=== PATIENT | female | born 1985 | race Caucasian/White ===

== ENCOUNTER → 2020-05-12 15:06 | Outpatient (CLI) | payer OTHER, MEDICAID, SELFPAY ==
[2020-05-12 16:02] LABS: Add Manual Diff / Slide Review NO; Basophils Absolute Auto 0 /uL (0-100); Basophils Percent Auto 0.3 % (0-2); Eosinophils Absolute Auto 300 /uL (0-450); Eosinophils Percent Auto 3.2 % (2-4); Hematocrit 35.1 % (36-46); Hemoglobin 11.7 g/dL (12.0-16.0); Lymphocytes Absolute Auto 1900 /uL (1100-4500); Mean Corpuscular HGB Conc 33.4 % (30-36); Mean Corpuscular Hemoglobin 29.5 PG (26-34); Mean Corpuscular Volume 88.3 fL (80-100); Monocytes Absolute Auto 400 /uL (0-900); Monocytes Percent Auto 3.9 % (3-14); Neutrophils Absolute Auto 8000 /uL (1500-7000); Neutrophils Percent Auto 74.6 % (50-75); Platelet Count 241 X10^3/uL (150-400); Red Blood Cell Count 3.97 X10^6/uL (4.0-5.2); Red Cell Distribution Width 13.4 % (11.6-14.8); White Blood Cell Count 10.7 X10^3/uL (4.5-11.0)
[2020-05-12 16:18] LABS: Appearance Urine UA CLOUDY; Bilirubin Urine UA NEGATIVE (NEGATIVE); Color Urine UA YELLOW; Glucose Urine UA NEGATIVE (Negative); Ketones Urine UA NEGATIVE (NEGATIVE); Leukocyte Esterase Urine UA NEGATIVE (NEGATIVE); Nitrite Urine UA NEGATIVE (Negative); Occult Blood Urine UA NEGATIVE (Negative); Protein Urine UA NEGATIVE (Negative); Urobilinogen Urine UA 0.2 E.U./dL (0.2)
[2020-05-12 17:22] LABS: Hepatitis B Surface Antigen NEGATIVE s/c (NEGATIVE); Rubella Antibody IgG 6.5 IU/mL (>15)
[2020-05-12 18:04] LABS: HIV 1 & 2 Ab/Ag 4th Gen Combo NEGATIVE (NEGATIVE); Hep C Virus Ab w/Reflex Quant NEGATIVE s/c (NEGATIVE)
[2020-05-13 09:06] LABS: RPR Screen Non Reactive (Non Reactive)
[2020-05-13 10:40] LABS: Varicella IgG Antibody 398 index (Immune >165)
[2020-05-14 20:08] LABS: Estriol, Free 0.89 ng/mL (.); Inhibin A, Dimeric 84.15 pg/mL (.); Inhibin A, MoM 0.67 (.); Maternal Ethnicity Caucasian (.); Maternal Weight 256 lbs (.); Number of Fetuses No (.); OSBR Risk 1 IN 10000 (.); Results Report (.); Test Results *Screen Negative* (.); hCG, Serum 22759 mIU/mL (.)
== END ==
PROVIDERS: PCP Family Medicine; Referring Provider Obstetrics & Gynecology; Visit Provider Obstetrics & Gynecology
DX: Z34.82 Encounter for supervision of other normal pregnancy, second trimester (principal); Z3A.18 18 weeks gestation of pregnancy
CPT/HCPCS: 36415; 80055; 81003; 82105; 82677; 84702; 86336; 86787; 86803; 86850; 86900; 86901; 87086; 87389

== ENCOUNTER → 2020-05-30 12:14 | Outpatient (CLI) | payer OTHER, MEDICAID, SELFPAY ==
--- NOTE | 2020-05-30 12:14 | DI.US.S_ITS ---
PROCEDURE: US OB >= 14 WEEKS FETUS INDICATIONS: ANATOMY OUTSIDE/PRIOR DATING DATA: Last menstrual period (LMP): 01/03/2020. LMP-based estimated date of delivery (SU): 10/09/2020 . First dating scan (date and location): 04/17/2020 . Estimated date of delivery (SU) from first dating scan: 10/08/2020 . TECHNIQUE: Real-time scanning was performed of the fetus, with image documentation and biometric measurements. Endovaginal scanning: No COMPARISON: [facility], , OB >= 14 WEEKS FETUS, 04/17/2020, 13:14. FINDINGS: General: A single living intrauterine gestation is present. Presentation: Transverse. Placenta: Placental position is anterior , without previa. Amniotic fluid index: 16.6 cm, normal range is 5-24 cm. heart rate: 153 beats per minute. Maternal cervical canal: 3.5 cm long. Normal lower limit is 2.5 cm. biometrics: Biparietal diameter: 21 weeks 3 days Head circumference: 22 weeks Abdominal circumference: 23 weeks Femur length: 22 weeks 5 days Estimated gestational age from initial scan: 21 weeks 2 days Composite gestational age from present scan: 22 weeks 2 days Estimated weight and percentile: 527 g; 98th percentile Measurement variability for biometric dating: +/- 7 days from 14 weeks to 15 weeks 6 days gestation, +/- 10 days from 16 weeks to 21 weeks 6 days gestation, +/- 2 weeks from 22 weeks to 27 weeks 6 days gestation, +/- 3 weeks for 28 weeks gestation or later. weight reference: 4500 g or EFW >90/95% is considered macrosomia or large for gestational age. EFW <10% is small for gestational age. EFW 5% or less is considered intra-uterine growth restriction. Anatomic survey: Neuro: Ventricles are non-dilated at less than 10 mm. Cisterna magna is normal at 3-11 mm. Cerebellum is normal in size and morphology. Nuchal skin fold: Normal at less than 6 mm between 14-21 weeks gestational age. Face: Nose and lips, facial profile are normal. Spine: No evidence for spina bifida. Heart: Suboptimally visualized. Diaphragm: Diaphragm is intact. Stomach: Left-sided stomach is present. Kidneys: No hydronephrosis. Normal is less than 5 mm in 2nd trimester, less than 7 mm in 3rd trimester. Cord: 3-vessel cord has orthotopic insertion. Bladder: Normal in size. Extremities: Right upper extremity not well visualized; otherwise normal extremities. IMPRESSION: 1. Single living IUP redemonstrated and interval growth is greater than expected with estimated weight 98th percentile. Follow-up recommended. 2. heart not well visualized as well as the right upper extremity; otherwise normal anatomy. Follow-up recommended. Dictated by: Christofer KRAUSE Interpreted: Colin Petersen MD on 05/30/2020 at 16:42 Approved by: Colin Petersen M.D. on 05/30/2020 at 17:23
== END ==
PROVIDERS: PCP Family Medicine; Referring Provider Obstetrics & Gynecology; Visit Provider Obstetrics & Gynecology
DX: Z34.82 Encounter for supervision of other normal pregnancy, second trimester (principal); Z3A.22 22 weeks gestation of pregnancy
CPT/HCPCS: 76811

== ENCOUNTER → 2020-06-24 08:41 | Outpatient (CLI) | payer OTHER, MEDICAID, SELFPAY ==
[2020-06-24 10:32] LABS: Hematocrit 33.5 % (36-46); Hemoglobin 11.5 g/dL (12.0-16.0)
[2020-06-24 11:44] LABS: GTT (PREG) 1 Hour PP 50gm Dose 87 mg/dL (76-139)
== END ==
PROVIDERS: PCP Family Medicine; Referring Provider Obstetrics & Gynecology; Visit Provider Obstetrics & Gynecology
DX: Z34.82 Encounter for supervision of other normal pregnancy, second trimester (principal); Z3A.26 26 weeks gestation of pregnancy
CPT/HCPCS: 36415; 82950; 85014; 85018; 87086

== ENCOUNTER → 2020-07-17 15:57 | Outpatient (CLI) | payer OTHER, MEDICAID, SELFPAY ==
[2020-07-17 20:51] LABS: Urine N gonorrhoeae NOT DETECTED
[2020-07-17 21:07] LABS: Urine Chlamydia NOT DETECTED
== END ==
PROVIDERS: PCP Family Medicine; Visit Provider Obstetrics & Gynecology
DX: Z34.82 Encounter for supervision of other normal pregnancy, second trimester (principal); Z3A.28 28 weeks gestation of pregnancy
CPT/HCPCS: 87491; 87591

== ENCOUNTER 2020-09-10 10:19 | Outpatient (CLI) | payer OTHER, MEDICAID, SELFPAY ==
[2020-09-10 11:12] LABS: Add Manual Diff / Slide Review NO; Basophils Absolute Auto 0 /uL (0-100); Basophils Percent Auto 0.2 % (0-2); Eosinophils Absolute Auto 300 /uL (0-450); Eosinophils Percent Auto 3.4 % (2-4); Hematocrit 34.8 % (36-46); Hemoglobin 11.7 g/dL (12.0-16.0); Lymphocytes Absolute Auto 1600 /uL (1100-4500); Lymphocytes Percent Auto 17.9 % (25-40); Mean Corpuscular HGB Conc 33.7 % (30-36); Mean Corpuscular Hemoglobin 30.1 PG (26-34); Mean Corpuscular Volume 89.2 fL (80-100); Monocytes Absolute Auto 500 /uL (0-900); Monocytes Percent Auto 5.8 % (3-14); Neutrophils Absolute Auto 6400 /uL (1500-7000); Neutrophils Percent Auto 72.7 % (50-75); Platelet Count 151 X10^3/uL (150-400); Red Cell Distribution Width 13.8 % (11.6-14.8); White Blood Cell Count 8.8 X10^3/uL (4.5-11.0)
[2020-09-10 11:24] LABS: Aspartate Aminotransferase 24 IU/L (14-36); BUN Creatinine Ratio 22.7 (6-22); Blood Urea Nitrogen 10 mg/dL (7-17); Estimated Glomerular Filt Rate > 60.0 mL/min (>60); Uric Acid 6.2 mg/dL (2.5-6.2)
== END 2020-09-10 13:19 | disposition home or self-care (01) ==
LOC: LABOR 12:26 → OB 09-11 06:33
PROVIDERS: PCP Family Medicine; Referring Provider Obstetrics & Gynecology; Visit Provider Obstetrics & Gynecology
DX: O13.3 Gestational [pregnancy-induced] hypertension without significant proteinuria, third trimester (principal); O09.523 Supervision of elderly multigravida, third trimester; Z3A.35 35 weeks gestation of pregnancy
CPT/HCPCS: 36415; 59025; 59050; 84450; 84550; 85025; 87653; G0378; G0379

== ENCOUNTER → 2020-09-10 10:21 | Outpatient (CLI) | payer OTHER, MEDICAID, SELFPAY ==
[2020-09-11 13:00] LABS: Strep Grp B PCR NEG for Grp B Strep
== END ==
PROVIDERS: PCP Family Medicine; Visit Provider Obstetrics & Gynecology
DX: Z34.83 Encounter for supervision of other normal pregnancy, third trimester (principal); Z3A.35 35 weeks gestation of pregnancy
CPT/HCPCS: 87653

== ENCOUNTER 2020-09-17 10:01 | Outpatient (CLI) | payer OTHER, MEDICAID, SELFPAY | END 2020-09-17 10:50 | disposition home or self-care (01) | LOC: LABOR 10:36 → OB 09-22 08:03 | PROVIDERS: PCP Family Medicine; Referring Provider Obstetrics & Gynecology; Visit Provider Obstetrics & Gynecology | DX: O13.3 Gestational [pregnancy-induced] hypertension without significant proteinuria, third trimester (principal); O99.891 Other specified diseases and conditions complicating pregnancy; O12.00 Gestational edema, unspecified trimester; O47.03 False labor before 37 completed weeks of gestation, third trimester; R51.9 Headache, unspecified; H53.8 Other visual disturbances; Z3A.36 36 weeks gestation of pregnancy | CPT/HCPCS: 36415; 59025; 82565; 84450; 84460; 84520; 84550; 85025; G0378; G0379 ==

== ENCOUNTER → 2020-09-17 11:25 | Outpatient (CLI) | payer OTHER, MEDICAID, SELFPAY ==
[2020-09-17 11:40] LABS: Add Manual Diff / Slide Review NO; Basophils Absolute Auto 0 /uL (0-100); Basophils Percent Auto 0.5 % (0-2); Eosinophils Absolute Auto 300 /uL (0-450); Eosinophils Percent Auto 3.2 % (2-4); Hematocrit 34.8 % (36-46); Hemoglobin 11.7 g/dL (12.0-16.0); Lymphocytes Absolute Auto 1400 /uL (1100-4500); Lymphocytes Percent Auto 15.8 % (25-40); Mean Corpuscular HGB Conc 33.5 % (30-36); Mean Corpuscular Hemoglobin 29.8 PG (26-34); Monocytes Absolute Auto 500 /uL (0-900); Neutrophils Absolute Auto 6900 /uL (1500-7000); Neutrophils Percent Auto 75.5 % (50-75); Platelet Count 167 X10^3/uL (150-400); Red Blood Cell Count 3.91 X10^6/uL (4.0-5.2); Red Cell Distribution Width 13.7 % (11.6-14.8); White Blood Cell Count 9.1 X10^3/uL (4.5-11.0)
[2020-09-17 11:52] LABS: Alanine Aminotransferase 19 IU/L (<35); Aspartate Aminotransferase 30 IU/L (14-36); BUN Creatinine Ratio 22.7 (6-22); Blood Urea Nitrogen 10 mg/dL (7-17); Estimated Glomerular Filt Rate > 60.0 mL/min (>60); Uric Acid 6.7 mg/dL (2.5-6.2)
== END ==
PROVIDERS: PCP Family Medicine; Referring Provider Obstetrics & Gynecology; Visit Provider Obstetrics & Gynecology
DX: O99.891 Other specified diseases and conditions complicating pregnancy (principal); H53.8 Other visual disturbances; O12.00 Gestational edema, unspecified trimester; R51.9 Headache, unspecified
CPT/HCPCS: 36415; 82565; 84450; 84460; 84520; 84550; 85025

== ENCOUNTER 2020-09-22 03:11 | Inpatient (IN) | payer OTHER, MEDICAID, SELFPAY ==
[2020-09-22] VITALS (7 sets, daily range): BP systolic 115–139; BP diastolic 69–88; PULSE 70–113; RESP 14–20; TEMP 36.6; O2SAT 97–100
--- NOTE | 2020-09-22 03:41 | P.HPOB_ITS ---
OB HPI Date/Time Date of admission: 09/22/20 Date Patient Seen: 09/22/20 Time Patient Seen: 04:03 History of Present Condition Chief complaint: Evaluation of Labor : 2 Para: 1 Estimated Date of Delivery: 10/09/20 Estimated Gestational Age (weeks): 37 Narrative: Tayla Verdin is a 34 year old @37+4 admitted in active labor, s/p SROM for clear fluid 3 hours prior to admission. The patient reports that her contractions began 4 hours prior to admission, and she has had some bloody show. Patient has not felt movement over the last few hours. The patient reports a severe sharp pain at the site of her prior uterine incision with each contraction. She denies headaches, visual changes, chest pain, or other preeclampsia symptoms, though she was diagnosed with gestational hypertension 2 weeks ago and started on 100 mg of labetalol b.i.d.. The patient denies any other complications. The patient was transferred by air from [facility], and the transferring paramedics autonomously administered a 2.5mg magnesium sulfate bolus en route as well as terbutaline, though this was not discussed with the receiving team prior to administration. The patient reports a history of prior section, saying ?part of the head came out and the rest did not, so they had to do an emergency .The patient does not desire a tubal ligation. She denies any other contributory medical, surgical, or family history. Indications Operative indications ( section): previous uterine surgery History of Present care: good care, initiated at week # (15) and number of visits (8) Dating criteria: LMP confirmed by 2nd trimester US Ultrasounds: normal mid trimester US Obstetrical complications: gestational hypertension Medical complications: none Preadmission Labs Blood type: A (+) positive -: Antibody screen: negative, GBS status: negative, HBsAG: negative, HIV: negative and RPR/VDLR: negative -: Chlamydia screen: not detected and Gonorrhea screen: not detected -: Rubella: not immune and Varicella: immune HCAB: negative Quad screen: Normal Urine: No growth 1 hr GTT: 87 Prior (ies) History: G1: 08/10/12, 39.4, 8#13, CS in second stage, UW, ?shoulder dystocia?, male, [place] Evaluation Evaluation Baseline heart rate: 135 Variability: Moderate (11-25) monitor accelerations: Present Monitor Decelerations: Variable Contraction Frequency (minutes): 2 Uterine Contraction Intensity: Strong/Firm Category of Tracing: Non-reactive Status: Category ll Cervical dilation (cm): 8 Cervical effacement (%): 100 station: -2 Comments: grossly ruptured, clear fluid. [facility] Medical History AMA (advanced maternal age) multigravida 35+ Anxiety Asthma Migraine Ovarian cyst Pneumonia Surgical History H/O breast augmentation (~2008) History of appendectomy History of carpal tunnel surgery of right wrist (~2014) Hx of tonsillectomy (~2016) S/P primary low transverse (~08/10/12) S/P wisdom tooth extraction (~2008) Family History Mother History of prediabetes Cancer Breast cancer AA (alcohol abuse) Father Joint replaced Sepsis Grandmother Head injury due to trauma Smoker Obesity Wheelchair bound Grandfather Cancer Colon cancer Grandmother Alzheimers disease Grandfather Head injury due to trauma AA (alcohol abuse) Sister No problems noted. 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 current occupational exposures/hazards: No special tiff needs: No Smoking Status: Never smoker second hand exposure: No alcohol intake: former (pre- : very rare use) substance use type: does not use Meds Home Medications and Allergies Home Medications Medication Instructions Recorded Confirmed Type dextroamphetamine-amphetamine 20 20 mg PO DAILY 04/15/20 09/17/20 History mg tablet ferrous sulfate 325 mg (65 mg 325 mg PO DAILY 04/15/20 09/17/20 History iron) tablet prenat.vits,amna,ikt-epvf-kzfax 1 tab PO DAILY 04/15/20 09/17/20 History labetalol 100 mg tablet 100 mg PO BID #60 tab 09/10/20 09/17/20 Rx Allergies Allergy/AdvReac Type Severity Reaction Status Date / Time amoxicillin Allergy Severe Major Hives Verified 09/17/20 10:53 Penicillins Allergy Severe Severe Verified 09/17/20 10:53 Hives Review of Systems Constitutional Constitutional: Reports system reviewed and no additional complaints, except as documented Cardiovascular Cardiovascular: Reports system reviewed and no additional complaints, except as documented Respiratory Respiratory: Reports system reviewed and no additional complaints, except as documented Gastrointestinal Gastrointestinal: Reports as per HPI Genitourinary Genitourinary: Reports as per HPI Neurologic Neurologic: Reports system reviewed and no additional complaints, except as documented Exam Vital Signs (past 8 hours): 154/76 Const General: cooperative GI Other: Significant tenderness over prior CS incision Extrem Other: 3+ LE edema, 2+ UE edema Objective Labs Result Diagrams: 09/22/20 03:25 09/22/20 04:00 Assessment and Plan Assessment and Plan Assessment and Plan narrative: This patient was admitted in active labor with a history of prior CS for ?shoulder dystocia, with advanced cervical dilation, high station, a cat 2 heart rate tracing, severe sharp suprapubic pain with contractions and significant tenderness over her prior incision. Concern for in progress or incipient uterine rupture was high, and she was taken for urgent section as detailed in the operative report. The lower uterine segment was paper thin but not ruptured, and she was delivered of a healthy baby boy without further complication. She has a diagnosis of gHTN but did not sustain severe range blood pressures and has no other severe features. - preeclampsia labs pending - routine post CS care - ordered for prophylactic lovenox 40mg daily to start 12 hours postop, SCDs in place and running - close monitoring of BPs
[2020-09-22 03:50] LABS: Add Manual Diff / Slide Review NO; Basophils Absolute Auto 100 /uL (0-100); Basophils Percent Auto 0.7 % (0-2); Eosinophils Absolute Auto 200 /uL (0-450); Eosinophils Percent Auto 1.8 % (2-4); Hematocrit 35.1 % (36-46); Hemoglobin 11.7 g/dL (12.0-16.0); Lymphocytes Absolute Auto 2200 /uL (1100-4500); Lymphocytes Percent Auto 22.6 % (25-40); Mean Corpuscular HGB Conc 33.2 % (30-36); Mean Corpuscular Hemoglobin 29.5 PG (26-34); Mean Corpuscular Volume 88.8 fL (80-100); Monocytes Absolute Auto 600 /uL (0-900); Monocytes Percent Auto 6.4 % (3-14); Neutrophils Absolute Auto 6600 /uL (1500-7000); Neutrophils Percent Auto 68.5 % (50-75); Platelet Count 179 X10^3/uL (150-400); Red Blood Cell Count 3.96 X10^6/uL (4.0-5.2); Red Cell Distribution Width 13.9 % (11.6-14.8); White Blood Cell Count 9.7 X10^3/uL (4.5-11.0)
[2020-09-22 03:57] LABS: COVID19 - ADMIT (NP swab/PCR) Negative (Negative)
[2020-09-22] MEDS: CLINDAMYCIN 900 MG/50 ML PIGGYBACK 50 MG IV (04:05)
[2020-09-22] MEDS: ACETAMINOPHEN IV 1,000 MG/100 ML VIAL 400 MG IV (04:25)
[2020-09-22] MEDS: LACTATED RINGERS 1,000 ML 100 ML IV (04:25)
--- NOTE | 2020-09-22 04:26 | SUR.OPER ---
Supine on Padded OR bed, head on pillow, safety belt at thigh, arms secured on padded arm boards at <90 degrees abduction. Bump under right buttock. Legs uncrossed with pillow under knees, gel pad to heels, tape over blanket to lower legs.
[2020-09-22 04:28] LABS: Alanine Aminotransferase 21 IU/L (<35); Albumin 3.2 g/dL (3.5-5.0); Albumin Globulin Ratio 1.1 (1.0-2.8); Alkaline Phosphatase 119 U/L (38-126); Aspartate Aminotransferase 32 IU/L (14-36); Bilirubin Total 0.4 mg/dL (0.2-1.3); Blood Urea Nitrogen 16 mg/dL (7-17); Calcium 9.5 mg/dL (8.4-10.2); Carbon Dioxide 22 mmol/L (22-32); Chloride 106 mmol/L (98-107); Estimated Glomerular Filt Rate > 60.0 mL/min (>60); Globulin 2.9 g/dL (1.7-4.1); Glucose 108 mg/dL (70-100); HEMOLYSIS 18 (0-50); Sodium 135 mmol/L (137-145); Total Protein 6.1 g/dL (6.3-8.2); Uric Acid 7.7 mg/dL (2.5-6.2)
[2020-09-22 04:34] LABS: Lactate Dehydrogenase 512 U/L (313-618)
--- NOTE | 2020-09-22 04:37 | SUR.OPER ---
Viable male delivered at 04:31. Cord blood vials x2 and placenta sent with L&D RN.
[2020-09-22] MEDS: ONDANSETRON 4 MG/2 ML INJ IV (05:31)
--- NOTE | 2020-09-22 05:34 | PM.OBCS.1 ---
Procedure & Clinicians Procedure: repeat section Same procedure as scheduled: Yes Indications: prior section, labor, suspected macrosomia Surgeon: Judy Vanessa Farm Equipment Assembler: Alissa Deshpande Reason for Farm Equipment Assembler: Assistance with emergent CS- delivery of infant, retraction Anesthesia Type: Spinal Operative Notes Findings: Copious Closure Type: primary Specimen(s): cord blood Estimated Blood Loss (mL): 500 Procedure in detail: EBL: 500ccs Fluids:1700ccs LR UOP: 50ccs concentrated yellow urine Findings: Male infant in cephalic presentation, Apgars 9+9, weight 8#12, normal uterus, tubes, ovaries. Copious scar tissue from subcutaneous layer down to uterus, with omental adhesions to bladder, anterior abdominal wall and anterior uterus. Procedures: The patient was taken to the operating room where spinal anesthesia was placed and found to be adequate. She was prepped and draped in the normal sterile fashion in the dorsal supine position with a leftward tilt. A vaginal prep was performed. A Pfannenstiel skin incision was made with a scalpel and carried through to the underlying layer of fascia. The fascia was incised in the midline and the incision extended laterally with Winston scissors. The superior aspect of this incision was grasped with Daly clamps, elevated, and the underlying rectus muscles dissected off bluntly and with the curved Winston scissors. Attention was then turned to the inferior aspect of this incision which, in a similar fashion, was grasped, tented up with the Daly clamps, and the rectus muscles dissected off bluntly and with the curved Winston scissors. Scar tissue was reduced with the bovie and the curved mayos throughout. The rectus muscles were then in the midline, and the peritoneum identified, tented up, and entered sharply with Metzenbaum scissors. The peritoneal incision was extended superiorly and inferiorly with good visualization of the bladder. The bladder blade was inserted and the vesicouterine peritoneum identified, grasped with pickups, and entered sharply with the Metzenbaum scissors. This incision was extended laterally, and the bladder flap created digitally. The bladder blade was then reinserted and the lower uterine segment incised in transverse fashion with the scalpel. The uterine incision was bluntly extended laterally. The bladder blade was removed, and the infant's head delivered atraumatically. After 30 seconds of delayed cord clamping, the cord was clamped and cut. The nose and mouth were suctioned as needed with a bulb syringe, and the was handed off to awaiting pediatricians. The placenta was then removed spontaneously, and the uterus was exteriorized and cleared of all clots and debris. The uterine incision was repaired with 1-0 chromic in a running, locked fashion and a 2nd layer of the same suture was used to obtain excellent hemostasis. The omental adhesions were removed well above their attachment to the bladder to prevent later entrapment of bowel. The uterus was returned to the abdomen, and the gutters were cleared of all clots and debris. Reduction of scar tissue made a bladder flap and peritoneum closure not feasible, and the fascia was reapproximated with 0 Vicryl in a running fashion. The subcutaneous layer was placed with 3 0 Vicryl in an interrupted fashion and the skin was closed with 4-0 biosyn in a running fashion. The patient tolerated the procedure well. Sponge lap and needle counts were correct x2. 900g clindamycin was given at commencement of the case, and 5 mg/kg gentamicin ordered but given after the case when available. The patient was taken to the recovery room in stable condition. Complications: none [place] Baby 1: Infant Gender: Male Presentation: vertex Position: Left Occiput Anterior Placental Delivery Description: Manual Removal Cord Vessel Description: 3 Vessels score (1 min): 9 score (5 min): 9 weight: 8 lb 12 oz Post-operative Condition: stable Disposition: PACU Aftercare: routine postop
[2020-09-22] MEDS: MEPERIDINE 50 MG/ML INJ 12.5 MG IV (05:36)
--- NOTE | 2020-09-22 06:20 | SUR.PHASEI ---
Pt arrived to PACU awake, with shakes and c/o nausea. Bare Hugger applied, medicated with ondansetron then when nausea soon resolved medicated with demerol. Stable PACU stay to , report given and pt left in stable condition.
[2020-09-22 07:20] LABS: Creatinine Urine Random 275.9 mg/dL; Protein (Total) Urine Random 15 mg/dL (0-12); Protein Creatinine Ratio Urine 0.05 GRAM/24H
[2020-09-22] MEDS: OXYCODONE IR 5 MG TABLET PO ×2 (07:49→08:46)
[2020-09-22] MEDS: LANOLIN OINT 7 GM 1 APPLIC TOP (07:49)
[2020-09-22] MEDS: LABETALOL 100 MG TABLET PO ×2 (08:46→21:20)
[2020-09-22] MEDS: KETOROLAC 30 MG/ML VIAL IV ×3 (11:16→23:29)
[2020-09-22] MEDS: OXYCODONE IR 10 MG TABLET PO ×3 (12:31→20:50)
[2020-09-22] MEDS: ACETAMINOPHEN 325 MG TABLET 650 MG PO (18:20)
[2020-09-23 00:15] VITALS: BP 97/62; PULSE 113
[2020-09-23] MEDS: ACETAMINOPHEN 325 MG TABLET 650 MG PO ×4 (00:30→18:28)
[2020-09-23] MEDS: OXYCODONE IR 10 MG TABLET PO ×6 (00:49→22:00)
[2020-09-23] MEDS: IBUPROFEN 600 MG TABLET PO ×3 (05:51→18:29)
[2020-09-23 06:54] LABS: Add Manual Diff / Slide Review NO; Basophils Absolute Auto 0 /uL (0-100); Basophils Percent Auto 0.2 % (0-2); Eosinophils Absolute Auto 100 /uL (0-450); Eosinophils Percent Auto 1.4 % (2-4); Hematocrit 29.1 % (36-46); Hemoglobin 9.7 g/dL (12.0-16.0); Lymphocytes Absolute Auto 1000 /uL (1100-4500); Lymphocytes Percent Auto 13.2 % (25-40); Mean Corpuscular HGB Conc 33.3 % (30-36); Mean Corpuscular Hemoglobin 29.9 PG (26-34); Mean Corpuscular Volume 89.8 fL (80-100); Monocytes Absolute Auto 400 /uL (0-900); Monocytes Percent Auto 5.3 % (3-14); Neutrophils Absolute Auto 6300 /uL (1500-7000); Neutrophils Percent Auto 79.9 % (50-75); Platelet Count 147 X10^3/uL (150-400); Red Blood Cell Count 3.24 X10^6/uL (4.0-5.2); Red Cell Distribution Width 14.3 % (11.6-14.8); White Blood Cell Count 7.9 X10^3/uL (4.5-11.0)
[2020-09-23] MEDS: ENOXAPARIN 40 MG/0.4 ML SYRINGE SUBCUT (08:45)
[2020-09-23 08:46] VITALS: BP 110/74; PULSE 80
[2020-09-23] MEDS: LABETALOL 100 MG TABLET PO ×2 (08:46→21:14)
[2020-09-23] MEDS: ALBUMIN HUMAN 25 GM/100 ML VIAL IV (13:00)
[2020-09-23] MEDS: FUROSEMIDE 20 MG/2 ML VIAL IV (14:42)
--- NOTE | 2020-09-23 19:13 | PM.OBPN.1 ---
Subjective - OB Subjective Patient comments: no complaints, pain well controlled, tolerating diet and flatus present baby status: doing well and nursing well [place] feeding status: breast and bottle feeding Date Patient Seen: 09/23/20 Time Patient Seen: 19:13 Interval history: Patient is a 34-year-old 3 para 2 post op day # 1 status post repeat low-transverse section. She is and supplementing. Pain is fairly well controlled. She is ambulating without assistance. She has voided without the catheter. She has had over 2000 cc of urine out since diuretics. Exam Vital Signs (past 8 hours): Oxygen Delivery Method Room Air Narrative Exam Narrative: Generally: Patient is sitting up in bed, nursing infant, no acute distress Lungs: Clear to auscultation bilaterally Cardiovascular: Regular rate and rhythm Abdomen: Soft, appropriately tender. Fundus: Firm at U Incision: Clean dry and intact with Aquacel dressing Extremities: 1+ edema, negative home Objective Labs Result Diagrams: 09/23/20 06:31 09/22/20 04:00 Labs: Laboratory Results - last 24 hr 09/23/20 06:31 WBC 7.9 RBC 3.24 L Hgb 9.7 L Hct 29.1 L MCV 89.8 MCH 29.9 MCHC 33.3 RDW 14.3 Plt Count 147 L Neut % (Auto) 79.9 H Lymph % (Auto) 13.2 L Mathews % (Auto) 5.3 Eos % (Auto) 1.4 L Baso % (Auto) 0.2 Neut # (Auto) 6300 Lymph # (Auto) 1000 L Mathews # (Auto) 400 Eos # (Auto) 100 Baso # (Auto) 0 Assessment & Plan Plan day: 1 plan OB: routine postop care and other (Check BMP) Time Spent With Patient Time: Total time spent is greater than 50% in coordination of care (as documented) at patient's floor/unit and/or counseling patient: Time with patient: 15-24 minutes
[2020-09-23 20:52] LABS: BUN Creatinine Ratio 17.1 (6-22); Blood Urea Nitrogen 7 mg/dL (7-17); Calcium 9.2 mg/dL (8.4-10.2); Carbon Dioxide 26 mmol/L (22-32); Chloride 102 mmol/L (98-107); Estimated Glomerular Filt Rate > 60.0 mL/min (>60); Glucose 96 mg/dL (70-100); HEMOLYSIS < 15 (0-50); Potassium 3.7 mmol/L (3.4-5.1); Sodium 134 mmol/L (137-145)
[2020-09-24] MEDS: IBUPROFEN 600 MG TABLET PO ×2 (00:40→06:57)
[2020-09-24] MEDS: ACETAMINOPHEN 325 MG TABLET 650 MG PO ×2 (00:40→06:57)
[2020-09-24] MEDS: OXYCODONE IR 10 MG TABLET PO ×2 (02:33→10:00)
[2020-09-24] MEDS: OXYCODONE IR 5 MG TABLET PO (06:03)
[2020-09-24 10:01] VITALS: BP 126/75
[2020-09-24] MEDS: LABETALOL 100 MG TABLET PO (10:01)
--- NOTE | 2020-10-17 15:52 | P.DS_ITS ---
Discharge Providers Provider Date of admission: 09/22/20 Discharge Date: 09/24/20 Primary care physician: Saeid Sarabia MD Discharge provider: Dayanara Jeffries MD Summary Hospital Course Date Patient Seen: 09/24/20 Time Patient Seen: 13:00 Diagnoses: 37 4/7 weeks gestation Previous section Spontaneous rupture membranes Gestational hypertension Hospital Course: Patient is a 34-year-old 2 para 2 who presented on September 22, 2020 with spontaneous rupture of membranes at 37 4/7 weeks gestation. She had had a prior section. She underwent a repeat low-transverse section. On postop day # 1 due to severe swelling patient was given IV Lasix and IV albumin to try to diurese. She diuresed about 5 L of fluid. Her course was otherwise unremarkable and she was discharged home on postop day # 2. Peripartum Data Infant Delivery Method: Section Laceration Description: None Episiotomy description: None Procedures: Spinal anesthesia Repeat low-transverse section complications: none [place] 1: Disposition of : home Status at Discharge Cognitive/behavioral status at discharge: oriented Functional status at discharge: independent ambulation Overall status at discharge: patient is progressing back to baseline Time Spent with Patient Time attestation: Total time spent providing and/or coordinating discharge services: Time spent: Less than 30 minutes Exam Narrative Exam Narrative: Generally: Patient is sitting up in bed, holding infant, no acute distress Lungs: Clear to auscultation bilaterally Cardiovascular: Regular rate and rhythm Fundus: Firm at U -1 Incision: Clean dry and intact with Aquacel dressing Extremities: 2+ pitting edema. 1+ DTRs. Negative Homans. Discharge Plan Discharge orders & Medications Discharge Orders: Discharge (Order); Ordered 10/17/20 Ordered By: Dayanara Jeffries Prescriptions: No Action labetalol 100 mg tablet 100 mg PO BID Qty: 60 RF: 0 oxycodone 10 mg tablet 10 mg PO Q4H PRN (Reason: pain) Qty: 42 RF: 0 oxycodone 10 mg tablet 10 mg PO Q6H PRN (Reason: pain) Qty: 30 RF: 0 furosemide [Lasix] 20 mg tablet 20 mg PO DAILY Qty: 30 RF: 2 prenat.vits,amna,goc-rimd-sxnqb Tablet 1 tab PO DAILY RF: 0 ibuprofen 600 mg Tablet 600 mg PO Q6H PRN (Reason: Fever/Mild Pain (1-3)) 30 Days Qty: 90 RF: 0 oxycodone 10 mg tablet 10 mg PO Q4H PRN (Reason: Pain (Scale Score 7-10)) Qty: 14 RF: 0 Follow up/Referrals: Saeid Sarabia MD [Primary Care Provider] - Discharge Data Primary Care Provider: Saeid Sarabia
== END 2020-09-24 11:50 | disposition home or self-care (01) | DRG 540 ==
PROVIDERS: Obstetrics & Gynecology; Admitting Provider Obstetrics & Gynecology; PCP Family Medicine; Referring Provider Obstetrics & Gynecology; Visit Provider Obstetrics & Gynecology
PROC: 10D00Z1 Extraction of Products of Conception, Low, Open Approach (ICD-10-PCS; CPT 59514; principal; 2020-09-22 04:00)
DX: O13.4 Gestational [pregnancy-induced] hypertension without significant proteinuria, complicating childbirth (principal); O36.63X0 Maternal care for excessive fetal growth, third trimester, not applicable or unspecified; Z3A.37 37 weeks gestation of pregnancy; Z37.0 Single live birth
CPT/HCPCS: 36415; 59514; 80048; 80053; 82570; 83615; 84156; 84550; 85025; 86850; 86900; 86901; 87635; C9803; G0379; J0131; J1650; J1885; J1940; J2175; J2405; J2590; P9041

== ENCOUNTER 2020-10-01 13:51 | Inpatient (IN) | payer OTHER, MEDICAID, SELFPAY ==
[2020-10-01] VITALS (12 sets, daily range): BP systolic 104–128; BP diastolic 56–72; PULSE 85–121; RESP 10–25; TEMP 36.3–37.1; O2SAT 92–97; BMI 52.1; BMI 52.9
--- NOTE | 2020-10-01 13:52 | DI.CT.S_ITS ---
PROCEDURE: CT ANGIO CHEST PE PROTOCOL INDICATIONS: , post csection TECHNIQUE: After the administration of intravenous contrast, 2 mm thick sections acquired from the pulmonary apices to the posterior costophrenic angles. 3-dimensional maximum intensity projection (MIP) coronal and sagittal reformats were then acquired through the thorax. For radiation dose reduction, the following was used: automated exposure control, adjustment of mA and/or kV according to patient size. COMPARISON: None. FINDINGS: Image quality: Excellent. Pulmonary arteries: Pulmonary arteries are normal in size, and demonstrate no intraluminal filling defects to suggest central pulmonary embolism. Lungs and pleura: Lungs are clear. No pleural effusions or pneumothorax. Central and peripheral airways are patent. Mediastinum: Heart size is normal, without pericardial effusion. No mediastinal or hilar adenopathy. Thoracic aorta is normal in caliber and enhancement. Esophagus is normal in caliber, without hiatal hernia. Bones and chest wall: No suspicious bony lesions. Ribs and thoracic spine appear intact throughout. Thyroid gland contains a sub cm left thyroid nodule. No axillary or supraclavicular adenopathy. Abdomen: Visualized upper abdominal solid organs appear normal in the early arterial phase of enhancement. IMPRESSION: 1. No evidence of acute pulmonary emboli. 2. No evidence of acute pulmonary process. 3. Incidental subcentimeter left thyroid nodule. Dictated by: Jaswant Ronquillo M.D. on 10/01/2020 at 14:26 Approved by: Jaswant Ronquillo M.D. on 10/01/2020 at 14:29
--- NOTE | 2020-10-01 13:52 | DI.US.S_ITS ---
PROCEDURE: US ABDOMEN COMPLETE INDICATIONS: , RUQ PAIN, SWELLING, / HELLP TECHNIQUE: Real-time scanning was performed of the abdominal and retroperitoneal organs, with image documentation. COMPARISON: None. FINDINGS: Liver: Liver is normal in size and homogeneous in echotexture. Gallbladder: There is a moderately large gallstone mobile within the gallbladder lumen that measures up to 2.6 cm in dimension. The gallbladder and adjacent bile ducts otherwise appeared normal. Biliary ducts: Intrahepatic bile ducts are non-dilated. Extrahepatic bile duct caliber measures 6.2 mm. Normal is 6-7 mm or less in diameter, or 10 mm or less post-cholecystectomy. Pancreas: Visualized portions of the pancreas are sonographically normal. Spleen: Spleen is enlarged in size at 16 cm craniocaudad, and homogeneous in echotexture. Kidneys: Kidneys are normal in size and echotexture. Right kidney measures 14.7 cm long; left kidney measures 13.1 cm long. No hydronephrosis or nephrolithiasis. No solid masses. Aorta: Visualized aorta is normal in caliber at less than 3 cm. Iliacs: Proximal common iliac arteries are normal in caliber at less than 2.5 cm. IVC: Intrahepatic inferior vena cava is patent. Miscellaneous: No free abdominal fluid. IMPRESSION: Moderately large gallstone within the gallbladder lumen but no sign of acute cholecystitis or biliary obstruction. There is no sign of ascites. Splenomegaly, measuring up to 16.1 cm craniocaudad. The liver echotexture is homogeneous and normal throughout. Dictated by: Josh Morejon M.D. on 10/01/2020 at 15:51 Approved by: Josh Morejon M.D. on 10/01/2020 at 15:55
[2020-10-01 14:05] LABS: Add Manual Diff / Slide Review NO; Basophils Absolute Auto 0 /uL (0-100); Basophils Percent Auto 0.2 % (0-2); Eosinophils Absolute Auto 0 /uL (0-450); Eosinophils Percent Auto 0.4 % (2-4); Hematocrit 29.3 % (36-46); Hemoglobin 9.7 g/dL (12.0-16.0); Lymphocytes Absolute Auto 500 /uL (1100-4500); Lymphocytes Percent Auto 4.6 % (25-40); Mean Corpuscular HGB Conc 33.3 % (30-36); Mean Corpuscular Hemoglobin 29.4 PG (26-34); Mean Corpuscular Volume 88.3 fL (80-100); Monocytes Absolute Auto 400 /uL (0-900); Monocytes Percent Auto 3.3 % (3-14); Neutrophils Absolute Auto 10100 /uL (1500-7000); Neutrophils Percent Auto 91.5 % (50-75); Platelet Count 274 X10^3/uL (150-400); Red Blood Cell Count 3.31 X10^6/uL (4.0-5.2); Red Cell Distribution Width 14.8 % (11.6-14.8)
[2020-10-01] MEDS: MORPHINE 4 MG/ML INJ IV ×3 (14:19→15:00)
[2020-10-01 14:21] LABS: INR 1.2 (0.9-1.3); Prothrombin Time 13.5 SECONDS (10.1-12.7)
[2020-10-01 14:24] LABS: PTT Partial Thromboplastin Tim 22 SECONDS (26.4-36.2)
[2020-10-01] MEDS: SODIUM CHLORIDE 0.9% 1,000 ML 150 ML IV ×2 (14:26→15:29)
[2020-10-01 14:27] LABS: Alanine Aminotransferase 28 IU/L (<35); Albumin 3.1 g/dL (3.5-5.0); Alkaline Phosphatase 87 U/L (38-126); Aspartate Aminotransferase 26 IU/L (14-36); BUN Creatinine Ratio 28.6 (6-22); Bilirubin Total 0.7 mg/dL (0.2-1.3); Bilirubin Unconjugated 0.5 mg/dL (0.0-1.1); Blood Urea Nitrogen 16 mg/dL (7-17); Calcium 8.8 mg/dL (8.4-10.2); Carbon Dioxide 23 mmol/L (22-32); Chloride 106 mmol/L (98-107); Creatine Kinase 145 U/L (30-135); Estimated Glomerular Filt Rate > 60.0 mL/min (>60); Fibrinogen 570 mg/dL (211-428); Globulin 3.2 g/dL (1.7-4.1); Glucose 102 mg/dL (70-100); HEMOLYSIS 16 (0-50); Lactate Dehydrogenase 539 U/L (313-618); Potassium 4.2 mmol/L (3.4-5.1); Sodium 137 mmol/L (137-145); Total Protein 6.3 g/dL (6.3-8.2); Uric Acid 7.2 mg/dL (2.5-6.2)
[2020-10-01 14:39] LABS: NT-proBNP (BNP-Adult 18+) 275 pg/mL (<125); Troponin I < 0.012 ng/mL (0.01-0.034)
--- NOTE | 2020-10-01 14:41 | ED_ITS ---
HPI - Abdominal Pain General Chief Complaint: Abdominal Pain Stated Complaint: Possible HELLP syndrome Time Seen by Provider: 10/01/20 13:52 Source: patient, EMS and other (Dr. Jeffries, sent from OB appt on [facility]) Mode of arrival: EMS Limitations: no limitations History of Present Illness HPI narrative: This is a 34-year-old G2P P2, 9 days status post repeat with Dr. Judy spencer. Patient was seen today by Dr. Jeffries who is her regular OBGYN at outpatient clinic for scheduled follow-up. Patient developed acute onset right upper quadrant pain that radiates to her shoulder. Patient developed nausea and vomiting. She is also noted to be significantly more swollen in her extremities. Vitals were noted to be 148 for heart rate, 88% on room air and tachypneic at the [facility]. Patient was transferred here for workup for help, as well as further differential. Patient was aggressively diuresed with 7 L after her . She denies any headaches at this time. She does have pain with deep inspiration and does feel short of breath. She has not had any vision changes. Patient had states her incision seems to be healing well. She has has noted some decreased urine output but no other urinary symptoms. She has had bowel movements. And no black or bloody stools. Patient does have a history of asthma, migraine and has prior appendectomy. Related Data Home Medications Medication Instructions Recorded Confirmed prenat.vits,amna,xkg-egkl-dhrtl 1 tab PO DAILY 04/15/20 10/02/20 Previous Rx's Medication Instructions Recorded labetalol 100 mg tablet 100 mg PO BID #60 tab 09/10/20 oxycodone 10 mg tablet 10 mg PO Q4H PRN #20 tab 09/24/20 Allergies Allergy/AdvReac Type Severity Reaction Status Date / Time amoxicillin Allergy Severe Major Hives Verified 10/01/20 13:59 Penicillins Allergy Severe Severe Verified 10/01/20 13:59 Hives Review of Systems Review of Systems ROS Unobtainable: All systems reviewed & are unremarkable except as noted in HPI and below Patient History Medical History AMA (advanced maternal age) multigravida 35+ Anxiety Asthma Migraine Ovarian cyst Pneumonia Surgical History History of appendectomy History of bilateral breast reduction surgery History of carpal tunnel surgery of right wrist (~2014) Hx of tonsillectomy (~2016) S/P primary low transverse (~08/10/12) S/P wisdom tooth extraction (~2008) Family History Mother History of prediabetes Cancer Breast cancer AA (alcohol abuse) Father Joint replaced Sepsis Grandmother Head injury due to trauma Smoker Obesity Wheelchair bound Grandfather Cancer Colon cancer Grandmother Alzheimers disease Grandfather Head injury due to trauma AA (alcohol abuse) Sister No problems noted. 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 Patient appears to be in a significant amount of pain. HEENT: Head normocephalic, atraumatic, EOMI, pupils reactive, face symmetric, moist mucous membranes NECK: Supple, full range of motion CARDIOVASCULAR: Patient is tachycardic but regular rate and rhythm without murmurs, rubs or gallops. No JVD appreciated. Patient has bilateral lower extremity swelling. RESPIRATORY: Breath sounds equal bilaterally, no wheezes rales or rhonchi. Positive for tachypnea. Patient speaks in full sentences. ABDOMEN: Soft, patient has significant tenderness on exam, greatest at right upper quadrant. Normoactive bowel sounds all 4 quadrants. No guarding, positive for rebound. No rigidity, no mass, patient has incision in the crease of her pannus which appears clean dry and intact with edson still present. There is no purulent fluid or drainage present, no full outer, no erythema. : No CVA tenderness EXTREMITIES: Normal range of motion. Neurovascularly intact NEUROLOGICAL: Cranial nerves II through XII grossly intact. Moving all extremities. No hyperreflexia on bilateral patella exam, negative for clonus. SKIN: Warm, dry, no petechiae, no rashes or lesions other otherwise. Initial Vital Signs Initial Vital Signs: Vital Signs Pulse Rate 107 H 10/01/20 13:52 Respiratory Rate 22 10/01/20 13:52 Blood Pressure 115/56 L 10/01/20 13:52 Pulse Oximetry 95 10/01/20 13:52 Course Orders Ordered: Acetaminophen (Acetaminophen 325 Mg Tablet) 650 mg PO Q6H PRN PRN Reason: Fever/Mild Pain (1-3) Last Admin: 10/02/20 02:41 Dose: 650 mg Documented by: KERMIT Docusate Sodium (Docusate 250 Mg Capsule) 250 mg PO BID [facility] Last Admin: 10/03/20 21:59 Dose: 250 mg Documented by: Admin: 10/03/20 09:23 Dose: 250 mg Documented by: Admin: 10/02/20 21:19 Dose: 250 mg Documented by: Admin: 10/02/20 09:15 Dose: 250 mg Documented by: LEO Enoxaparin Sodium (Enoxaparin 40 Mg/0.4 Ml Syringe) 40 mg SUBCUT BID [facility] Last Admin: 10/03/20 22:56 Dose: Not Given Documented by: Admin: 10/03/20 09:24 Dose: 40 mg Documented by: Admin: 10/02/20 21:19 Dose: 40 mg Documented by: KRZYSZTOF Levofloxacin (Levaquin) 750 mg in 150 mls @ 100 mls/hr IV Q24H [facility] Last Infusion: 10/03/20 22:01 Dose: 100 mls/hr Documented by: Admin: 10/03/20 17:59 Dose: 100 mls/hr Documented by: Infusion: 10/02/20 18:40 Dose: 0 mls/hr Documented by: Admin: 10/02/20 17:10 Dose: 100 mls/hr Documented by: KRZYSZTOF Lactated Ringer's (Lactated Ringers) 1,000 mls @ 100 mls/hr IV CONT [facility] Last Admin: 10/03/20 13:02 Dose: 100 mls/hr Documented by: Infusion: 10/03/20 12:10 Dose: 100 mls/hr Documented by: Admin: 10/03/20 02:10 Dose: 100 mls/hr Documented by: Infusion: 10/02/20 23:02 Dose: 100 mls/hr Documented by: Admin: 10/02/20 13:02 Dose: 100 mls/hr Documented by: Infusion: 10/02/20 11:00 Dose: 100 mls/hr Documented by: Admin: 10/02/20 01:00 Dose: 100 mls/hr Documented by: KERMIT Metronidazole (Flagyl) 500 mg in 100 mls @ 100 mls/hr IV Q8H [facility] Last Infusion: 10/03/20 18:00 Dose: 100 mls/hr Documented by: Admin: 10/03/20 16:21 Dose: 100 mls/hr Documented by: Infusion: 10/03/20 11:10 Dose: 0 mls/hr Documented by: Admin: 10/03/20 09:24 Dose: 100 mls/hr Documented by: Infusion: 10/03/20 01:00 Dose: 0 mls/hr Documented by: Admin: 10/03/20 00:00 Dose: 100 mls/hr Documented by: Infusion: 10/02/20 17:25 Dose: 100 mls/hr Documented by: Admin: 10/02/20 16:25 Dose: 100 mls/hr Documented by: Infusion: 10/02/20 13:49 Dose: 0 mls/hr Documented by: Admin: 10/02/20 09:14 Dose: 100 mls/hr Documented by: Infusion: 10/02/20 01:46 Dose: 100 mls/hr Documented by: Admin: 10/02/20 00:46 Dose: 100 mls/hr Documented by: KERMIT Ibuprofen (Ibuprofen 600 Mg Tablet) 600 mg PO Q6H PRN PRN Reason: Fever/Mild Pain (1-3) Ketorolac Tromethamine (Ketorolac 30 Mg/Ml Vial) 30 mg IV Q6H [facility] Stop: 10/08/20 16:14 Last Admin: 10/03/20 22:01 Dose: 30 mg Documented by: Admin: 10/03/20 16:32 Dose: 30 mg Documented by: Admin: 10/03/20 16:22 Dose: 30 mg Documented by: SUSANNE Labetalol HCl (Labetalol 100 Mg Tablet) 100 mg PO BID [facility] Last Admin: 10/03/20 21:59 Dose: 100 mg Documented by: Admin: 10/03/20 09:26 Dose: 100 mg Documented by: Admin: 10/02/20 21:20 Dose: 100 mg Documented by: Admin: 10/02/20 09:14 Dose: 100 mg Documented by: LEO Magnesium Hydroxide (Magnesium Hydroxide 30 Ml Udc) 30 ml PO DAILY PRN PRN Reason: Constipation Morphine Sulfate (Morphine 2 Mg/Ml Inj) 2 mg IV Q4HR PRN PRN Reason: Pain, Moderate (4-6) Last Admin: 10/03/20 06:34 Dose: 2 mg Documented by: Admin: 10/03/20 01:19 Dose: 2 mg Documented by: Admin: 10/02/20 21:16 Dose: 2 mg Documented by: Admin: 10/02/20 17:15 Dose: 2 mg Documented by: Admin: 10/02/20 04:23 Dose: 2 mg Documented by: Admin: 10/02/20 00:45 Dose: 2 mg Documented by: KERMIT Naloxone HCl (Naloxone 0.4 Mg/Ml Vial) 0.2 mg IV Q2MIN PRN PRN Reason: Opiate Reversal Ondansetron HCl (Ondansetron 4 Mg/2 Ml Inj) 4 mg IV Q6HR PRN PRN Reason: Nausea And Vomiting Oxycodone HCl (Oxycodone Ir 5 Mg Tablet) 10 mg PO Q4HR PRN PRN Reason: Pain, Severe (7-10) Last Admin: 10/03/20 21:59 Dose: 10 mg Documented by: Admin: 10/03/20 18:05 Dose: 10 mg Documented by: Admin: 10/03/20 13:02 Dose: 10 mg Documented by: Admin: 10/03/20 09:23 Dose: 10 mg Documented by: Admin: 10/03/20 03:49 Dose: 10 mg Documented by: Admin: 10/02/20 23:38 Dose: 10 mg Documented by: Admin: 10/02/20 19:16 Dose: 10 mg Documented by: Admin: 10/02/20 15:07 Dose: 10 mg Documented by: Admin: 10/02/20 11:14 Dose: 10 mg Documented by: Admin: 10/02/20 05:45 Dose: 10 mg Documented by: Admin: 10/02/20 01:56 Dose: 10 mg Documented by: KERMIT Sodium Chloride (Sodium Chloride 0.9% Flush) 10 ml IV PRN PRN PRN Reason: Flush Last Admin: 10/03/20 06:35 Dose: 10 ml Documented by: Admin: 10/03/20 02:17 Dose: 10 ml Documented by: KACI Sodium Chloride (Sodium Chloride 0.9% Flush) 10 ml IV BID [facility] Last Admin: 10/03/20 22:00 Dose: 10 ml Documented by: Admin: 10/03/20 09:32 Dose: 10 ml Documented by: LEO Discontinued Medications Bacitracin (Bacitracin Oint 0.9 Gm Pckt) 1 applic TOP NOW ONE Stop: 10/01/20 23:02 Last Admin: 10/01/20 22:50 Dose: 1 applic Documented by: NAHUN Bupivacaine HCl (Bupivacaine 0.5% (Pf) Vial) 30 ml INJ NOW ONE Stop: 10/01/20 20:58 Last Admin: 10/01/20 20:57 Dose: 30 ml Documented by: NAHUN Enoxaparin Sodium (Enoxaparin 40 Mg/0.4 Ml Syringe) 40 mg SUBCUT DAILY [facility] Last Admin: 10/02/20 14:40 Dose: 40 mg Documented by: LEO Fentanyl (Fentanyl 100 Mcg/2 Ml Inj) 0 mcg IV Q5M PRN PRN Reason: Pain, Moderate (4-6) Stop: 10/02/20 00:09 Hydromorphone HCl (Hydromorphone 0.5 Mg Inj) 0.5 mg IV NOW ONE Stop: 10/01/20 15:09 Last Admin: 10/01/20 15:15 Dose: 0.5 mg Documented by: FELICIANO Hydromorphone HCl (Hydromorphone 0.5 Mg Inj) 0.5 mg IV NOW ONE Stop: 10/01/20 17:46 Last Admin: 10/01/20 17:49 Dose: 0.5 mg Documented by: FELICIANO Hydromorphone HCl (Hydromorphone 2 Mg Inj) 0 mg IV Q5M PRN PRN Reason: Pain, Severe (7-10) Hydromorphone HCl (Hydromorphone 1 Mg Inj) 1 mg IV NOW ONE Stop: 10/02/20 07:36 Last Admin: 10/02/20 15:27 Dose: Not Given Documented by: LEO Sodium Chloride (Normal Saline 0.9%) 1,000 mls @ 150 mls/hr IV CONT [facility] Last Admin: 10/01/20 15:29 Dose: 150 mls/hr Documented by: Infusion: 10/01/20 15:29 Dose: 150 mls/hr Documented by: Admin: 10/01/20 14:26 Dose: 150 mls/hr Documented by: SEN Levofloxacin (Levaquin) 750 mg in 150 mls @ 100 mls/hr IV NOW ONE Stop: 10/01/20 17:18 Last Infusion: 10/01/20 17:49 Dose: 0 mls/hr Documented by: Admin: 10/01/20 16:10 Dose: 100 mls/hr Documented by: FELICIANO Metronidazole (Flagyl) 500 mg in 100 mls @ 100 mls/hr IV NOW ONE Stop: 10/01/20 17:28 Last Infusion: 10/01/20 20:36 Dose: 0 mls/hr Documented by: Admin: 10/01/20 19:36 Dose: 100 mls/hr Documented by: KRZYSZTOF Lactated Ringer's (Lactated Ringers) 1,000 mls @ 150 mls/hr IV CONT [facility] Last Infusion: 10/01/20 23:37 Dose: 0 mls/hr Documented by: Admin: 10/01/20 21:27 Dose: 150 mls/hr Documented by: Infusion: 10/01/20 21:27 Dose: 150 mls/hr Documented by: Admin: 10/01/20 19:35 Dose: 150 mls/hr Documented by: KRZYSZTOF Ibuprofen (Ibuprofen 600 Mg Tablet) 600 mg PO Q6H PRN PRN Reason: Fever/Mild Pain (1-3) Last Admin: 10/02/20 14:38 Dose: 600 mg Documented by: Admin: 10/02/20 09:14 Dose: 600 mg Documented by: LEO Ketorolac Tromethamine (Ketorolac 30 Mg/Ml Vial) 30 mg IV NOW ONE Stop: 10/01/20 16:30 Last Admin: 10/01/20 16:41 Dose: 30 mg Documented by: FELICIANO Ketorolac Tromethamine (Ketorolac 30 Mg/Ml Vial) 30 mg IV Q6H [facility] Stop: 10/03/20 14:01 Last Admin: 10/03/20 16:32 Dose: Not Given Documented by: Admin: 10/03/20 09:22 Dose: 30 mg Documented by: Admin: 10/03/20 02:17 Dose: 30 mg Documented by: Admin: 10/02/20 21:19 Dose: 30 mg Documented by: KRZYSZTOF Lorazepam (Lorazepam 2 Mg/Ml Inj) 0.25 mg IV NOW PRN PRN Reason: Anxiety Morphine Sulfate (Morphine 4 Mg/Ml Inj) 4 mg IV NOW ONE Stop: 10/01/20 14:07 Last Admin: 10/01/20 14:19 Dose: 4 mg Documented by: FELICIANO Morphine Sulfate (Morphine 4 Mg/Ml Inj) 4 mg IV NOW ONE Stop: 10/01/20 14:29 Last Admin: 10/01/20 14:33 Dose: 4 mg Documented by: FELICIANO Morphine Sulfate (Morphine 4 Mg/Ml Inj) 4 mg IV NOW ONE Stop: 10/01/20 14:44 Last Admin: 10/01/20 15:00 Dose: 4 mg Documented by: FELICIANO Ondansetron HCl (Ondansetron 4 Mg/2 Ml Inj) 4 mg IV NOW PRN PRN Reason: Nausea And Vomiting Oxycodone/Acetaminophen (Oxycodone/Acetaminophen 5/325 Tablet) 1 tab PO PACUNOW PRN PRN Reason: Mild or Moderate Pain Reevaluation(s) Reevaluation #1: Patient pain has improved after several doses of pain medication although she does still appear quite uncomfortable. 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 Patient's labs reviewed, she is not hypertensive, fibrinogen is elevated but LFTs are not elevated. Patient findings do not seem consistent with HELLP syndrome. Patient has PE scan ordered for possible pulmonary emboli, ultrasound is also ordered after discussion feels appropriate to go ahead and obtain CT abdomen pelvis as well to search for other infectious causes. Consultation #2: Dr. Neil, case was discussed patient has gallstones on imaging. No other acute infectious cause change except possible UTI. Patient's exam is concerning for infectious cause and her pain seems to be out of pr oportion for gallstones. Did discuss OBGYN has been consulted, they are happy to consult on the case. If Dr. Neil is prefers not to admit they would admit the patient with him to consult. IV antibiotics have been started. In the silly received Levaquin for coverage of urine and abdomen and Flagyl was included as well. It was noted the patient was in urinary retention, Clarke catheter was placed and 600 cc were out immediately but this did not make a significant improvement patient's pain. Consultation #3: Dr. Pandey was recontacted regarding findings of possible gallstones. At this time plan to admit to general surgery but if surgery pre fers they are happy to admit the patient with surgical consult. Reviewed patient's current medications agree with current plan. Post for blood pressure are less than 150/90. Vital Signs Vital signs: Vital Signs - 8 hr 10/01/20 13:52 10/01/20 14:29 10/01/20 14:30 Pulse Rate 107 H 101 H 101 H Respiratory Rate 22 25 H Blood Pressure 115/56 L 117/63 Pulse Oximetry 95 97 97 MDM - Abdominal Pain Lab Data Result diagrams: 10/03/20 08:00 10/03/20 08:00 Labs: Lab Results 10/01/20 10/01/20 10/01/20 Range/Units 13:35 13:55 13:55 WBC (4.5-11.0) X10^3/uL RBC (4.0-5.2) X10^6/uL Hgb (12.0-16.0) g/dL Hct (36-46) % MCV (80-100) fL MCH (26-34) PG MCHC (30-36) % RDW (11.6-14.8) % Plt Count (150-400) X10^3/uL Neut % (Auto) (50-75) % Lymph % (Auto) (25-40) % Isabella % (Auto) (3-14) % Eos % (Auto) (2-4) % Baso % (Auto) (0-2) % Neut # (Auto) (2145-6137) /uL Lymph # (Auto) (1206-2685) /uL Isabella # (Auto) (0-900) /uL Eos # (Auto) (0-450) /uL Baso # (Auto) (0-100) /uL PT 13.5 H (10.1-12.7) SECONDS INR 1.2 (0.9-1.3) APTT 22 L (26.4-36.2) SECONDS Fibrinogen 570 H (211-428) mg/dL Sodium 137 (137-145) mmol/L Potassium 4.2 (3.4-5.1) mmol/L Chloride 106 (98-107) mmol/L Carbon Dioxide 23 (22-32) mmol/L BUN 16 (7-17) mg/dL Creatinine 0.56 (0.52-1.04) mg/dL Estimated GFR > 60.0 (>60) mL/min BUN/Creatinine Ratio 28.6 H (6-22) Glucose 102 H (70-100) mg/dL Lactate (0.7-2.1) mmol/L Uric Acid 7.2 H (2.5-6.2) mg/dL Calcium 8.8 (8.4-10.2) mg/dL Total Bilirubin 0.7 (0.2-1.3) mg/dL Conjugated Bilirubin 0.0 (0.0-0.3) md/dL Unconjugated Bilirubin 0.5 (0.0-1.1) mg/dL AST 26 (14-36) IU/L ALT 28 (<35) IU/L Alkaline Phosphatase 87 (38-126) U/L Lactate Dehydrogenase 539 (313-618) U/L Total Creatine Kinase 145 H (30-135) U/L CK-MB (CK-2) 1.34 (<2.37) ng/mL CK-MB (CK-2) Rel Index 0.9 L (1.5-5.0) % Troponin I < 0.012 (0.01-0.034) ng/mL NT-Pro-B Natriuret Pep 275 H (<125) pg/mL Total Protein 6.3 (6.3-8.2) g/dL Albumin 3.1 L (3.5-5.0) g/dL Globulin 3.2 (1.7-4.1) g/dL Albumin/Globulin Ratio 1.0 (1.0-2.8) Lipase 12 L (23-300) U/L Procalcitonin (<0.5) ng/mL Urine RBC (0-5/HPF) Urine WBC (0-5/HPF) Ur Squamous Epith Cells (0-5/HPF) Urine Bacteria (None) Ur Culture Indicated? A. baumannii (PCR) (Not Detect) Imrna albicans (PCR) (Not Detect) C. glabrata (PCR) (Not Detect) C. krusei (PCR) (Not Detect) C. parapsilosis (PCR) (Not Detect) C. tropicalis (PCR) (Not Detect) SARS-CoV-2 (PCR) (Negative) Enterobacteriac sp PCR (Not Detect) E. cloacae complex PCR (Not Detect) Enterococcus sp PCR (Not Detect) E. coli (PCR) (Not Detect) H. influenzae (PCR) (Not Detect) Klebsiella oxytoca PCR (Not Detect) Klebsiella pneumoniae (Not Detect) List. monocytogenes PCR (Not Detect) N. meningitidis (PCR) (Not Detect) Proteus species (PCR) (Not Detect) Serratia marcescens PCR (Not Detect) Staphylococcus sp PCR (Not Detect) Staph aureus (PCR) (Not Detect) mecA-Methicil Res Gene (Not Detect) Streptococcus sp PCR (Not Detect) Group A Strep (PCR) (Not Detect) Strep agalactiae (PCR) (Not Detect) Strep pneumoniae (PCR) (Not Detect) P. aeruginosa (PCR) (Not Detect) Benji/B-Vanco Res Genes KPC-Carbap Res Gene PCR Blood Type Antibody Screen 10/01/20 10/01/20 10/01/20 Range/Units 13:55 13:55 13:55 WBC 11.0 (4.5-11.0) X10^3/uL RBC 3.31 L (4.0-5.2) X10^6/uL Hgb 9.7 L (12.0-16.0) g/dL Hct 29.3 L (36-46) % MCV 88.3 (80-100) fL MCH 29.4 (26-34) PG MCHC 33.3 (30-36) % RDW 14.8 (11.6-14.8) % Plt Count 274 (150-400) X10^3/uL Neut % (Auto) 91.5 H (50-75) % Lymph % (Auto) 4.6 L (25-40) % Isabella % (Auto) 3.3 (3-14) % Eos % (Auto) 0.4 L (2-4) % Baso % (Auto) 0.2 (0-2) % Neut # (Auto) 43160 H (4370-5037) /uL Lymph # (Auto) 500 L (1068-3138) /uL Isabella # (Auto) 400 (0-900) /uL Eos # (Auto) 0 (0-450) /uL Baso # (Auto) 0 (0-100) /uL PT (10.1-12.7) SECONDS INR (0.9-1.3) APTT (26.4-36.2) SECONDS Fibrinogen (211-428) mg/dL Sodium (137-145) mmol/L Potassium (3.4-5.1) mmol/L Chloride (98-107) mmol/L Carbon Dioxide (22-32) mmol/L BUN (7-17) mg/dL Creatinine (0.52-1.04) mg/dL Estimated GFR (>60) mL/min BUN/Creatinine Ratio (6-22) Glucose (70-100) mg/dL Lactate 0.8 (0.7-2.1) mmol/L Uric Acid (2.5-6.2) mg/dL Calcium (8.4-10.2) mg/dL Total Bilirubin (0.2-1.3) mg/dL Conjugated Bilirubin (0.0-0.3) md/dL Unconjugated Bilirubin (0.0-1.1) mg/dL AST (14-36) IU/L ALT (<35) IU/L Alkaline Phosphatase (38-126) U/L Lactate Dehydrogenase (313-618) U/L Total Creatine Kinase (30-135) U/L CK-MB (CK-2) (<2.37) ng/mL CK-MB (CK-2) Rel Index (1.5-5.0) % Troponin I (0.01-0.034) ng/mL NT-Pro-B Natriuret Pep (<125) pg/mL Total Protein (6.3-8.2) g/dL Albumin (3.5-5.0) g/dL Globulin (1.7-4.1) g/dL Albumin/Globulin Ratio (1.0-2.8) Lipase (23-300) U/L Procalcitonin (<0.5) ng/mL Urine RBC (0-5/HPF) Urine WBC (0-5/HPF) Ur Squamous Epith Cells (0-5/HPF) Urine Bacteria (None) Ur Culture Indicated? A. baumannii (PCR) (Not Detect) Mirna albicans (PCR) (Not Detect) C. glabrata (PCR) (Not Detect) C. krusei (PCR) (Not Detect) C. parapsilosis (PCR) (Not Detect) C. tropicalis (PCR) (Not Detect) SARS-CoV-2 (PCR) (Negative) Enterobacteriac sp PCR (Not Detect) E. cloacae complex PCR (Not Detect) Enterococcus sp PCR (Not Detect) E. coli (PCR) (Not Detect) H. influenzae (PCR) (Not Detect) Klebsiella oxytoca PCR (Not Detect) Klebsiella pneumoniae (Not Detect) List. monocytogenes PCR (Not Detect) N. meningitidis (PCR) (Not Detect) Proteus species (PCR) (Not Detect) Serratia marcescens PCR (Not Detect) Staphylococcus sp PCR (Not Detect) Staph aureus (PCR) (Not Detect) mecA-Methicil Res Gene (Not Detect) Streptococcus sp PCR (Not Detect) Group A Strep (PCR) (Not Detect) Strep agalactiae (PCR) (Not Detect) Strep pneumoniae (PCR) (Not Detect) P. aeruginosa (PCR) (Not Detect) Benji/B-Vanco Res Genes KPC-Carbap Res Gene PCR Blood Type A Positive Antibody Screen Negative 10/01/20 10/01/20 10/01/20 Range/Units 13:55 15:00 15:20 WBC (4.5-11.0) X10^3/uL RBC (4.0-5.2) X10^6/uL Hgb (12.0-16.0) g/dL Hct (36-46) % MCV (80-100) fL MCH (26-34) PG MCHC (30-36) % RDW (11.6-14.8) % Plt Count (150-400) X10^3/uL Neut % (Auto) (50-75) % Lymph % (Auto) (25-40) % Isabella % (Auto) (3-14) % Eos % (Auto) (2-4) % Baso % (Auto) (0-2) % Neut # (Auto) (4108-1200) /uL Lymph # (Auto) (7480-8315) /uL Isabella # (Auto) (0-900) /uL Eos # (Auto) (0-450) /uL Baso # (Auto) (0-100) /uL PT (10.1-12.7) SECONDS INR (0.9-1.3) APTT (26.4-36.2) SECONDS Fibrinogen (211-428) mg/dL Sodium (137-145) mmol/L Potassium (3.4-5.1) mmol/L Chloride (98-107) mmol/L Carbon Dioxide (22-32) mmol/L BUN (7-17) mg/dL Creatinine (0.52-1.04) mg/dL Estimated GFR (>60) mL/min BUN/Creatinine Ratio (6-22) Glucose (70-100) mg/dL Lactate (0.7-2.1) mmol/L Uric Acid (2.5-6.2) mg/dL Calcium (8.4-10.2) mg/dL Total Bilirubin (0.2-1.3) mg/dL Conjugated Bilirubin (0.0-0.3) md/dL Unconjugated Bilirubin (0.0-1.1) mg/dL AST (14-36) IU/L ALT (<35) IU/L Alkaline Phosphatase (38-126) U/L Lactate Dehydrogenase (313-618) U/L Total Creatine Kinase (30-135) U/L CK-MB (CK-2) (<2.37) ng/mL CK-MB (CK-2) Rel Index (1.5-5.0) % Troponin I (0.01-0.034) ng/mL NT-Pro-B Natriuret Pep (<125) pg/mL Total Protein (6.3-8.2) g/dL Albumin (3.5-5.0) g/dL Globulin (1.7-4.1) g/dL Albumin/Globulin Ratio (1.0-2.8) Lipase (23-300) U/L Procalcitonin 0.78 H (<0.5) ng/mL Urine RBC 5-10/hpf H (0-5/HPF) Urine WBC 30-100/hpf H (0-5/HPF) Ur Squamous Epith Cells >30 /hpf H (0-5/HPF) Urine Bacteria Moderate (10-30) H (None) Ur Culture Indicated? Cult not indicated A. baumannii (PCR) Not detected (Not Detect) Mirna albicans (PCR) Not detected (Not Detect) C. glabrata (PCR) Not detected (Not Detect) C. krusei (PCR) Not detected (Not Detect) C. parapsilosis (PCR) Not detected (Not Detect) C. tropicalis (PCR) Not detected (Not Detect) SARS-CoV-2 (PCR) (Negative) Enterobacteriac sp PCR Not detected (Not Detect) E. cloacae complex PCR Not detected (Not Detect) Enterococcus sp PCR Not detected (Not Detect) E. coli (PCR) Not detected (Not Detect) H. influenzae (PCR) Not detected (Not Detect) Klebsiella oxytoca PCR Not detected (Not Detect) Klebsiella pneumoniae Not detected (Not Detect) List. monocytogenes PCR Not detected (Not Detect) N. meningitidis (PCR) Not detected (Not Detect) Proteus species (PCR) Not detected (Not Detect) Serratia marcescens PCR Not detected (Not Detect) Staphylococcus sp PCR Detected H (Not Detect) Staph aureus (PCR) Not detected (Not Detect) mecA-Methicil Res Gene Not detected (Not Detect) Streptococcus sp PCR Not detected (Not Detect) Group A Strep (PCR) Not detected (Not Detect) Strep agalactiae (PCR) Not detected (Not Detect) Strep pneumoniae (PCR) Not detected (Not Detect) P. aeruginosa (PCR) Not detected (Not Detect) Benji/B-Vanco Res Genes Not Reportable KPC-Carbap Res Gene PCR Not Reportable Blood Type Antibody Screen 10/01/20 Range/Units 17:33 WBC (4.5-11.0) X10^3/uL RBC (4.0-5.2) X10^6/uL Hgb (12.0-16.0) g/dL Hct (36-46) % MCV (80-100) fL MCH (26-34) PG MCHC (30-36) % RDW (11.6-14.8) % Plt Count (150-400) X10^3/uL Neut % (Auto) (50-75) % Lymph % (Auto) (25-40) % Isabella % (Auto) (3-14) % Eos % (Auto) (2-4) % Baso % (Auto) (0-2) % Neut # (Auto) (0084-4045) /uL Lymph # (Auto) (7352-5764) /uL Isabella # (Auto) (0-900) /uL Eos # (Auto) (0-450) /uL Baso # (Auto) (0-100) /uL PT (10.1-12.7) SECONDS INR (0.9-1.3) APTT (26.4-36.2) SECONDS Fibrinogen (211-428) mg/dL Sodium (137-145) mmol/L Potassium (3.4-5.1) mmol/L Chloride (98-107) mmol/L Carbon Dioxide (22-32) mmol/L BUN (7-17) mg/dL Creatinine (0.52-1.04) mg/dL Estimated GFR (>60) mL/min BUN/Creatinine Ratio (6-22) Glucose (70-100) mg/dL Lactate (0.7-2.1) mmol/L Uric Acid (2.5-6.2) mg/dL Calcium (8.4-10.2) mg/dL Total Bilirubin (0.2-1.3) mg/dL Conjugated Bilirubin (0.0-0.3) md/dL Unconjugated Bilirubin (0.0-1.1) mg/dL AST (14-36) IU/L ALT (<35) IU/L Alkaline Phosphatase (38-126) U/L Lactate Dehydrogenase (313-618) U/L Total Creatine Kinase (30-135) U/L CK-MB (CK-2) (<2.37) ng/mL CK-MB (CK-2) Rel Index (1.5-5.0) % Troponin I (0.01-0.034) ng/mL NT-Pro-B Natriuret Pep (<125) pg/mL Total Protein (6.3-8.2) g/dL Albumin (3.5-5.0) g/dL Globulin (1.7-4.1) g/dL Albumin/Globulin Ratio (1.0-2.8) Lipase (23-300) U/L Procalcitonin (<0.5) ng/mL Urine RBC (0-5/HPF) Urine WBC (0-5/HPF) Ur Squamous Epith Cells (0-5/HPF) Urine Bacteria (None) Ur Culture Indicated? A. baumannii (PCR) (Not Detect) Mirna albicans (PCR) (Not Detect) C. glabrata (PCR) (Not Detect) C. krusei (PCR) (Not Detect) C. parapsilosis (PCR) (Not Detect) C. tropicalis (PCR) (Not Detect) SARS-CoV-2 (PCR) Negative (Negative) Enterobacteriac sp PCR (Not Detect) E. cloacae complex PCR (Not Detect) Enterococcus sp PCR (Not Detect) E. coli (PCR) (Not Detect) H. influenzae (PCR) (Not Detect) Klebsiella oxytoca PCR (Not Detect) Klebsiella pneumoniae (Not Detect) List. monocytogenes PCR (Not Detect) N. meningitidis (PCR) (Not Detect) Proteus species (PCR) (Not Detect) Serratia marcescens PCR (Not Detect) Staphylococcus sp PCR (Not Detect) Staph aureus (PCR) (Not Detect) mecA-Methicil Res Gene (Not Detect) Streptococcus sp PCR (Not Detect) Group A Strep (PCR) (Not Detect) Strep agalactiae (PCR) (Not Detect) Strep pneumoniae (PCR) (Not Detect) P. aeruginosa (PCR) (Not Detect) Benji/B-Vanco Res Genes KPC-Carbap Res Gene PCR Blood Type Antibody Screen Point of care testing: Urine Dip Bedside Urine Glucose Negative Bedside Urine Bilirubin - Negative Bedside Urine Ketone - Negative Urine Specific [place] 1.010 Bedside Urine Occult Blood +++ Bedside Urine pH 7 Bedside Urine Protein - Negative Bedside Urine Urobilinogen - Negative Bedside Urine Nitrite - Negative Bedside Urine Leukocytes + [address] scan - chest: Radiologist's Impression: Tayla Verdin 34 F [address] [id number] Scan ReportSigned Patient: Tayla Verdin MMR#: [id number]: 1985Acct:[id number]/Sex: 34 / FDate of Service: 10/01/20Loc: EDAccession Number: [id number] Procedure: CT angio chest PE protocol Ordering Provider: Yareli Patterson D.O. PROCEDURE: CT ANGIO CHEST PE PROTOCOL INDICATIONS: , post csection TECHNIQUE: After the administration of intravenous contrast, 2 mm thick sections acquired from the pulmonary apices to the posterior costophrenic angles. 3-dimensional maximum intensity projection (MIP) coronal and sagittal reformats were then acquired through the thorax. For radiation dose reduction, the following was used: automated exposure control, adjustment of mA and/or kV according to patient size. COMPARISON: None. FINDINGS: Image quality: Excellent. Pulmonary arteries: Pulmonary arteries are normal in size, and demonstrate no intraluminal filling defects to suggest central pulmonary embolism. Lungs and pleura: Lungs are clear. No pleural effusions or pneumothorax. Central and peripheral airways are patent. Mediastinum: Heart size is normal, without pericardial effusion. No mediastinal or hilar adenopathy. Thoracic aorta is normal in caliber and enhancement. Esophagus is normal in caliber, without hiatal hernia. Bones and chest wall: No suspicious bony lesions. Ribs and thoracic spine appear intact throughout. Thyroid gland contains a sub cm left thyroid nodule. No axillary or supraclavicular adenopathy. Abdomen: Visualized upper abdominal solid organs appear normal in the early arterial phase of enhancement. IMPRESSION: 1. No evidence of acute pulmonary emboli. 2. No evidence of acute pulmonary process. 3. Incidental subcentimeter left thyroid nodule. Dictated by: Jaswant Ronquillo M.D. on 10/01/2020 at 14:26 Approved by: Jaswant Ronquillo M.D. on 10/01/2020 at 14:29 CT scan - abdomen/pelvis: Radiologist's Impression: [address] [id number] Scan ReportSigned Patient: Tayla Verdin MMR#: [id number]: 1985Acct:[id number]/Sex: 34 / FDate of Service: 10/01/20Loc: EDAccession Number: [id number] Procedure: CT abdomen pelvis w con Ordering Provider: Yareli Patterson D.O. PROCEDURE: CT ABDOMEN PELVIS W CON INDICATIONS: abdominal pain, s/p Csection TECHNIQUE: After the administration of intravenous contrast, axial sections acquired from the lung bases to the pubic symphysis. Coronal and sagittal reformats were performed. For radiation dose reduction, the following was used: automated exposure control, adjustment of mA and/or kV according to patient size. COMPARISON: None. FINDINGS: Image quality: Excellent. Lung bases: Unremarkable. Heart: No significant findings. ABDOMEN: Liver: Unremarkable. Gallbladder: Is mildly distended. Question gallstones. Question mild gallbladder wall thickening. Biliary ducts: Unremarkable. Pancreas: Unremarkable. Spleen: Unremarkable. Adrenal Glands: Unremarkable. Kidneys and Ureters: Unremarkable. Stomach and Bowel: Stomach, small bowel loops, and colon are unremarkable. Moderate diffuse fecal debris. Peritoneum: Minimal free pelvic fluid, likely secondary to recent surgery. Minimal air adjacent to the uterus, likely secondary to Caesarean section. Ventral Wall: No hernias. Abdominal Nodes: No retroperitoneal or mesenteric adenopathy by size criteria. Vessels: Aorta and inferior vena cava are normal in size. PELVIS: Pelvic Organs: uterus. Minimal air within the wall of the uterus and minimal air adjacent to the uterus are likely secondary to recent section. Bladder: Unremarkable. Pelvic Nodes: No enlarged lymph nodes. Miscellaneous: No hernias are seen. Bones: Unremarkable. IMPRESSION: 1. uterus. 2. Minimal free air and minimal free pelvic fluid are likely secondary to recent section. Same is true for minimal air in the uterine myometrium. 3. Gallbladder is somewhat distended with a question of gallstones and possible minimal gallbladder wall thickening. Consider right upper quadrant ultrasound for further evaluation. Dictated by: Jaswant Ronquillo M.D. on 10/01/2020 at 14:30 Approved by: Jaswant Ronquillo M.D. on 10/01/2020 at 14:33 US - abdomen: Radiologist's Impression: [address] [id number] ReportSigned Patient: Tayla Verdin MMR#: [id number]: 1985Acct:[id number]/Sex: 34 / FDate of Service: 10/01/20Loc: EDAccession Number: [id number] Procedure: US abdomen complete Ordering Provider: Yareli Patterson D.O. PROCEDURE: US ABDOMEN COMPLETE INDICATIONS: , RUQ PAIN, SWELLING, / HELLP TECHNIQUE: Real-time scanning was performed of the abdominal and retroperitoneal organs, with image documentation. COMPARISON: None. FINDINGS: Liver: Liver is normal in size and homogeneous in echotexture. Gallbladder: There is a moderately large gallstone mobile within the gallbladder lumen that measures up to 2.6 cm in dimension. The gallbladder and adjacent bile ducts otherwise appeared normal. Biliary ducts: Intrahepatic bile ducts are non-dilated. Extrahepatic bile duct caliber measures 6.2 mm. Normal is 6-7 mm or less in diameter, or 10 mm or less post-cholecystectomy. Pancreas: Visualized portions of the pancreas are sonographically normal. Spleen: Spleen is enlarged in size at 16 cm craniocaudad, and homogeneous in echotexture. Kidneys: Kidneys are normal in size and echotexture. Right kidney measures 14.7 cm long; left kidney measures 13.1 cm long. No hydronephrosis or nephrolithiasis. No solid masses. Aorta: Visualized aorta is normal in caliber at less than 3 cm. Iliacs: Proximal common iliac arteries are normal in caliber at less than 2.5 cm. IVC: Intrahepatic inferior vena cava is patent. Miscellaneous: No free abdominal fluid. IMPRESSION: Moderately large gallstone within the gallbladder lumen but no sign of acute cholecystitis or biliary obstruction. There is no sign of ascites. Splenomegaly, measuring up to 16.1 cm craniocaudad. The liver echotexture is homogeneous and normal throughout. Dictated by: Josh Morejon M.D. on 10/01/2020 at 15:51 Approved by: Josh Morejon M.D. on 10/01/2020 at 15:55 ECG Data Interpretation: Sinus tachycardia rate of 102, P are 160 QRS is 72 and QTC 443. No acute EKG changes appreciated. MDM Narrative Medical decision making narrative: This is a 34-year-old female who is 9 days , who arrives appearing QT ill. Patient is tachycardic tachypneic. Reportedly hypoxic in her out but here in the department she has had appropriate O2. She had acute onset right upper quadrant pain radiating to her shoulder. Differential included HELLP syndrome, PE, cholecystitis/cholelithiasis, intra- abdominal infection as well as a variety of other possibilities. Patient CT angio did not reveal pulmonary emboli, patient was noted to have a gallstone, she did not have other changes consistent with cholecystitis or other biliary obstruction. She did have splenomegaly. Abdominal labs do not show sign of biliary obstruction. Patient labs and vitals do not seem consistent with HELLP. OBGYN and General surgery were both consulted and patient was admitted under General surgery with plan for OR. Patient had been started on IV antibiotics it was noted she had changes to your urine which could have been urosepsis, she was retaining 600 cc of urine and had Clarke catheter placed with improvement. But patient's pain was still quite significant particularly in right upper quadrant. Despite concern for sepsis with patient's recent requirement of 7 L of diuresis 30 cc/kilos bolus was not obtained she was significantly swollen and concerned that there was also possibility of cardiomyopathy with CHF. Critical Care Time Critical Care Time Critical Care Time: Yes Total Critical Care Time: 65 Attestation: The high probability of a clinically significant, sudden or life threatening deterioration of the [cardiac,pulm] system(s) required my full and direct a ttention, intervention and personal management. The aggregate critical care time was [] minutes. This time is in addition to time spent performing reported procedures but includes the following: [x] Data Review and interpretation [x] Patient assessment and monitoring of vital signs [x] Documentation [x] Medication orders and management Discharge Plan Departure Patient Disposition: Admitted as Observation Clinical Impression: Gallstones Admit Date/Time: 10/01/20 17:47 Admit Provider: Yg Neil
[2020-10-01 14:42] LABS: CKMB % Relative Index 0.9 % (1.5-5.0); Creatine Kinase MB 1.34 ng/mL (<2.37)
[2020-10-01] MEDS: HYDROMORPHONE 0.5 MG INJ IV ×2 (15:15→17:49)
[2020-10-01 15:20] LABS: Lactate (Lactic Acid) 0.8 mmol/L (0.7-2.1)
[2020-10-01 15:25] LABS: Procalcitonin 0.78 ng/mL (<0.5)
[2020-10-01 15:48] LABS: Bacteria Urine Moderate (10-30); Culture Indicated Urine Cult Not Indicated; RBC Urine 5-10/HPF (0-5/HPF); Squamous Epithelial Cell Urine >30 /HPF (0-5/HPF); WBC Urine 30-100/HPF (0-5/HPF)
[2020-10-01] MEDS: levoFLOXacin 750 MG/150 ML PIGGYBACK 100 MG IV (16:10)
[2020-10-01] MEDS: KETOROLAC 30 MG/ML VIAL IV (16:41)
[2020-10-01 16:42] LABS: Lipase 12 U/L (23-300)
--- NOTE | 2020-10-01 18:47 | P.CONS_ITS ---
History of Present Illness Consult details Date Patient Seen: 10/01/20 Time Patient Seen: 18:00 Chief complaint: Right upper quadrant pain 9 days Reason for consult: Rule out Ob cause patient's pain Requesting provider: Yareli Patterson Narrative: Patient was seen by Dr. Jeffries at [facility] 9 days po stpartum to remove her Aquacel dressing and monitor her course. Patient had sudden onset of right upper quadrant pain radiating to her shoulder. She complains of shortness of breath but because it was very painful to take a deep breath. She had nausea vomiting. Dr. Jeffries evaluated her and it appeared that her scar was healing well, no evidence uterine infection. The patient had a significant increase in pulse and decrease in oxygen saturation so she was airlifted to the hospital for evaluation to see if she had HELLP syndrome, pulmonary embolus, or other abnormality such as cholecystitis. Meds Home Medications and Allergies Home Medications Medication Instructions Recorded Confirmed Type ferrous sulfate 325 mg (65 mg 325 mg PO DAILY 04/15/20 10/01/20 History iron) tablet (Feosol) prenat.vits,amna,oiu-rcpe-dnqva 1 tab PO DAILY 04/15/20 10/01/20 History labetalol 100 mg tablet 100 mg PO BID #60 tab 09/10/20 10/01/20 Rx ondansetron 4 mg disintegrating 4 mg PO Q6H PRN #7 tab 09/24/20 10/01/20 Rx tablet oxycodone 10 mg tablet 10 mg PO Q4H PRN #20 tab 09/24/20 10/01/20 Rx oxycodone 10 mg tablet 10 mg PO Q6H PRN #20 tab 09/26/20 10/01/20 Rx Allergies Allergy/AdvReac Type Severity Reaction Status Date / Time amoxicillin Allergy Severe Major Hives Verified 10/01/20 13:59 Penicillins Allergy Severe Severe Verified 10/01/20 13:59 Hives Review of Systems Review of Systems Narrative: Patient awoke at 4:00 a.m. to feed the baby and had severe upper abdominal pain with incisional pain. The pain radiated to her right shoulder. She feels it is difficult to take a deep breath because the pain increases when she breathes in. She had some nausea and vomiting. She denies any headaches, scotomata. She began having edema prior to the baby being born which worsened . She now continues to have increasing edema in her lower extremities. Patient denies fevers. She states her vaginal bleeding is not h eavy and normal smell. She has switched to pumping and supplementing the baby rather than breast-feeding due to reaction of the baby to her medications for significant constipation. Patient has only had 2 bowel movements in the past 2 days since her delivery 9 days ago. Exam Vital Signs (past 8 hours): - 10/01/20 13:52 10/01/20 14:29 10/01/20 14:30 Pulse Rate 107 H 101 H 101 H Respiratory Rate 22 25 H Blood Pressure 115/56 L 117/63 Pulse Oximetry 95 97 97 Oxygen Delivery Method Room Air Narrative Exam Narrative: The patient is looking fairly comfortable at this time however she does appear to be taking very shallow breaths. The patient has right upper quadrant pain. The patient's uterus is nontender and beginning to involute well. She does have some slight erythema of her pannus. Her incision is clean, dry, intact without evidence of infection The patient has pitting edema to her knees. Objective Imaging CT scan - chest: Radiologist's impression: No evidence for pulmonary embolus or acute pulmonary problems CT scan - abdomen: Radiologist's impression: Normal appearing post section uterus the gallbladder is distended with a likely gallstone however no thickened mckeon Labs Result Diagrams: 10/01/20 13:55 10/01/20 13:55 Labs: Laboratory Results - last 24 hr 10/01/20 10/01/20 10/01/20 13:35 13:55 13:55 WBC RBC Hgb Hct MCV MCH MCHC RDW Plt Count Neut % (Auto) Lymph % (Auto) [place] % (Auto) Eos % (Auto) Baso % (Auto) Neut # (Auto) Lymph # (Auto) [place] # (Auto) Eos # (Auto) Baso # (Auto) PT 13.5 H INR 1.2 APTT 22 L Fibrinogen 570 H Sodium 137 Potassium 4.2 Chloride 106 Carbon Dioxide 23 BUN 16 Creatinine 0.56 Estimated GFR > 60.0 BUN/Creatinine Ratio 28.6 H Glucose 102 H Lactate Uric Acid 7.2 H Calcium 8.8 Total Bilirubin 0.7 Conjugated Bilirubin 0.0 Unconjugated Bilirubin 0.5 AST 26 ALT 28 Alkaline Phosphatase 87 Lactate Dehydrogenase 539 Total Creatine Kinase 145 H CK-MB (CK-2) 1.34 CK-MB (CK-2) Rel Index 0.9 L Troponin I < 0.012 NT-Pro-B Natriuret Pep 275 H Total Protein 6.3 Albumin 3.1 L Globulin 3.2 Albumin/Globulin Ratio 1.0 Lipase 12 L Procalcitonin Urine RBC Urine WBC Ur Squamous Epith Cells Urine Bacteria Ur Culture Indicated? Blood Type Antibody Screen 10/01/20 10/01/20 10/01/20 13:55 13:55 13:55 WBC 11.0 RBC 3.31 L Hgb 9.7 L Hct 29.3 L MCV 88.3 MCH 29.4 MCHC 33.3 RDW 14.8 Plt Count 274 Neut % (Auto) 91.5 H Lymph % (Auto) 4.6 L [place] % (Auto) 3.3 Eos % (Auto) 0.4 L Baso % (Auto) 0.2 Neut # (Auto) 08978 H Lymph # (Auto) 500 L [place] # (Auto) 400 Eos # (Auto) 0 Baso # (Auto) 0 PT INR APTT Fibrinogen Sodium Potassium Chloride Carbon Dioxide BUN Creatinine Estimated GFR BUN/Creatinine Ratio Glucose Lactate 0.8 Uric Acid Calcium Total Bilirubin Conjugated Bilirubin Unconjugated Bilirubin AST ALT Alkaline Phosphatase Lactate Dehydrogenase Total Creatine Kinase CK-MB (CK-2) CK-MB (CK-2) Rel Index Troponin I NT-Pro-B Natriuret Pep Total Protein Albumin Globulin Albumin/Globulin Ratio Lipase Procalcitonin Urine RBC Urine WBC Ur Squamous Epith Cells Urine Bacteria Ur Culture Indicated? Blood Type A Positive Antibody Screen Negative 10/01/20 10/01/20 13:55 15:20 WBC RBC Hgb Hct MCV MCH MCHC RDW Plt Count Neut % (Auto) Lymph % (Auto) [place] % (Auto) Eos % (Auto) Baso % (Auto) Neut # (Auto) Lymph # (Auto) [place] # (Auto) Eos # (Auto) Baso # (Auto) PT INR APTT Fibrinogen Sodium Potassium Chloride Carbon Dioxide BUN Creatinine Estimated GFR BUN/Creatinine Ratio Glucose Lactate Uric Acid Calcium Total Bilirubin Conjugated Bilirubin Unconjugated Bilirubin AST ALT Alkaline Phosphatase Lactate Dehydrogenase Total Creatine Kinase CK-MB (CK-2) CK-MB (CK-2) Rel Index Troponin I NT-Pro-B Natriuret Pep Total Protein Albumin Globulin Albumin/Globulin Ratio Lipase Procalcitonin 0.78 H Urine RBC 5-10/hpf H Urine WBC 30-100/hpf H Ur Squamous Epith Cells >30 /hpf H Urine Bacteria Moderate (10-30) H Ur Culture Indicated? Cult not indicated Blood Type Antibody Screen Assessment & Plan Assessment and plan (1) Right upper quadrant pain: Status: Acute Assessment & Plan narrative: Patient with right upper quadrant pain 9 days post repeat section for labor. Patient with new onset of gestational hypertension 2 weeks prior to delivery now taking labetalol 100 mg b.i.d.. There is no evidence by labs of preeclampsia. Her blood pressures are well controlled. There does not appear to be indication that the patient has a postoperative pulmonary embolus. Patient is afebrile with a normal white count and her hematocrit is stable from her post hematocrit. CT of her pelvis does not show any evidence of infection. Only finding is consistent with a gallstone. Likely General surgery will take her to the operating room for cholecystitis. Ob will continue to follow the patient.
[2020-10-01 19:01] LABS: COVID19 - ADMIT (NP swab/PCR) Negative (Negative)
--- NOTE | 2020-10-01 19:14 | PM.HP.1 ---
History of Present Illness History of Present Illness Chief complaint: Right upper quadrant pain 9 days Narrative: The patient is a woman who delivered via 9 days ago. At 4:30 a.m. this morning she developed severe right upper quadrant pain radiating into her shoulder. She has never had anything like this before. She was anorexic but did not vomit. Last p.o. intake was last night. She was seen at the clinic where she lives and referred to the hospital for treatment and evaluation. Patient History Medical History AMA (advanced maternal age) multigravida 35+ Anxiety Asthma Migraine Ovarian cyst Pneumonia Surgical History History of appendectomy History of bilateral breast reduction surgery History of carpal tunnel surgery of right wrist (~2014) Hx of tonsillectomy (~2016) S/P primary low transverse (~08/10/12) S/P wisdom tooth extraction (~2008) Family & Social History Family History Mother History of prediabetes Cancer Breast cancer AA (alcohol abuse) Father Joint replaced Sepsis Grandmother Head injury due to trauma Smoker Obesity Wheelchair bound Grandfather Cancer Colon cancer Grandmother Alzheimers disease Grandfather Head injury due to trauma AA (alcohol abuse) Sister No problems noted. Family/Other AA (alcohol abuse) Family/Other AA (alcohol abuse) Drug addiction Family estrangement Social History: household members significant other,children lives independently Yes Safety & Behavioral: Feels Safe in Current Yes Environment Tobacco & Substance use: Smoking Status Never smoker alcohol intake former alcohol intake frequency holiday/special occasion Substance Use Type does not use Meds Home Medications and Allergies Home Medications Medication Instructions Recorded Confirmed Type ferrous sulfate 325 mg (65 mg 325 mg PO DAILY 04/15/20 10/01/20 History iron) tablet (Feosol) prenat.vits,amna,ixa-nflk-aysdl 1 tab PO DAILY 04/15/20 10/01/20 History labetalol 100 mg tablet 100 mg PO BID #60 tab 09/10/20 10/01/20 Rx ondansetron 4 mg disintegrating 4 mg PO Q6H PRN #7 tab 09/24/20 10/01/20 Rx tablet oxycodone 10 mg tablet 10 mg PO Q4H PRN #20 tab 09/24/20 10/01/20 Rx oxycodone 10 mg tablet 10 mg PO Q6H PRN #20 tab 09/26/20 10/01/20 Rx Allergies Allergy/AdvReac Type Severity Reaction Status Date / Time amoxicillin Allergy Severe Major Hives Verified 10/01/20 13:59 Penicillins Allergy Severe Severe Verified 10/01/20 13:59 Hives Review of Systems Review of Systems Narrative: Patient denies visual difficulties or jaundice. No tooth aches or trouble swallowing. No cough or cold at this time. She has asthma triggered by illness. Normally not bothered by it. No heart problems or murmurs. No black or bloody bowel movements. No dysuria or history of kidney stones. No seizures or blackouts. No unusual bruising or bleeding. Exam Vital Signs (past 8 hours): - 10/01/20 13:52 10/01/20 14:29 10/01/20 14:30 Pulse Rate 107 H 101 H 101 H Respiratory Rate 22 25 H Blood Pressure 115/56 L 117/63 Pulse Oximetry 95 97 97 Oxygen Delivery Method Room Air Narrative Exam Narrative: Cooperative woman in no apparent distress. Her baby is laying on her chest. Her lungs are clear to auscultation no rales or rhonchi heart regular rate and rhythm little rapid no murmur gallop appreciated eyes are nonicteric pupils equal round reactive to light there are no nodes in the neck supraclavicular areas trachea is midline mobile abdomen is protuberant soft. She has evidence of a prior belly button ring. site is intact with no cellulitis. She is tender in the right upper quadrant and right abdomen. Referred pain to the right upper quadrant. The epigastrium and left abdomen entirely benign. Objective Labs Result Diagrams: 10/01/20 13:55 10/01/20 13:55 Labs: Laboratory Results - last 24 hr 10/01/20 10/01/20 10/01/20 13:35 13:55 13:55 WBC RBC Hgb Hct MCV MCH MCHC RDW Plt Count Neut % (Auto) Lymph % (Auto) Brule % (Auto) Eos % (Auto) Baso % (Auto) Neut # (Auto) Lymph # (Auto) Brule # (Auto) Eos # (Auto) Baso # (Auto) PT 13.5 H INR 1.2 APTT 22 L Fibrinogen 570 H Sodium 137 Potassium 4.2 Chloride 106 Carbon Dioxide 23 BUN 16 Creatinine 0.56 Estimated GFR > 60.0 BUN/Creatinine Ratio 28.6 H Glucose 102 H Lactate Uric Acid 7.2 H Calcium 8.8 Total Bilirubin 0.7 Conjugated Bilirubin 0.0 Unconjugated Bilirubin 0.5 AST 26 ALT 28 Alkaline Phosphatase 87 Lactate Dehydrogenase 539 Total Creatine Kinase 145 H CK-MB (CK-2) 1.34 CK-MB (CK-2) Rel Index 0.9 L Troponin I < 0.012 NT-Pro-B Natriuret Pep 275 H Total Protein 6.3 Albumin 3.1 L Globulin 3.2 Albumin/Globulin Ratio 1.0 Lipase 12 L Procalcitonin Urine RBC Urine WBC Ur Squamous Epith Cells Urine Bacteria Ur Culture Indicated? SARS-CoV-2 (PCR) Blood Type Antibody Screen 10/01/20 10/01/20 10/01/20 13:55 13:55 13:55 WBC 11.0 RBC 3.31 L Hgb 9.7 L Hct 29.3 L MCV 88.3 MCH 29.4 MCHC 33.3 RDW 14.8 Plt Count 274 Neut % (Auto) 91.5 H Lymph % (Auto) 4.6 L Brule % (Auto) 3.3 Eos % (Auto) 0.4 L Baso % (Auto) 0.2 Neut # (Auto) 71562 H Lymph # (Auto) 500 L Brule # (Auto) 400 Eos # (Auto) 0 Baso # (Auto) 0 PT INR APTT Fibrinogen Sodium Potassium Chloride Carbon Dioxide BUN Creatinine Estimated GFR BUN/Creatinine Ratio Glucose Lactate 0.8 Uric Acid Calcium Total Bilirubin Conjugated Bilirubin Unconjugated Bilirubin AST ALT Alkaline Phosphatase Lactate Dehydrogenase Total Creatine Kinase CK-MB (CK-2) CK-MB (CK-2) Rel Index Troponin I NT-Pro-B Natriuret Pep Total Protein Albumin Globulin Albumin/Globulin Ratio Lipase Procalcitonin Urine RBC Urine WBC Ur Squamous Epith Cells Urine Bacteria Ur Culture Indicated? SARS-CoV-2 (PCR) Blood Type A Positive Antibody Screen Negative 10/01/20 10/01/20 10/01/20 13:55 15:20 17:33 WBC RBC Hgb Hct MCV MCH MCHC RDW Plt Count Neut % (Auto) Lymph % (Auto) Brule % (Auto) Eos % (Auto) Baso % (Auto) Neut # (Auto) Lymph # (Auto) Brule # (Auto) Eos # (Auto) Baso # (Auto) PT INR APTT Fibrinogen Sodium Potassium Chloride Carbon Dioxide BUN Creatinine Estimated GFR BUN/Creatinine Ratio Glucose Lactate Uric Acid Calcium Total Bilirubin Conjugated Bilirubin Unconjugated Bilirubin AST ALT Alkaline Phosphatase Lactate Dehydrogenase Total Creatine Kinase CK-MB (CK-2) CK-MB (CK-2) Rel Index Troponin I NT-Pro-B Natriuret Pep Total Protein Albumin Globulin Albumin/Globulin Ratio Lipase Procalcitonin 0.78 H Urine RBC 5-10/hpf H Urine WBC 30-100/hpf H Ur Squamous Epith Cells >30 /hpf H Urine Bacteria Moderate (10-30) H Ur Culture Indicated? Cult not indicated SARS-CoV-2 (PCR) Negative Blood Type Antibody Screen Assessment & Plan Assessment and plan (1) Right upper quadrant pain: Status: Acute (2) Gallstones: Status: Acute (3) Previous section complicating : Status: Acute (4) Anemia: Status: Acute Assessment & Plan narrative: I reviewed patient's CT scan of the chest which was negative for PE. This was done because the patient was hypotensive and mildly hypoxic. Reviewed CT of her abdomen. Large amount of stool in her transverse colon. There appears to be a gallstone. Her spleen looks a little generous to me. No other lesions seen. Patient's ultrasound shows clearly shows a stone singular nature in the gallbladder. There may be some slight wall thickening. The ductal system is normal. Patient's liver function tests are within normal limits. I suspect based on her history physical exam and ultrasonography findings as well as her CT that her symptoms are not related to her but rather to her gallbladder I have discussed removal of her gallbladder with her. Risks of bleeding infection injury to internal organs or ducts which would require major operation were all discussed. Bile leakage and the possible need for an ERCP was discussed. Hernia was also discussed and limitations postoperatively. She appeared to understand and wished to proceed. All questions were answered. Discussion was had in the presence of her spouse. Patient is morbid obesity will make this a very challenging operation as well as challenge her postoperative mobility.
[2020-10-01] MEDS: LACTATED RINGERS 1,000 ML 150 ML IV ×2 (19:35→21:27)
[2020-10-01] MEDS: metroNIDAZOLE 500 MG/100 ML PIGGYBACK 100 MG IV (19:36)
--- NOTE | 2020-10-01 20:43 | SUR.OPER ---
Supine on padded OR bed, head on pillow, arms secured on padded arm boards at <90 degrees abduction, legs uncrossed, safety belt at thigh, gel pad under bilateral heels, tape over blanket over lower legs.
[2020-10-01] MEDS: BUPIVACAINE 0.5% (PF) VIAL 30 ML INJ (20:57)
[2020-10-01] MEDS: BACITRACIN OINT 0.9 GM PCKT 1 APPLIC TOP (22:50)
--- NOTE | 2020-10-01 23:10 | P.OP_ITS ---
Operative Date/Time/Diagnoses Date of procedure: 10/01/20 Time of procedure: 23:10 Pre-op diagnosis: Cholelithiasis cholecystitis Post-op diagnosis: other (Diffuse peritonitis with purulence throughout the abdomen. Cause appeared to be due to necrotic omentum at the level of the fascial closure and closure of the uterus.) Procedure & Clinicians Procedure: Exploratory laparotomy and drainage of intraperitoneal purulence. Same procedure as scheduled: No Indications: Patient with acute pain and an abnormal physical exam and CT sigmoid and ultrasound suggesting gallbladder disease. Surgeon: Yg Neil Dry Plasterer Helper: Jossy Pandey Anesthesia Type: General Operative Notes Findings: There was greenish purulence and debris throughout the abdomen. However the only abnormality found was densely adherent and partially necrotic omentum sandwiched between the abdominal wall and the uterine closure. The colon was soft without evidence of diverticulitis. The patient has had her appendix removed. The gallbladder though whitish in color was certainly not perforated and not the cause of this diffuse abnormality. The small bowel was normal in appearance. See details below. Closure Type: primary Specimen(s): other (Cultures) Applied: drain(s) (2 7 mm Fady-Colmenares drains. The upper drain goes along the right gutter adjacent to the liver. The lower drain goes into the pelvis posterior to the uterus.) Estimated Blood Loss (mL): 10 Blood products transfused: none Procedure in detail: Patient was placed supine on her bed and underwent general endotracheal anesthesia P sheath was then moved to the OR table and where she was prepped and draped in the usual fashion. Local anesthetic was infiltrated an and did vertical incision made above the umbilicus due to her size. Was carried down under direct vision into the peritoneal cavity. Stay sutures of 0 Vicryl were placed in the fascia. A 12 mm port was inserted and the abdomen examined. I was struck by the amount of green purulent-looking fluid throughout both gutters and into the pelvis. Cultures were taken. An additional port was placed under the right costal margin laterally and I elevated the liver to examine the gallbladder. It was not necrotic and did not appear to be the source of this intra-abdominal problem. I suctioned a lot of the fluid from the gutters and then turned my attention to the pelvis. There was omentum densely attached to the anterior abdominal wall in the midline. I was in a somewhat of a quandary because the patient was not febrile and had a normal white blood cell count. She was having bowel function and yet this abdomen was quite ill appearing I was concerned that this might be a process related to her recent C- section and therefore I asked Dr. Pandey to join me in the operating room. An additional 5 mm port was placed in the right side mid abdomen. When Dr. Pandey arrived we began to examine the pelvis and I was able to identify the uterus clearly and there was necrotic omentum attached to the anterior abdominal wall. I divided using cautery so that the tented portion of the omentum was now free. Thus we could examine the uterus and and the pelvic structures. Posteriorly the uterus looked fine as did the tubes. The right ovary was seen and was normal in appearance. The omentum however was densely adherent to the anterior abdominal wall presumptively where the fascial closure was located. This would have been probably also directly over the uterine closure. Using blunt dissection I could not get this down and I decided there would be no benefit to doing so since clearly there was no intestine involved anteriorly. I lifted the uterus and examined the sigmoid and it appeared to be normal soft and uninvolved. I examined the visible small bowel in it looked normal. The ascending colon was soft and pliable as was the descending colon. The stomach was not inflamed and did not have any evidence of a perforated ulcer as the source of this problem. After thorough examination irrigation and suctioning it was decided to treat the patient for presumptive infection and not open her to explore her since it did not appear that the intestine was involved in whatever process this was. Fady-Colmenares drains were placed in the right gutter and behind the uterus in the pelvis. These were brought out through the 5 mm port sites in the right lateral abdomen. The upper port site has the drain along the right gutter and the lower port site has the drain into the pelvis. These were secured with suture. The 10 mm port in the midline was removed and the stay sutures of 0 Vicryl were tied along with placing a 2 0 PDS between them. The wound was irrigated and 4-0 Vicryl was used to close the space with a single stitch and then the subcu was closed with interrupted 4-0 Vicryl and the skin closed with running 5 0 nylon. Dressings were applied the patient tolerated the procedure well. Complications: none Post-operative Condition: stable Disposition: PACU
--- NOTE | 2020-10-01 23:40 | PC.NURSE ---
Admit/Evening Shift Note- Patient arrived to room via stretcher from ER at 1800. Admit questions done, physical assessment done, and skin check completed. Healing incision noted. Patient alert and oriented and able to make needs known to staff. Oriented patient to bed and bed controls, room, bathroom, lights, phone, menu, and call pratt/tv remote. Safety measures in place. Patient agrees to call for assistance as needed. Call pratt and phone within reach. Will continue to monitor.
--- NOTE | 2020-10-01 23:54 | SUR.PHASEI ---
Patient was at pain level 8/10 upon arrival in the OR. Currently in no pain. Dozing intermittently, arouses easily when spoken to. Continues to deny pain, VSS, no longer tachycardiac. denies pain/nausea. C/o feel hot upon arrival to PACU; diaphorretic around her mouth. Cool washcloth to her forehead which has been refreshed. Taking ice chips. Patient verbalizes appreciation for ice and cool cloth. States that she is feeling good; very sleepy. States that she feels ready to go to her room. Asking questions about her surgery. Upper right dressing has shadow of pale pink/yellow drainage.
[2020-10-02] VITALS (12 sets, daily range): BP systolic 92–120; BP diastolic 62–73; PULSE 73–95; RESP 16–21; TEMP 36.1–36.9; O2SAT 94–98
--- NOTE | 2020-10-02 00:20 | SUR.PHASEI ---
0001 to room 221, bed down and locked, call light within reach. O2 at 4lnp. Patient has her eyes closed but responds when spoken to, requesting more ice chips. Alert, oriented. Clothing bag to her room (what was left on her when she came to the OR). VSS. Was beginning to feel some pain when preparing to depart for her room. The AC nurse was informed and will treat. Drains emptied upon arrival by ACOUSTIC INTELLIGENCE SPECIALIST. SCDs on. No further questions from patient or staff. Other than around her mouth, the skin is warm and dry. Resp unlabored. Patient expressed appreciation for her care. No further questions from patient or staff.
[2020-10-02] MEDS: MORPHINE 2 MG/ML INJ IV ×4 (00:45→21:16)
[2020-10-02] MEDS: metroNIDAZOLE 500 MG/100 ML PIGGYBACK 100 MG IV ×3 (00:46→16:25)
[2020-10-02] MEDS: LACTATED RINGERS 1,000 ML 100 ML IV ×2 (01:00→13:02)
[2020-10-02] MEDS: OXYCODONE IR 5 MG TABLET 10 MG PO ×6 (01:56→23:38)
[2020-10-02] MEDS: ACETAMINOPHEN 325 MG TABLET 650 MG PO (02:41)
[2020-10-02 05:57] LABS: Add Manual Diff / Slide Review NO; Basophils Absolute Auto 0 /uL (0-100); Eosinophils Absolute Auto 0 /uL (0-450); Hematocrit 27.4 % (36-46); Lymphocytes Absolute Auto 400 /uL (1100-4500); Lymphocytes Percent Auto 3.1 % (25-40); Mean Corpuscular HGB Conc 32.8 % (30-36); Mean Corpuscular Hemoglobin 29.5 PG (26-34); Mean Corpuscular Volume 90.1 fL (80-100); Monocytes Absolute Auto 200 /uL (0-900); Monocytes Percent Auto 1.6 % (3-14); Neutrophils Absolute Auto 13700 /uL (1500-7000); Neutrophils Percent Auto 95.3 % (50-75); Platelet Count 298 X10^3/uL (150-400); Red Blood Cell Count 3.04 X10^6/uL (4.0-5.2); Red Cell Distribution Width 15.1 % (11.6-14.8); White Blood Cell Count 14.4 X10^3/uL (4.5-11.0)
--- NOTE | 2020-10-02 06:56 | PC.NURSE ---
pt came up from surgery around 0015, pt smiling and making conversation, comfortable in bed, within next 30 minutes requesting pain meds with pain at 7/10. pt received morphine mg, and pt was confortable for almost an hour and requesting more pain meds, pt was given oxy 10mg and tylenol, and then morphine again 4 hours later per orders, pt's pain continues to stay at 7-8/10, even though the pt is sleeping and snoring, she wakes easily and is asking for more pain meds, Nurse called providers office and will wait for return call from Dr Neil to see if pt can have something else for pain.
[2020-10-02] MEDS: LABETALOL 100 MG TABLET PO ×2 (09:14→21:20)
[2020-10-02] MEDS: IBUPROFEN 600 MG TABLET PO ×2 (09:14→14:38)
[2020-10-02] MEDS: DOCUSATE 250 MG CAPSULE PO ×2 (09:15→21:19)
[2020-10-02 11:13] LABS: Acinetobacter baumannii Not Detected (Not Detect); Enterobacteriaceae species Not Detected (Not Detect); Enterococcus species Not Detected (Not Detect); Listeria monocytogenes Not Detected (Not Detect); Methicillin-resistant gene Not Detected (Not Detect); Staphylococcus species Detected (Not Detect); Streptococcus agalactiae (Gr B Not Detected (Not Detect); Streptococcus pneumonia Not Detected (Not Detect); Streptococcus pyogenes (Gr A) Not Detected (Not Detect); Streptococcus species Not Detected (Not Detect)
--- NOTE | 2020-10-02 11:13 | CM.IDA ---
Initial DCP Assessment Note Pt is a 34 yo female, resident of [facility], s/p C section by Dr Vanessa 09.22.20,healthy baby boy delivered (second child) now arrives w/right upper quadrant pain, taken into the OR by Dr Neil and Dr Pandey; according to notes- Diffuse peritonitis with purulence throughout the abdomen. Cause appeared to be due to necrotic omentum at the level of the fascial closure and closure of the uterus PCP: Saeid Sarabia Payer: Roman/ANGELA Reviewed chart, pt recovering now from surgery 10.01.20 at approx 2300. DC needs unknown at this time. Patient will likely return home w/family for post operative care, w/close monitoring in the outpatient setting. Patient lives on [facility], likely physician team will not release patient until certain patient is medically ready for outpatient care Following closely. No needs expected from DC planning team although will remain available in case this changes before medical DC. QUINTON Choudhary
[2020-10-02 11:14] LABS: Candida albicans Not Detected (Not Detect); Candida glabrata Not Detected (Not Detect); Candida krusei Not Detected (Not Detect); Candida parapsilosis Not Detected (Not Detect); Candida tropicalis Not Detected (Not Detect); E. coli Not Detected (Not Detect); Enterobacter cloacae complex Not Detected (Not Detect); Haemophilus influenzae Not Detected (Not Detect); Neisseria meningitidis Not Detected (Not Detect); Proteus species Not Detected (Not Detect); Pseudomonas aeruginosa Not Detected (Not Detect); Serratia marcescens Not Detected (Not Detect)
--- NOTE | 2020-10-02 12:17 | P.PN_ITS ---
Subjective Subjective Date Patient Seen: 10/02/20 Time Patient Seen: 09:00 Interval history: Patient complains of severe abdominal pain when she moves. A Exam Vital Signs (past 8 hours): - 10/02/20 04:25 10/02/20 05:17 10/02/20 08:20 Temperature 98.4 F 97.0 F L 97.7 F Pulse Rate 95 H 92 H 83 Respiratory Rate 16 16 16 Blood Pressure 92/62 98/68 93/65 Pulse Oximetry 98 94 95 10/02/20 11:49 Temperature 97.8 F Pulse Rate 88 Respiratory Rate 16 Blood Pressure 92/67 Pulse Oximetry 94 Oxygen Delivery Method Room Air Oxygen Flow Rate 0 Narrative Exam Narrative: Drains intact. Dressings intact. Drainage from the drain in the right gutter is cloudy serous fluid. That in the pelvis is draining cloudy blood-tinged fluid. Objective Labs Result Diagrams: 10/02/20 05:05 10/01/20 13:55 Labs: Laboratory Results - last 24 hr 10/01/20 10/01/20 10/01/20 13:35 13:55 13:55 WBC RBC Hgb Hct MCV MCH MCHC RDW Plt Count Neut % (Auto) Lymph % (Auto) [place] % (Auto) Eos % (Auto) Baso % (Auto) Neut # (Auto) Lymph # (Auto) [place] # (Auto) Eos # (Auto) Baso # (Auto) PT 13.5 H INR 1.2 APTT 22 L Fibrinogen 570 H Sodium 137 Potassium 4.2 Chloride 106 Carbon Dioxide 23 BUN 16 Creatinine 0.56 Estimated GFR > 60.0 BUN/Creatinine Ratio 28.6 H Glucose 102 H Lactate Uric Acid 7.2 H Calcium 8.8 Total Bilirubin 0.7 Conjugated Bilirubin 0.0 Unconjugated Bilirubin 0.5 AST 26 ALT 28 Alkaline Phosphatase 87 Lactate Dehydrogenase 539 Total Creatine Kinase 145 H CK-MB (CK-2) 1.34 CK-MB (CK-2) Rel Index 0.9 L Troponin I < 0.012 NT-Pro-B Natriuret Pep 275 H Total Protein 6.3 Albumin 3.1 L Globulin 3.2 Albumin/Globulin Ratio 1.0 Lipase 12 L Procalcitonin Urine RBC Urine WBC Ur Squamous Epith Cells Urine Bacteria Ur Culture Indicated? A. baumannii (PCR) Mirna albicans (PCR) C. glabrata (PCR) C. krusei (PCR) C. parapsilosis (PCR) C. tropicalis (PCR) SARS-CoV-2 (PCR) Enterobacteriac sp PCR E. cloacae complex PCR Enterococcus sp PCR E. coli (PCR) H. influenzae (PCR) Klebsiella oxytoca PCR Klebsiella pneumoniae List. monocytogenes PCR N. meningitidis (PCR) Proteus species (PCR) Serratia marcescens PCR Staphylococcus sp PCR Staph aureus (PCR) mecA-Methicil Res Gene Streptococcus sp PCR Group A Strep (PCR) Strep agalactiae (PCR) Strep pneumoniae (PCR) P. aeruginosa (PCR) Benji/B-Vanco Res Genes KPC-Carbap Res Gene PCR Blood Type Antibody Screen 10/01/20 10/01/20 10/01/20 13:55 13:55 13:55 WBC 11.0 RBC 3.31 L Hgb 9.7 L Hct 29.3 L MCV 88.3 MCH 29.4 MCHC 33.3 RDW 14.8 Plt Count 274 Neut % (Auto) 91.5 H Lymph % (Auto) 4.6 L [place] % (Auto) 3.3 Eos % (Auto) 0.4 L Baso % (Auto) 0.2 Neut # (Auto) 01531 H Lymph # (Auto) 500 L [place] # (Auto) 400 Eos # (Auto) 0 Baso # (Auto) 0 PT INR APTT Fibrinogen Sodium Potassium Chloride Carbon Dioxide BUN Creatinine Estimated GFR BUN/Creatinine Ratio Glucose Lactate 0.8 Uric Acid Calcium Total Bilirubin Conjugated Bilirubin Unconjugated Bilirubin AST ALT Alkaline Phosphatase Lactate Dehydrogenase Total Creatine Kinase CK-MB (CK-2) CK-MB (CK-2) Rel Index Troponin I NT-Pro-B Natriuret Pep Total Protein Albumin Globulin Albumin/Globulin Ratio Lipase Procalcitonin Urine RBC Urine WBC Ur Squamous Epith Cells Urine Bacteria Ur Culture Indicated? A. baumannii (PCR) Mirna albicans (PCR) C. glabrata (PCR) C. krusei (PCR) C. parapsilosis (PCR) C. tropicalis (PCR) SARS-CoV-2 (PCR) Enterobacteriac sp PCR E. cloacae complex PCR Enterococcus sp PCR E. coli (PCR) H. influenzae (PCR) Klebsiella oxytoca PCR Klebsiella pneumoniae List. monocytogenes PCR N. meningitidis (PCR) Proteus species (PCR) Serratia marcescens PCR Staphylococcus sp PCR Staph aureus (PCR) mecA-Methicil Res Gene Streptococcus sp PCR Group A Strep (PCR) Strep agalactiae (PCR) Strep pneumoniae (PCR) P. aeruginosa (PCR) Benji/B-Vanco Res Genes KPC-Carbap Res Gene PCR Blood Type A Positive Antibody Screen Negative 10/01/20 10/01/20 10/01/20 13:55 15:00 15:20 WBC RBC Hgb Hct MCV MCH MCHC RDW Plt Count Neut % (Auto) Lymph % (Auto) [place] % (Auto) Eos % (Auto) Baso % (Auto) Neut # (Auto) Lymph # (Auto) [place] # (Auto) Eos # (Auto) Baso # (Auto) PT INR APTT Fibrinogen Sodium Potassium Chloride Carbon Dioxide BUN Creatinine Estimated GFR BUN/Creatinine Ratio Glucose Lactate Uric Acid Calcium Total Bilirubin Conjugated Bilirubin Unconjugated Bilirubin AST ALT Alkaline Phosphatase Lactate Dehydrogenase Total Creatine Kinase CK-MB (CK-2) CK-MB (CK-2) Rel Index Troponin I NT-Pro-B Natriuret Pep Total Protein Albumin Globulin Albumin/Globulin Ratio Lipase Procalcitonin 0.78 H Urine RBC 5-10/hpf H Urine WBC 30-100/hpf H Ur Squamous Epith Cells >30 /hpf H Urine Bacteria Moderate (10-30) H Ur Culture Indicated? Cult not indicated A. baumannii (PCR) Not detected Mirna albicans (PCR) Not detected C. glabrata (PCR) Not detected C. krusei (PCR) Not detected C. parapsilosis (PCR) Not detected C. tropicalis (PCR) Not detected SARS-CoV-2 (PCR) Enterobacteriac sp PCR Not detected E. cloacae complex PCR Not detected Enterococcus sp PCR Not detected E. coli (PCR) Not detected H. influenzae (PCR) Not detected Klebsiella oxytoca PCR Not detected Klebsiella pneumoniae Not detected List. monocytogenes PCR Not detected N. meningitidis (PCR) Not detected Proteus species (PCR) Not detected Serratia marcescens PCR Not detected Staphylococcus sp PCR Detected H Staph aureus (PCR) Not detected mecA-Methicil Res Gene Not detected Streptococcus sp PCR Not detected Group A Strep (PCR) Not detected Strep agalactiae (PCR) Not detected Strep pneumoniae (PCR) Not detected P. aeruginosa (PCR) Not detected Benji/B-Vanco Res Genes Not Reportable KPC-Carbap Res Gene PCR Not Reportable Blood Type Antibody Screen 10/01/20 10/02/20 17:33 05:05 WBC 14.4 H RBC 3.04 L Hgb 9.0 L Hct 27.4 L MCV 90.1 MCH 29.5 MCHC 32.8 RDW 15.1 H Plt Count 298 Neut % (Auto) 95.3 H Lymph % (Auto) 3.1 L [place] % (Auto) 1.6 L Eos % (Auto) 0.0 L Baso % (Auto) 0.0 Neut # (Auto) 62157 H Lymph # (Auto) 400 L [place] # (Auto) 200 Eos # (Auto) 0 Baso # (Auto) 0 PT INR APTT Fibrinogen Sodium Potassium Chloride Carbon Dioxide BUN Creatinine Estimated GFR BUN/Creatinine Ratio Glucose Lactate Uric Acid Calcium Total Bilirubin Conjugated Bilirubin Unconjugated Bilirubin AST ALT Alkaline Phosphatase Lactate Dehydrogenase Total Creatine Kinase CK-MB (CK-2) CK-MB (CK-2) Rel Index Troponin I NT-Pro-B Natriuret Pep Total Protein Albumin Globulin Albumin/Globulin Ratio Lipase Procalcitonin Urine RBC Urine WBC Ur Squamous Epith Cells Urine Bacteria Ur Culture Indicated? A. baumannii (PCR) Mirna albicans (PCR) C. glabrata (PCR) C. krusei (PCR) C. parapsilosis (PCR) C. tropicalis (PCR) SARS-CoV-2 (PCR) Negative Enterobacteriac sp PCR E. cloacae complex PCR Enterococcus sp PCR E. coli (PCR) H. influenzae (PCR) Klebsiella oxytoca PCR Klebsiella pneumoniae List. monocytogenes PCR N. meningitidis (PCR) Proteus species (PCR) Serratia marcescens PCR Staphylococcus sp PCR Staph aureus (PCR) mecA-Methicil Res Gene Streptococcus sp PCR Group A Strep (PCR) Strep agalactiae (PCR) Strep pneumoniae (PCR) P. aeruginosa (PCR) Benji/B-Vanco Res Genes KPC-Carbap Res Gene PCR Blood Type Antibody Screen [facility] Medical History AMA (advanced maternal age) multigravida 35+ Anxiety Asthma Migraine Ovarian cyst Pneumonia Surgical History History of appendectomy History of bilateral breast reduction surgery History of carpal tunnel surgery of right wrist (~2014) Hx of tonsillectomy (~2017) S/P primary low transverse (~08/10/12) S/P wisdom tooth extraction (~2008) Family History Mother History of prediabetes Cancer Breast cancer AA (alcohol abuse) Father Joint replaced Sepsis Grandmother Head injury due to trauma Smoker Obesity Wheelchair bound Grandfather Cancer Colon cancer Grandmother Alzheimers disease Grandfather Head injury due to trauma AA (alcohol abuse) Sister No problems noted. 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 Postoperative plan narrative: Continue drains. Consider DVT prophylaxis with Lovenox. Antibiotic adjustment based on cultures when available. Quality VTE Deep Vein Thrombosis/Pulmonary Embolism Present on Admission: No
--- NOTE | 2020-10-02 13:26 | P.PN_ITS ---
Subjective Subjective Date Patient Seen: 10/02/20 Time Patient Seen: 10:00 Interval history: Patient appears to be quite uncomfortable postoperative. She complains of headache and still has pain with breathing in the right upper quadrant. She is using ice packs to help the discomfort on her abdomen and head. Patient was tearful because she regionally was told that she could not have her bring their child into the hospital but this has been fixed so that they can come into the hospital. Discussed the surgery and what we think is going on that is causing her to be ill. Exam Vital Signs (past 8 hours): - 10/02/20 08:20 10/02/20 11:49 Temperature 97.7 F 97.8 F Pulse Rate 83 88 Respiratory Rate 16 16 Blood Pressure 93/65 92/67 Pulse Oximetry 95 94 Oxygen Delivery Method Room Air Oxygen Flow Rate 0 Narrative Exam Narrative: Patient's abdomen is soft with appropriate tenderness. Her dressings are clean, dry, intact. Her prior incision appears to be healing well. No evidence of infection. Extremities with continued edema but no significant change. No pain with palpation. Lochia is mild. Objective Labs Result Diagrams: 10/02/20 05:05 10/01/20 13:55 Labs: Laboratory Results - last 24 hr 10/01/20 10/01/20 10/01/20 13:35 13:55 13:55 WBC RBC Hgb Hct MCV MCH MCHC RDW Plt Count Neut % (Auto) Lymph % (Auto) [place] % (Auto) Eos % (Auto) Baso % (Auto) Neut # (Auto) Lymph # (Auto) [place] # (Auto) Eos # (Auto) Baso # (Auto) PT 13.5 H INR 1.2 APTT 22 L Fibrinogen 570 H Sodium 137 Potassium 4.2 Chloride 106 Carbon Dioxide 23 BUN 16 Creatinine 0.56 Estimated GFR > 60.0 BUN/Creatinine Ratio 28.6 H Glucose 102 H Lactate Uric Acid 7.2 H Calcium 8.8 Total Bilirubin 0.7 Conjugated Bilirubin 0.0 Unconjugated Bilirubin 0.5 AST 26 ALT 28 Alkaline Phosphatase 87 Lactate Dehydrogenase 539 Total Creatine Kinase 145 H CK-MB (CK-2) 1.34 CK-MB (CK-2) Rel Index 0.9 L Troponin I < 0.012 NT-Pro-B Natriuret Pep 275 H Total Protein 6.3 Albumin 3.1 L Globulin 3.2 Albumin/Globulin Ratio 1.0 Lipase 12 L Procalcitonin Urine RBC Urine WBC Ur Squamous Epith Cells Urine Bacteria Ur Culture Indicated? A. baumannii (PCR) Mirna albicans (PCR) C. glabrata (PCR) C. krusei (PCR) C. parapsilosis (PCR) C. tropicalis (PCR) SARS-CoV-2 (PCR) Enterobacteriac sp PCR E. cloacae complex PCR Enterococcus sp PCR E. coli (PCR) H. influenzae (PCR) Klebsiella oxytoca PCR Klebsiella pneumoniae List. monocytogenes PCR N. meningitidis (PCR) Proteus species (PCR) Serratia marcescens PCR Staphylococcus sp PCR Staph aureus (PCR) mecA-Methicil Res Gene Streptococcus sp PCR Group A Strep (PCR) Strep agalactiae (PCR) Strep pneumoniae (PCR) P. aeruginosa (PCR) Benji/B-Vanco Res Genes KPC-Carbap Res Gene PCR Blood Type Antibody Screen 10/01/20 10/01/20 10/01/20 13:55 13:55 13:55 WBC 11.0 RBC 3.31 L Hgb 9.7 L Hct 29.3 L MCV 88.3 MCH 29.4 MCHC 33.3 RDW 14.8 Plt Count 274 Neut % (Auto) 91.5 H Lymph % (Auto) 4.6 L [place] % (Auto) 3.3 Eos % (Auto) 0.4 L Baso % (Auto) 0.2 Neut # (Auto) 60550 H Lymph # (Auto) 500 L [place] # (Auto) 400 Eos # (Auto) 0 Baso # (Auto) 0 PT INR APTT Fibrinogen Sodium Potassium Chloride Carbon Dioxide BUN Creatinine Estimated GFR BUN/Creatinine Ratio Glucose Lactate 0.8 Uric Acid Calcium Total Bilirubin Conjugated Bilirubin Unconjugated Bilirubin AST ALT Alkaline Phosphatase Lactate Dehydrogenase Total Creatine Kinase CK-MB (CK-2) CK-MB (CK-2) Rel Index Troponin I NT-Pro-B Natriuret Pep Total Protein Albumin Globulin Albumin/Globulin Ratio Lipase Procalcitonin Urine RBC Urine WBC Ur Squamous Epith Cells Urine Bacteria Ur Culture Indicated? A. baumannii (PCR) Mirna albicans (PCR) C. glabrata (PCR) C. krusei (PCR) C. parapsilosis (PCR) C. tropicalis (PCR) SARS-CoV-2 (PCR) Enterobacteriac sp PCR E. cloacae complex PCR Enterococcus sp PCR E. coli (PCR) H. influenzae (PCR) Klebsiella oxytoca PCR Klebsiella pneumoniae List. monocytogenes PCR N. meningitidis (PCR) Proteus species (PCR) Serratia marcescens PCR Staphylococcus sp PCR Staph aureus (PCR) mecA-Methicil Res Gene Streptococcus sp PCR Group A Strep (PCR) Strep agalactiae (PCR) Strep pneumoniae (PCR) P. aeruginosa (PCR) Benji/B-Vanco Res Genes KPC-Carbap Res Gene PCR Blood Type A Positive Antibody Screen Negative 10/01/20 10/01/20 10/01/20 13:55 15:00 15:20 WBC RBC Hgb Hct MCV MCH MCHC RDW Plt Count Neut % (Auto) Lymph % (Auto) [place] % (Auto) Eos % (Auto) Baso % (Auto) Neut # (Auto) Lymph # (Auto) [place] # (Auto) Eos # (Auto) Baso # (Auto) PT INR APTT Fibrinogen Sodium Potassium Chloride Carbon Dioxide BUN Creatinine Estimated GFR BUN/Creatinine Ratio Glucose Lactate Uric Acid Calcium Total Bilirubin Conjugated Bilirubin Unconjugated Bilirubin AST ALT Alkaline Phosphatase Lactate Dehydrogenase Total Creatine Kinase CK-MB (CK-2) CK-MB (CK-2) Rel Index Troponin I NT-Pro-B Natriuret Pep Total Protein Albumin Globulin Albumin/Globulin Ratio Lipase Procalcitonin 0.78 H Urine RBC 5-10/hpf H Urine WBC 30-100/hpf H Ur Squamous Epith Cells >30 /hpf H Urine Bacteria Moderate (10-30) H Ur Culture Indicated? Cult not indicated A. baumannii (PCR) Not detected Mirna albicans (PCR) Not detected C. glabrata (PCR) Not detected C. krusei (PCR) Not detected C. parapsilosis (PCR) Not detected C. tropicalis (PCR) Not detected SARS-CoV-2 (PCR) Enterobacteriac sp PCR Not detected E. cloacae complex PCR Not detected Enterococcus sp PCR Not detected E. coli (PCR) Not detected H. influenzae (PCR) Not detected Klebsiella oxytoca PCR Not detected Klebsiella pneumoniae Not detected List. monocytogenes PCR Not detected N. meningitidis (PCR) Not detected Proteus species (PCR) Not detected Serratia marcescens PCR Not detected Staphylococcus sp PCR Detected H Staph aureus (PCR) Not detected mecA-Methicil Res Gene Not detected Streptococcus sp PCR Not detected Group A Strep (PCR) Not detected Strep agalactiae (PCR) Not detected Strep pneumoniae (PCR) Not detected P. aeruginosa (PCR) Not detected Benji/B-Vanco Res Genes Not Reportable KPC-Carbap Res Gene PCR Not Reportable Blood Type Antibody Screen 10/01/20 10/02/20 17:33 05:05 WBC 14.4 H RBC 3.04 L Hgb 9.0 L Hct 27.4 L MCV 90.1 MCH 29.5 MCHC 32.8 RDW 15.1 H Plt Count 298 Neut % (Auto) 95.3 H Lymph % (Auto) 3.1 L [place] % (Auto) 1.6 L Eos % (Auto) 0.0 L Baso % (Auto) 0.0 Neut # (Auto) 47935 H Lymph # (Auto) 400 L [place] # (Auto) 200 Eos # (Auto) 0 Baso # (Auto) 0 PT INR APTT Fibrinogen Sodium Potassium Chloride Carbon Dioxide BUN Creatinine Estimated GFR BUN/Creatinine Ratio Glucose Lactate Uric Acid Calcium Total Bilirubin Conjugated Bilirubin Unconjugated Bilirubin AST ALT Alkaline Phosphatase Lactate Dehydrogenase Total Creatine Kinase CK-MB (CK-2) CK-MB (CK-2) Rel Index Troponin I NT-Pro-B Natriuret Pep Total Protein Albumin Globulin Albumin/Globulin Ratio Lipase Procalcitonin Urine RBC Urine WBC Ur Squamous Epith Cells Urine Bacteria Ur Culture Indicated? A. baumannii (PCR) Mirna albicans (PCR) C. glabrata (PCR) C. krusei (PCR) C. parapsilosis (PCR) C. tropicalis (PCR) SARS-CoV-2 (PCR) Negative Enterobacteriac sp PCR E. cloacae complex PCR Enterococcus sp PCR E. coli (PCR) H. influenzae (PCR) Klebsiella oxytoca PCR Klebsiella pneumoniae List. monocytogenes PCR N. meningitidis (PCR) Proteus species (PCR) Serratia marcescens PCR Staphylococcus sp PCR Staph aureus (PCR) mecA-Methicil Res Gene Streptococcus sp PCR Group A Strep (PCR) Strep agalactiae (PCR) Strep pneumoniae (PCR) P. aeruginosa (PCR) Benji/B-Vanco Res Genes KPC-Carbap Res Gene PCR Blood Type Antibody Screen [facility] Medical History AMA (advanced maternal age) multigravida 35+ Anxiety Asthma Migraine Ovarian cyst Pneumonia Surgical History History of appendectomy History of bilateral breast reduction surgery History of carpal tunnel surgery of right wrist (~2014) Hx of tonsillectomy (~2016) S/P primary low transverse (~08/10/12) S/P wisdom tooth extraction (~2008) Family History Mother History of prediabetes Cancer Breast cancer AA (alcohol abuse) Father Joint replaced Sepsis Grandmother Head injury due to trauma Smoker Obesity Wheelchair bound Grandfather Cancer Colon cancer Grandmother Alzheimers disease Grandfather Head injury due to trauma AA (alcohol abuse) Sister No problems noted. 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 Status: Acute (3) Anemia: Problem details: Holding the patient's iron supplements until she is passing stool. Status: Acute (4) Right upper quadrant pain: Problem details: Patient with continued pain. Hopefully as the antibiotics are continued and drainage her pain will improve. Status: Acute Assessment & Plan narrative: Likely peritonitis either infectious or reactive to omental tissue . Continue IV antibiotics. Agree that starting Lovenox would be appropriate as the patient is not ambulatory. Will continue the Clarke for now but hopefully can begin patient moving and can DC the Clarke. Quality VTE Deep Vein Thrombosis/Pulmonary Embolism Present on Admission: No
--- NOTE | 2020-10-02 13:56 | PC.NURSE ---
Assess- Patient given oxycodone at ibuprofen and effective for pain control. She is pumping with a breast pump and throwing her milk away as she is taking narcotics, patient just had a baby 9 days ago. Baby and boyfriend are in the room visiting. Patient has dressings to lower abdomen that are cdi, with 2 ATILIO drain sites, putting out light yellow drainage and bloody drainage. We are documenting amount in each drain.
[2020-10-02] MEDS: ENOXAPARIN 40 MG/0.4 ML SYRINGE SUBCUT ×2 (14:40→21:19)
[2020-10-02] MEDS: levoFLOXacin 750 MG/150 ML PIGGYBACK 100 MG IV (17:10)
[2020-10-02] MEDS: KETOROLAC 30 MG/ML VIAL IV (21:19)
[2020-10-03] VITALS (9 sets, daily range): BP systolic 95–110; BP diastolic 62–71; PULSE 70–89; RESP 16–18; TEMP 35.9–36.7; O2SAT 93–98
[2020-10-03] MEDS: MORPHINE 2 MG/ML INJ IV ×2 (01:19→06:34)
[2020-10-03] MEDS: LACTATED RINGERS 1,000 ML 100 ML IV ×2 (02:10→13:02)
[2020-10-03] MEDS: SODIUM CHLORIDE 0.9% FLUSH 10 ML IV ×4 (02:17→22:00)
[2020-10-03] MEDS: KETOROLAC 30 MG/ML VIAL IV ×5 (02:17→22:01)
[2020-10-03] MEDS: OXYCODONE IR 5 MG TABLET 10 MG PO ×5 (03:49→21:59)
[2020-10-03 08:18] LABS: Add Manual Diff / Slide Review NO; Basophils Absolute Auto 0 /uL (0-100); Basophils Percent Auto 0.1 % (0-2); Eosinophils Absolute Auto 0 /uL (0-450); Eosinophils Percent Auto 0.1 % (2-4); Hematocrit 25.8 % (36-46); Hemoglobin 8.3 g/dL (12.0-16.0); Lymphocytes Absolute Auto 1200 /uL (1100-4500); Lymphocytes Percent Auto 8.3 % (25-40); Mean Corpuscular HGB Conc 32.1 % (30-36); Mean Corpuscular Hemoglobin 28.8 PG (26-34); Mean Corpuscular Volume 89.7 fL (80-100); Monocytes Absolute Auto 400 /uL (0-900); Neutrophils Absolute Auto 13100 /uL (1500-7000); Neutrophils Percent Auto 88.5 % (50-75); Platelet Count 333 X10^3/uL (150-400); Red Blood Cell Count 2.88 X10^6/uL (4.0-5.2); White Blood Cell Count 14.8 X10^3/uL (4.5-11.0)
[2020-10-03 08:30] LABS: BUN Creatinine Ratio 37.5 (6-22); Blood Urea Nitrogen 24 mg/dL (7-17); Calcium 8.7 mg/dL (8.4-10.2); Carbon Dioxide 26 mmol/L (22-32); Chloride 104 mmol/L (98-107); Estimated Glomerular Filt Rate > 60.0 mL/min (>60); Glucose 105 mg/dL (70-100); HEMOLYSIS < 15 (0-50); Potassium 4.2 mmol/L (3.4-5.1); Sodium 135 mmol/L (137-145)
[2020-10-03] MEDS: DOCUSATE 250 MG CAPSULE PO ×2 (09:23→21:59)
[2020-10-03] MEDS: ENOXAPARIN 40 MG/0.4 ML SYRINGE SUBCUT (09:24)
[2020-10-03] MEDS: metroNIDAZOLE 500 MG/100 ML PIGGYBACK 100 MG IV ×3 (09:24→16:21)
[2020-10-03] MEDS: LABETALOL 100 MG TABLET PO ×2 (09:26→21:59)
--- NOTE | 2020-10-03 10:27 | P.PN_ITS ---
Subjective Subjective Date Patient Seen: 10/03/20 Time Patient Seen: 10:28 Interval history: Patient is feeling better today than yesterday. She has increased pain when her drains are not emptied soon enough. She is passing gas. She is ready to try to ambulate and remove her Clarke catheter Exam Vital Signs (past 8 hours): - 10/03/20 04:00 10/03/20 08:00 Temperature 97.0 F L 98.1 F Pulse Rate 86 74 Respiratory Rate 16 18 Blood Pressure 104/62 104/68 Pulse Oximetry 95 95 Oxygen Delivery Method Room Air Oxygen Flow Rate 0 Narrative Exam Narrative: Patient's abdomen is soft with no rebound tenderness. Her dressings are clean, dry, intact. Mild lochia. Extremities with continued mild edema and nontender. Objective Labs Result Diagrams: 10/03/20 08:00 10/03/20 08:00 Labs: Laboratory Results - last 24 hr 10/01/20 10/03/20 10/03/20 15:00 08:00 08:00 WBC 14.8 H RBC 2.88 L Hgb 8.3 L Hct 25.8 L MCV 89.7 MCH 28.8 MCHC 32.1 RDW 15.0 H Plt Count 333 Neut % (Auto) 88.5 H Lymph % (Auto) 8.3 L [place] % (Auto) 3.0 Eos % (Auto) 0.1 L Baso % (Auto) 0.1 Neut # (Auto) 38993 H Lymph # (Auto) 1200 [place] # (Auto) 400 Eos # (Auto) 0 Baso # (Auto) 0 Sodium 135 L Potassium 4.2 Chloride 104 Carbon Dioxide 26 BUN 24 H Creatinine 0.64 Estimated GFR > 60.0 BUN/Creatinine Ratio 37.5 H Glucose 105 H Calcium 8.7 A. baumannii (PCR) Not detected Mirna albicans (PCR) Not detected C. glabrata (PCR) Not detected C. krusei (PCR) Not detected C. parapsilosis (PCR) Not detected C. tropicalis (PCR) Not detected Enterobacteriac sp PCR Not detected E. cloacae complex PCR Not detected Enterococcus sp PCR Not detected E. coli (PCR) Not detected H. influenzae (PCR) Not detected Klebsiella oxytoca PCR Not detected Klebsiella pneumoniae Not detected List. monocytogenes PCR Not detected N. meningitidis (PCR) Not detected Proteus species (PCR) Not detected Serratia marcescens PCR Not detected Staphylococcus sp PCR Detected H Staph aureus (PCR) Not detected mecA-Methicil Res Gene Not detected Streptococcus sp PCR Not detected Group A Strep (PCR) Not detected Strep agalactiae (PCR) Not detected Strep pneumoniae (PCR) Not detected P. aeruginosa (PCR) Not detected Benji/B-Vanco Res Genes Not Reportable KPC-Carbap Res Gene PCR Not Reportable PFSH Medical History AMA (advanced maternal age) multigravida 35+ Anxiety Asthma Migraine Ovarian cyst Pneumonia Surgical History History of appendectomy History of bilateral breast reduction surgery History of carpal tunnel surgery of right wrist (~2014) Hx of tonsillectomy (~2016) S/P primary low transverse (~08/10/12) S/P wisdom tooth extraction (~2008) Family History Mother History of prediabetes Cancer Breast cancer AA (alcohol abuse) Father Joint replaced Sepsis Grandmother Head injury due to trauma Smoker Obesity Wheelchair bound Grandfather Cancer Colon cancer Grandmother Alzheimers disease Grandfather Head injury due to trauma AA (alcohol abuse) Sister No problems noted. Family/Other AA (alcohol abuse) Family/Other AA (alcohol abuse) Drug addiction Family estrangement Social History marital status: unmarried,single number of children: 1 household members: significant other and children lives independently: Yes pets and animals: Yes education level: vocational ([employer]) occupational status: unemployed current occupational exposures/hazards: No special tiff needs: No Smoking Status: Never smoker second hand exposure: No alcohol intake: former (pre- : very rare use) substance use type: does not use Assessment & Plan Assessment and plan (1) Pelvic infection: Status: Acute (2) Right upper quadrant pain: Status: Acute Assessment & Plan narrative: Patient is improving. Will try ambulation today and DC Clarke catheter. Will continue IV antibiotics. DC drains when output decreases. Quality VTE Deep Vein Thrombosis/Pulmonary Embolism Present on Admission: No
--- NOTE | 2020-10-03 12:33 | PC.NURSE ---
Addendum entered by Deysi Cody R.N. 10/03/20 14:24: Patient just given oxycodone, she is now getting up into the chair and will pump her milk and then throw out as she is taking the narcotic pain medication. She has a 9 10 day old son. ATILIO #1 had 75cc of milky yellow fluid in bulb and ATILIO #2 had 30cc of bloody drainage. Original Note: Patients drain putting out ser sang drainage and saing drainage. She is in better spirits today and pain level has come down. ATILIO drain dressing cdi, and smaller incision to mid lower abdomen is cdi. Patients baby and are in the room. here to see patient she will get up at 1330 after pain medication given at 1300 and ambulate in room. Resting comfortably.
--- NOTE | 2020-10-03 14:02 | CM.DPNOTE ---
DCP Cont Met w/patient to introduce role. Patient very pleasant, states she is having some post operative pain issues, she will likely stay in the hospital tonight, possibly for additional 24-48hrs+ to ensure infection is well controlled and pain managed...before going back to [facility]. Drains remain in place Patient lives in her childhood home w/bf Leo Marcia# [phone], in laws live down the street. New baby boy being cared for by Dad and other family members, Dad has the next week off to assist w/patient's recovery needs and needs of . Patient's other son out of state w/grandparents. 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 May benefit from HH RN (?) for care s/p c section, at home, now s/p abd surgery w/drain placement and IV abx infusing Will follow closely in case any DC needs or concerns arise JW
--- NOTE | 2020-10-03 14:17 | P.PN_ITS ---
Subjective Subjective Date Patient Seen: 10/03/20 Time Patient Seen: 14:18 Interval history: feels better than yesterday and since admission. No acute overnight events. minimal appetite. Exam Vital Signs (past 8 hours): - 10/03/20 08:00 10/03/20 11:51 Temperature 98.1 F 97.5 F L Pulse Rate 74 70 Respiratory Rate 18 18 Blood Pressure 104/68 105/67 Pulse Oximetry 95 98 Oxygen Delivery Method Room Air Oxygen Flow Rate 0 Narrative Exam Narrative: Gen-Adult female no acute distress morbid obesity Abdomen-No peritonitis. Drain #1-Purulence. Drain 2-Serosanginous. Appropriately tender to palpation Objective Labs Result Diagrams: 10/03/20 08:00 10/03/20 08:00 Labs: Laboratory Results - last 24 hr 10/03/20 10/03/20 08:00 08:00 WBC 14.8 H RBC 2.88 L Hgb 8.3 L Hct 25.8 L MCV 89.7 MCH 28.8 MCHC 32.1 RDW 15.0 H Plt Count 333 Neut % (Auto) 88.5 H Lymph % (Auto) 8.3 L [place] % (Auto) 3.0 Eos % (Auto) 0.1 L Baso % (Auto) 0.1 Neut # (Auto) 91399 H Lymph # (Auto) 1200 [place] # (Auto) 400 Eos # (Auto) 0 Baso # (Auto) 0 Sodium 135 L Potassium 4.2 Chloride 104 Carbon Dioxide 26 BUN 24 H Creatinine 0.64 Estimated GFR > 60.0 BUN/Creatinine Ratio 37.5 H Glucose 105 H Calcium 8.7 PFSH Medical History AMA (advanced maternal age) multigravida 35+ Anxiety Asthma Migraine Ovarian cyst Pneumonia Surgical History History of appendectomy History of bilateral breast reduction surgery History of carpal tunnel surgery of right wrist (~2014) Hx of tonsillectomy (~2016) S/P primary low transverse (~08/10/12) S/P wisdom tooth extraction (~2008) Family History Mother History of prediabetes Cancer Breast cancer AA (alcohol abuse) Father Joint replaced Sepsis Grandmother Head injury due to trauma Smoker Obesity Wheelchair bound Grandfather Cancer Colon cancer Grandmother Alzheimers disease Grandfather Head injury due to trauma AA (alcohol abuse) Sister No problems noted. Family/Other AA (alcohol abuse) Family/Other AA (alcohol abuse) Drug addiction Family estrangement Social History marital status: unmarried,single number of children: 1 household members: significant other and children lives independently: Yes pets and animals: Yes education level: vocational ([employer]) occupational status: unemployed current occupational exposures/hazards: No special tiff needs: No Smoking Status: Never smoker second hand exposure: No alcohol intake: former (pre- : very rare use) substance use type: does not use Assessment & Plan Assessment & Plan narrative: 34F POD 2 SP diagnostic laparoscopy and drainage of purulence. Based on the operative findings and clinical timeline doubtful there is a missed intestinal injury suspect that the omentum was infarcted. -Diet as tolerated -Continue drains until clear -F/u intra abdominal cultures adjust abx as necessary -OOB and ambulate Quality VTE Deep Vein Thrombosis/Pulmonary Embolism Present on Admission: No
--- NOTE | 2020-10-03 14:26 | P.PN_ITS ---
Exam Vital Signs (past 8 hours): - 10/03/20 08:00 10/03/20 11:51 Temperature 98.1 F 97.5 F L Pulse Rate 74 70 Respiratory Rate 18 18 Blood Pressure 104/68 105/67 Pulse Oximetry 95 98 Oxygen Delivery Method Room Air Oxygen Flow Rate 0 Objective Labs Result Diagrams: 10/03/20 08:00 10/03/20 08:00 Labs: Laboratory Results - last 24 hr 10/03/20 10/03/20 08:00 08:00 WBC 14.8 H RBC 2.88 L Hgb 8.3 L Hct 25.8 L MCV 89.7 MCH 28.8 MCHC 32.1 RDW 15.0 H Plt Count 333 Neut % (Auto) 88.5 H Lymph % (Auto) 8.3 L [place] % (Auto) 3.0 Eos % (Auto) 0.1 L Baso % (Auto) 0.1 Neut # (Auto) 74334 H Lymph # (Auto) 1200 [place] # (Auto) 400 Eos # (Auto) 0 Baso # (Auto) 0 Sodium 135 L Potassium 4.2 Chloride 104 Carbon Dioxide 26 BUN 24 H Creatinine 0.64 Estimated GFR > 60.0 BUN/Creatinine Ratio 37.5 H Glucose 105 H Calcium 8.7 PFSH Medical History AMA (advanced maternal age) multigravida 35+ Anxiety Asthma Migraine Ovarian cyst Pneumonia Surgical History History of appendectomy History of bilateral breast reduction surgery History of carpal tunnel surgery of right wrist (~2014) Hx of tonsillectomy (~2016) S/P primary low transverse (~08/10/12) S/P wisdom tooth extraction (~2008) Family History Mother History of prediabetes Cancer Breast cancer AA (alcohol abuse) Father Joint replaced Sepsis Grandmother Head injury due to trauma Smoker Obesity Wheelchair bound Grandfather Cancer Colon cancer Grandmother Alzheimers disease Grandfather Head injury due to trauma AA (alcohol abuse) Sister No problems noted. 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
[2020-10-03 15:00] LABS: Bacteria Urine None Seen
[2020-10-03 15:14] LABS: Culture Indicated Urine Cult Not Indicated; RBC Urine 0-1/HPF (0-5/HPF); Squamous Epithelial Cell Urine 0-1 /HPF (0-5/HPF); WBC Urine 0-1/HPF (0-5/HPF)
[2020-10-03] MEDS: levoFLOXacin 750 MG/150 ML PIGGYBACK 100 MG IV (17:59)
[2020-10-04] VITALS (8 sets, daily range): BP systolic 101–133; BP diastolic 60–76; PULSE 66–93; RESP 16–20; TEMP 35.6–37.2; O2SAT 96–100
[2020-10-04] MEDS: ACETAMINOPHEN 325 MG TABLET 650 MG PO (00:33)
[2020-10-04] MEDS: metroNIDAZOLE 500 MG/100 ML PIGGYBACK 100 MG IV ×2 (00:34→10:10)
[2020-10-04] MEDS: OXYCODONE IR 5 MG TABLET 10 MG PO ×5 (01:50→19:49)
[2020-10-04] MEDS: LACTATED RINGERS 1,000 ML 100 ML IV (01:52)
[2020-10-04] MEDS: KETOROLAC 30 MG/ML VIAL IV ×3 (04:53→20:01)
[2020-10-04 05:50] LABS: Add Manual Diff / Slide Review YES; Hematocrit 26.6 % (36-46); Hemoglobin 8.7 g/dL (12.0-16.0); Mean Corpuscular HGB Conc 32.7 % (30-36); Mean Corpuscular Hemoglobin 29.1 PG (26-34); Mean Corpuscular Volume 89.1 fL (80-100); Platelet Count 322 X10^3/uL (150-400); Red Blood Cell Count 2.99 X10^6/uL (4.0-5.2); Red Cell Distribution Width 14.9 % (11.6-14.8); White Blood Cell Count 9.6 X10^3/uL (4.5-11.0)
[2020-10-04 05:57] LABS: Alanine Aminotransferase 20 IU/L (<35); Albumin 2.6 g/dL (3.5-5.0); Albumin Globulin Ratio 0.9 (1.0-2.8); Alkaline Phosphatase 75 U/L (38-126); Aspartate Aminotransferase 20 IU/L (14-36); BUN Creatinine Ratio 34.4 (6-22); Bilirubin Total 0.1 mg/dL (0.2-1.3); Blood Urea Nitrogen 21 mg/dL (7-17); Calcium 8.3 mg/dL (8.4-10.2); Carbon Dioxide 25 mmol/L (22-32); Chloride 107 mmol/L (98-107); Estimated Glomerular Filt Rate > 60.0 mL/min (>60); Globulin 2.8 g/dL (1.7-4.1); Glucose 86 mg/dL (70-100); HEMOLYSIS < 15 (0-50); Potassium 3.7 mmol/L (3.4-5.1); Sodium 138 mmol/L (137-145); Total Protein 5.4 g/dL (6.3-8.2)
[2020-10-04 06:51] LABS: Neutrophils Absolute Manual 7680 /uL (3000-5900); Platelet Estimate Adequate on smear; RBC Morphology Normal Morphology; Total Cells Counted 100
[2020-10-04] MEDS: LABETALOL 100 MG TABLET PO (10:11)
[2020-10-04] MEDS: SODIUM CHLORIDE 0.9% FLUSH 10 ML IV ×2 (10:11→20:02)
[2020-10-04] MEDS: DOCUSATE 250 MG CAPSULE PO ×2 (10:15→20:02)
--- NOTE | 2020-10-04 10:42 | PM.PNPO.1 ---
Subjective Subjective Date Patient Seen: 10/04/20 Time Patient Seen: 10:42 Interval history: s/p Csection with pelvic abscess complication, morbid obesity, s/p wash out. Painful. Exam Vital Signs (past 8 hours): - 10/04/20 04:23 Temperature 96.7 F L Pulse Rate 77 Respiratory Rate 16 Blood Pressure 104/65 Pulse Oximetry 96 Oxygen Delivery Method Room Air Oxygen Flow Rate 0 Narrative Exam Narrative: abdomen has incisional tenderness, no infection. o/w soft. Objective Labs Result Diagrams: 10/04/20 05:00 10/04/20 05:00 Labs: Laboratory Results - last 24 hr 10/03/20 10/04/20 10/04/20 13:50 05:00 05:00 WBC 9.6 RBC 2.99 L Hgb 8.7 L Hct 26.6 L MCV 89.1 MCH 29.1 MCHC 32.7 RDW 14.9 H Plt Count 322 Neut % (Auto) Not Reportable Lymph % (Auto) Not Reportable [place] % (Auto) Not Reportable Eos % (Auto) Not Reportable Baso % (Auto) Not Reportable Lymph # (Auto) Not Reportable [place] # (Auto) Not Reportable Baso # (Auto) Not Reportable Total Counted 100 Seg Neutrophils % 76.0 H Band Neutrophils % 4.0 Lymphocytes % (Manual) 16.0 L Monocytes % (Manual) 2.0 Eosinophils % (Manual) 2.0 Neutrophils # (Manual) 7680 H Platelet Estimate Adequate on smear RBC Morphology Normal morphology Sodium 138 Potassium 3.7 Chloride 107 Carbon Dioxide 25 BUN 21 H Creatinine 0.61 Estimated GFR > 60.0 BUN/Creatinine Ratio 34.4 H Glucose 86 Calcium 8.3 L Total Bilirubin 0.1 L AST 20 ALT 20 Alkaline Phosphatase 75 Total Protein 5.4 L Albumin 2.6 L Globulin 2.8 Albumin/Globulin Ratio 0.9 L Urine RBC 0-1/hpf Urine WBC 0-1/hpf Ur Squamous Epith Cells 0-1 /hpf D Urine Bacteria None seen Ur Culture Indicated? Cult not indicated PFSH Medical History AMA (advanced maternal age) multigravida 35+ Anxiety Asthma Migraine Ovarian cyst Pneumonia Surgical History History of appendectomy History of bilateral breast reduction surgery History of carpal tunnel surgery of right wrist (~2014) Hx of tonsillectomy (~2016) S/P primary low transverse (~08/10/12) S/P wisdom tooth extraction (~2008) Family History Mother History of prediabetes Cancer Breast cancer AA (alcohol abuse) Father Joint replaced Sepsis Grandmother Head injury due to trauma Smoker Obesity Wheelchair bound Grandfather Cancer Colon cancer Grandmother Alzheimers disease Grandfather Head injury due to trauma AA (alcohol abuse) Sister No problems noted. 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 Possible discharge tomorrow if pain can be controlled Time Spent With Patient Time with patient: less than 15 minutes Quality VTE Deep Vein Thrombosis/Pulmonary Embolism Present on Admission: No
--- NOTE | 2020-10-04 11:35 | P.PN_ITS ---
Subjective Subjective Date Patient Seen: 10/04/20 Time Patient Seen: 11:35 Interval history: POD#2 s/p Exploratory Laparotomy for post- acute abdomen. The patient's bowel function is recovering and she is passing gas but she has not yet had a bowel movement. She is tolerating regular diet. Her pain however is still poorly controlled and diffuse rather than merely incision. Intraperitoneal drains continue to produce moderate amounts of lightly yellow t inged serous fluid. Exam Vital Signs (past 8 hours): - 10/04/20 04:23 10/04/20 09:00 Temperature 96.7 F L 97.8 F Pulse Rate 77 84 Respiratory Rate 16 18 Blood Pressure 104/65 133/76 Pulse Oximetry 96 100 Oxygen Delivery Method Room Air Oxygen Flow Rate 0 Const General: cooperative and in distress (mild, due to abdominal pain) Nutritional Appearance: obese Orientation: alert and oriented x3 HENMT Head: atraumatic and abrasion Ears: hearing grossly normal bilaterally Nose: external nose normal Face and sinus: face symmetric Eyes General: appearance normal, both eyes and all related structures GI Inspection: incision (Dressing dry and intact) and other (Drain fluid 1+ WBC's, ++ lipoid globules) Palpation: no hepatosplenomegaly, firm and tender ( Diffuse, all quadrants, greatest in the right upper quadrant) Auscultation: normoactive bowel sounds Extrem General: normal to inspection and no calf tenderness Objective Labs Result Diagrams: 10/04/20 05:00 10/04/20 05:00 Labs: Laboratory Results - last 24 hr 10/03/20 10/04/20 10/04/20 13:50 05:00 05:00 WBC 9.6 RBC 2.99 L Hgb 8.7 L Hct 26.6 L MCV 89.1 MCH 29.1 MCHC 32.7 RDW 14.9 H Plt Count 322 Neut % (Auto) Not Reportable Lymph % (Auto) Not Reportable [place] % (Auto) Not Reportable Eos % (Auto) Not Reportable Baso % (Auto) Not Reportable Lymph # (Auto) Not Reportable [place] # (Auto) Not Reportable Baso # (Auto) Not Reportable Total Counted 100 Seg Neutrophils % 76.0 H Band Neutrophils % 4.0 Lymphocytes % (Manual) 16.0 L Monocytes % (Manual) 2.0 Eosinophils % (Manual) 2.0 Neutrophils # (Manual) 7680 H Platelet Estimate Adequate on smear RBC Morphology Normal morphology Sodium 138 Potassium 3.7 Chloride 107 Carbon Dioxide 25 BUN 21 H Creatinine 0.61 Estimated GFR > 60.0 BUN/Creatinine Ratio 34.4 H Glucose 86 Calcium 8.3 L Total Bilirubin 0.1 L AST 20 ALT 20 Alkaline Phosphatase 75 Total Protein 5.4 L Albumin 2.6 L Globulin 2.8 Albumin/Globulin Ratio 0.9 L Urine RBC 0-1/hpf Urine WBC 0-1/hpf Ur Squamous Epith Cells 0-1 /hpf D Urine Bacteria None seen Ur Culture Indicated? Cult not indicated PFS Medical History (Updated 10/04/20 @ 12:23 by Yg Donis MD) AMA (advanced maternal age) multigravida 35+ Anxiety Asthma Chemical peritonitis following a procedure Migraine Ovarian cyst Pneumonia Surgical History History of appendectomy History of bilateral breast reduction surgery History of carpal tunnel surgery of right wrist (~2014) Hx of tonsillectomy (~2016) S/P primary low transverse (~08/10/12) S/P wisdom tooth extraction (~2008) Family History Mother History of prediabetes Cancer Breast cancer AA (alcohol abuse) Father Joint replaced Sepsis Grandmother Head injury due to trauma Smoker Obesity Wheelchair bound Grandfather Cancer Colon cancer Grandmother Alzheimers disease Grandfather Head injury due to trauma AA (alcohol abuse) Sister No problems noted. 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 This presumed diagnosis would be consistent with her her diffuse abdomino-pelvic pain and inflammatory picture c/w peritonitis without evidence of an infectious etiology/bowel injury. Finding discussed with patient and she seems relieved. Also discussed was the possibility of discontinuing IV antibiotics since she has remained afebrile with a normal fever and there is and noninfectious explanation for the patient's clinical picture. Will discuss with Dr. Srinivas Madden who is the surgeon on-call this weekend. Also discussed was the possibility of using gabapentin to mitigate her pain symptoms but the patient has used gabapentin in the past with significant adverse reaction therefore will not add gabapentin to her pain management regimen. Will continue efforts to mitigate her pain in preparations for probable discharge 10/05/2020. Postoperative Procedures: Procedures Operation Date: 10/01/20 20:00 Actual Procedure Side Surgeon p Exploratory laparotomy and drainage of intraperitoneal purulence Yg colvin MD Time Spent With Patient Time with patient: 15-24 minutes Quality VTE Deep Vein Thrombosis/Pulmonary Embolism Present on Admission: No
[2020-10-04 15:29] LABS: Triglycerides 159 mg/dL (35-150)
[2020-10-04 17:18] LABS: Triglycerides Body Fluid 57 mg/dL
--- NOTE | 2020-10-04 17:40 | PC.NURSE ---
Pt Assisted w/shower w/o incidence. Denies discomfort at this time. ATILIO x 2 intact/patent. Sent fluid from ATILIO to lab. HL x 2 in LH & RH intact/patent. Bandaid dsg mid abdomen CDI, incision CDI & baby in room Call light w/in reach, pt independent in room.
[2020-10-05] VITALS: BP 102/58; PULSE 97; RESP 16; TEMP 35.9; O2SAT 97
[2020-10-05] MEDS: OXYCODONE IR 5 MG TABLET 10 MG PO ×2 (00:30→11:26)
[2020-10-05] MEDS: ACETAMINOPHEN 325 MG TABLET 650 MG PO (03:45)
[2020-10-05 04:00] VITALS: BP 135/74; PULSE 92; RESP 16; TEMP 36.1; O2SAT 98
[2020-10-05 07:55] VITALS: O2SAT 99
[2020-10-05 08:00] VITALS: BP 130/72; PULSE 64; RESP 18; TEMP 36.7; O2SAT 100
--- NOTE | 2020-10-05 09:16 | PM.PN.1 ---
Subjective Subjective Date Patient Seen: 10/05/20 Time Patient Seen: 09:17 Exam Vital Signs (past 8 hours): - 10/05/20 04:00 Temperature 96.9 F L Pulse Rate 92 H Respiratory Rate 16 Blood Pressure 135/74 Pulse Oximetry 98 Oxygen Delivery Method Room Air Oxygen Flow Rate 0 Narrative Exam Narrative: feel better Const General: cooperative and healthy appearing Orientation: alert HENMT Other: incisional tenderness. drains are cloudy (lipid) no infection Objective Labs Result Diagrams: 10/04/20 05:00 10/04/20 05:00 Labs: Laboratory Results - last 24 hr 10/04/20 10/04/20 05:00 16:25 Triglycerides 159 H Fluid Triglycerides 57 PFSH Medical History (Updated 10/04/20 @ 12:23 by Yg Donis MD) AMA (advanced maternal age) multigravida 35+ Anxiety Asthma Chemical peritonitis following a procedure Migraine Ovarian cyst Pneumonia Surgical History History of appendectomy History of bilateral breast reduction surgery History of carpal tunnel surgery of right wrist (~2014) Hx of tonsillectomy (~2016) S/P primary low transverse (~08/10/12) S/P wisdom tooth extraction (~2008) Family History Mother History of prediabetes Cancer Breast cancer AA (alcohol abuse) Father Joint replaced Sepsis Grandmother Head injury due to trauma Smoker Obesity Wheelchair bound Grandfather Cancer Colon cancer Grandmother Alzheimers disease Grandfather Head injury due to trauma AA (alcohol abuse) Sister No problems noted. 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 No evidence of infection clnically and no growth in cultures. Agree with stopping antibiotics. Remove drain with lowest volume. Send home with single drain and drain teaching with follow up general surgery 1-2 weeks. Quality VTE Deep Vein Thrombosis/Pulmonary Embolism Present on Admission: No
[2020-10-05] MEDS: LABETALOL 100 MG TABLET PO (09:38)
[2020-10-05 12:00] VITALS: BP 138/67; PULSE 81; RESP 18; TEMP 36.7; O2SAT 99
--- NOTE | 2020-10-05 15:20 | PC.NURSE ---
Discharge: Pt and spouse feel ready to d/c to home. Given priority load. Pt seen by Dr. Madden and Dr. Donis and they gave pt final discharge instructions. Initially both drains were to be removed, however due to the amount of drainage from drain 1 it was left in per md's Gagandeep's orders. ATILIO #2 removed intact and a dry sterile dressing was applied. Pt shown how to care for ATILIO #1. Record amt of fluid out. Bring the record with her to the doctors office. Has been refusing to take lovenox. Dr Donis was made aware. He would like her to take medication. Reason for medication explained to pt, the risk of blood clots and this medication will help prevent them. She is unsure and will think about it. Discussed amb, ankle waves, calf pumping, sxs of dvt. Pt given printed info about how to give injection of levenox in case she decideds to try it. Unable to make follow up appt and pt is to make those tomorrow. Otherwise she is taking her diet w/out problems, vds w/out diff. po pain meds effective. Spouse picked up RX. Reviewed d/c packet. Questions answered. Pt d/c home via auto. Pt had a culture on her abd fluid which came back positive for gram positive cocci. This was called to Dr. Madden.
--- NOTE | 2020-10-06 16:56 | P.DS_ITS ---
History of Present Illness History of Present Illness Date Patient Seen: 10/05/20 Time Patient Seen: 12:45 Chief complaint: Right upper quadrant pain 9 days Discharge Providers Provider Date of admission: 10/01/20 17:47 Discharge Date: 10/05/20 Primary care physician: Saeid Sarabia MD Consults: General Surgery ([facility]) Discharge provider: Yg Donis MD Summary Hospital Course Discharge Diagnosis: 1. Abdominal pain 2. Peritonitis, aseptic, lipoid Hospital Course: Following admission on the evening of 10/01/2020, the patient was taken to [facility] OR by Dr. Mitchell Neil due to her severe abdominal pain and the finding of cholelithiasis on abdominal CT. At the time of surgery however she was found to have a diffuse peritonitis with what was believed to be purulent material throughout the abdominal cavity. Also noted at the time was an area of omental necrosis following her section 9 days prior. She underwent a washout and drain placement via exploratory laparotomy with peritoneal fluid showing moderate WBC's with 1+ gram positive cocci and 1+gram negative coccobacilli. Broad-spectrum IV antibiotic therapy was initiated. One of two blood cultures showed staph species but the other was no growth. Peritoneal fluid cultures obtained at surgery showed no aerobic bacterial growth but anaerobic culture showed light growth of Peptococcus anaerobius. Throughout her preop and postoperative course she remained afebrile and her white blood cell count was in the normal range with a normal differential prior to her emergent surgery. Post-op H/H showed her to be mildly anemic but essentially unchanged from admission post-. Although she con tinued to have significant abdominal pain requiring q.4 hours her narcotic therapy for adequate relief, she had normal return of bowel and bladder function following her surgery. One of 2 drains placed at the time of surgery continue to drain significant amounts of yellowish fluid which upon microscopic assessment showed lipoid globules and 1+ wbc's. As result of these findings it is believed that her peritonitis is a septic and due to the omental necrosis following section which involved extensive lysis of adhesions for safe delivery of the . Antibiotics were discontinued on 10/04/2020 and the patient observe for any development of fever or other signs of infection. She continued to be afebrile, was ambulating independently, tolerating a regular diet, and her pain was reasonably well controlled with oxycodone 10 mg p.o. q.4 hours as needed for pain. She was discharged on 10/05/2020 to home after being counseled regarding precautionary symptoms, limitations of activity, medications, and plans for follow-up. Medications at the time of discharge will include oxycodone 10 mg p.o. q.4 hours as needed pain. Sixty tablets were sent to [facility] on [address] [facility] [address] and due to the fact that they were closed on her date of discharge, an additional [facility] [place]. The patient was also discharged on Lovenox 40 mg subQ b.i.d. times 10 days, Colace 100 mg p.o. b.i.d., labetalol 100 mg p.o. q.d., and ibuprofen 600 mg p.o. q.6 hours as needed pain. One of her 2 drains were removed prior to discharge but she was discharge with one drain still in place which will be removed by General Surgery at the time of her follow-up which is to be arranged in 1-2 weeks. A follow-up appointment with her building cleaning supervisor, Dr. Cynthia Jeffries will also be made in approximately 3-4 weeks. Status at Discharge Cognitive/behavioral status at discharge: oriented Functional status at discharge: independent ambulation Overall status at discharge: patient is not back to baseline Time Spent with Patient Time spent: Greater than 30 minutes Exam Vital Signs (past 8 hours): Oxygen Delivery Method Room Air Oxygen Flow Rate 0 Const General: cooperative, anxious and other (some distress due to pain with ambulation) Nutritional Appearance: obese Orientation: alert and oriented x3 HENMT Head: normal to inspection Eyes General: appearance normal, both eyes and all related structures Resp Effort & Inspection: normal respiratory effort and able to speak in complete sentences Auscultation: clear to auscultation bilaterally Cardio Rate: regular rate Rhythm: regular rhythm Heart Sounds: S1 normal, S2 normal and no murmurs GI Inspection: non-distended, incision (Dressing dry and intact), large pannus and obesity Palpation: no hepatosplenomegaly and tender (Diffuse, moderate) Extrem General: normal to inspection and No calf tenderness Psych Appearance: grossly normal Mental Status: mental status grossly normal Speech and Movement: speech and movement normal Mood: congruent mood Affect: normal affect Attitude: cooperative Thought Process: normal Thought Content: normal Judgment: judgment good Objective Labs Result Diagrams: 10/04/20 05:00 10/04/20 05:00 [facility], [facility] Medical History AMA (advanced maternal age) multigravida 35+ Anxiety Asthma Chemical peritonitis following a procedure Deep vein thrombosis (DVT) prophylaxis prescribed at discharge Migraine Ovarian cyst Pneumonia Surgical History History of appendectomy History of bilateral breast reduction surgery History of carpal tunnel surgery of right wrist (~2014) Hx of tonsillectomy (~2016) S/P primary low transverse (~08/10/12) S/P wisdom tooth extraction (~2008) Family History Mother History of prediabetes Cancer Breast cancer AA (alcohol abuse) Father Joint replaced Sepsis Grandmother Head injury due to trauma Smoker Obesity Wheelchair bound Grandfather Cancer Colon cancer Grandmother Alzheimers disease Grandfather Head injury due to trauma AA (alcohol abuse) Sister No problems noted. 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 Abdominal pain 2. Peritonitis, aseptic, lipoid 3. History of section Plan of Treatment: The patient will be discharged to home for self-care at this time. Pain management will be through use of oral oxycodone and oral ibuprofen. She will use Lovenox for the next 10 days or due to her high risk status for deep vein thrombosis and/or PE. she was counseled prior to discharge regarding drain care and her remaining intra-abdominal drain will be removed by General Surgery at the time of their follow-up with her in 1-2 weeks. follow-up with her building cleaning supervisor, Dr. Lee Ann Jeffries, will be arranged in approximately 3-4 weeks. Discharge Plan Discharge Plan Patient Disposition: Home Provider Discharge Comment: Contact General Surgery to schedule follow-up appointment for drain removal and our office for a follow-up appointment with Dr. Jeffries. Discharge orders & Medications Prescriptions: New docusate sodium 250 mg Capsule 250 mg PO BID Qty: 30 RF: 2 ibuprofen 600 mg Tablet 600 mg PO Q6H PRN (Reason: Fever/Mild Pain (1-3)) 30 Days Qty: 90 RF: 0 oxycodone 5 mg Tablet 10 mg PO Q4HR PRN (Reason: Pain, Severe (7-10)) 10 Days Qty: 60 RF: 0 oxycodone 10 mg tablet 10 mg PO Q4H PRN (Reason: Pain (Scale Score 7-10)) Qty: 14 RF: 0 Continued labetalol 100 mg tablet 100 mg PO BID Qty: 60 RF: 0 prenat.vits,amna,ivi-erwj-nidhn Tablet 1 tab PO DAILY RF: 0 No Action enoxaparin [Lovenox] 40 mg/0.4 mL syringe 40 mg SUBCUT BID 10 Days Qty: 8 RF: 0 oxycodone 10 mg tablet 10 mg PO Q4H PRN (Reason: pain) Qty: 42 RF: 0 Follow up/Referrals: Yg Neil MD [Physician] - 1 Week Saeid Sarabia MD [Primary Care Provider] - Diet/Activity/Treatments Diet: Diet as Tolerated Diet comment: As tolerated Activity: As tolerated Catheter comment: N/A Skin/Wound/Dressing Care Report to your healthcare provider any signs of infection, such as:: chills, fever, increased pain and unusual redness Dressing: Keep clean and dry Visit Report/Discharge Packet Instructions: DI for Peritonitis, DI for Laparoscopy, How to Use and Care for Your Fady-Colmenares Drain, Fady-Colmenares Drain, DI for Constipation, DI for Prescription Opioid Use, Enoxaparin Injection, [facility]: Wound Care Stand Alone Forms: Surgery Discharge Discharge Data Primary Care Provider: Saeid Sarabia Quality VTE Deep Vein Thrombosis/Pulmonary Embolism Present on Admission: No
== END 2020-10-05 14:25 | disposition home or self-care (01) | DRG 546 ==
LOC: ED 17:29 → AC 18:57
PROVIDERS: Obstetrics & Gynecology; Surgery; Admitting Provider Specialist; Emergency Provider Emergency Medicine; PCP Family Medicine; Referring Provider Emergency Medicine; Visit Provider Specialist
PROC: 0FT44ZZ Resection of Gallbladder, Percutaneous Endoscopic Approach (ICD-10-PCS; CPT 47562; principal; 2020-10-01 20:00)
DX: O90.89 Other complications of the puerperium, not elsewhere classified (principal); K55.061 Focal (segmental) acute infarction of intestine, part unspecified; K65.8 Other peritonitis; O90.81 Anemia of the puerperium; K80.20 Calculus of gallbladder without cholecystitis without obstruction; O99.215 Obesity complicating the puerperium; E66.01 Morbid (severe) obesity due to excess calories; O13.5 Gestational [pregnancy-induced] hypertension without significant proteinuria, complicating the puerperium; Z20.822 Contact with and (suspected) exposure to COVID-19
CPT/HCPCS: 36415; 49020; 51702; 51798; 71275; 74177; 76700; 80048; 80053; 80076; 81003; 81015; 82550; 82553; 83605; 83615; 83690; 83880; 84145; 84478; 84484; 84550; 85007; 85025; 85384; 85610; 85730; 86850; 86900; 86901; 87040; 87070; 87075; 87076; 87150; 87205; 87635; 93005; 96361; 96365; 96366; 96375; 96376; 99231; 99232; 99233; 99285; 99291; C9803; J1100; J1170; J1650; J1885; J1956; J2250; J2270; J2405; J2704; J3010; Q9967

== ENCOUNTER → 2020-11-28 09:42 | Outpatient (CLI) | payer OTHER, MEDICAID, SELFPAY ==
[2020-10-01 18:13] VITALS: BMI 52.9
[2020-11-28 21:12] LABS: COVID19 - ORCAS (NP or Nasal) POSITIVE (Negative)
== END ==
PROVIDERS: PCP Family Medicine; Visit Provider Family Medicine
DX: U07.1 COVID-19 (principal)
CPT/HCPCS: U0003

== ENCOUNTER → 2021-09-29 12:44 | Outpatient (CLI) | payer OTHER, MEDICAID, SELFPAY ==
[2020-10-01 18:13] VITALS: BMI 52.9
--- NOTE | 2021-09-29 12:45 | DI.US.S_ITS ---
PROCEDURE: US OB <= 14 WEEKS FETUS INDICATIONS: Dating and viability OUTSIDE/PRIOR DATING DATA: Last menstrual period (LMP): 07/03/2021. LMP-based estimated date of delivery (SU): 04/09/2022. First dating scan (date and location): 09/29/2021. Estimated date of delivery (SU) from first dating scan: 04/09/2022. The calculations are made using the ultrasound derived SU of 04/09/2022. TECHNIQUE: Real-time scanning was performed of the fetus and maternal pelvic organs, with image documentation. Endovaginal scanning was also performed to better visualize the fetus and maternal ovaries. COMPARISON: None. FINDINGS: Embryo: Mccomb-rump length 6.2 centimeters. Heart rate: 160 beats per minute Maternal organs: Left ovary normal. Right ovary not identified. IMPRESSION: Single live intrauterine gestation with estimated gestational age 12 weeks 4 days. We strive to produce accurate, complete, and clear reports of imaging services. To assist us in improving patient care, this report was composed using standard report templates and voice recognition software. Therefore, it may contain abnormal punctuation, insertions and/or omissions. Occasional wrong-word or sound-alike substitutions may occur. Though we review the report and make efforts to correct it, we do recommend that the report be read carefully in proper context to recognize any text inaccuracies. Dictated by: Lit Obando M.D. on 09/29/2021 at 13:47 Approved by: Lit Obando M.D. on 09/29/2021 at 13:49
[2021-09-29 13:40] LABS: Add Manual Diff / Slide Review NO; Basophils Absolute Auto 0 /uL (0-100); Basophils Percent Auto 0.6 % (0-2); Eosinophils Absolute Auto 200 /uL (0-450); Eosinophils Percent Auto 2.8 % (2-4); Hematocrit 35.1 % (36-46); Hemoglobin 12.1 g/dL (12.0-16.0); Lymphocytes Absolute Auto 1900 /uL (1100-4500); Lymphocytes Percent Auto 25.4 % (25-40); Mean Corpuscular HGB Conc 34.5 % (30-36); Mean Corpuscular Hemoglobin 30.2 PG (26-34); Mean Corpuscular Volume 87.6 fL (80-100); Monocytes Absolute Auto 300 /uL (0-900); Monocytes Percent Auto 4.5 % (3-14); Neutrophils Absolute Auto 5000 /uL (1500-7000); Neutrophils Percent Auto 66.7 % (50-75); Platelet Count 212 X10^3/uL (150-400); Red Blood Cell Count 4.01 X10^6/uL (4.0-5.2); White Blood Cell Count 7.5 X10^3/uL (4.5-11.0)
[2021-09-30 03:36] LABS: RPR Screen Non Reactive (Non Reactive)
[2021-09-30 08:53] LABS: Varicella IgG Antibody 425 index (Immune >165)
[2021-10-01 16:37] LABS: Hepatitis B Surface Antigen NEGATIVE s/c (NEGATIVE); Rubella Antibody IgG 6.3 IU/mL (>15)
[2021-10-01 17:02] LABS: HIV 1 & 2 Ab/Ag 4th Gen Combo NEGATIVE (NEGATIVE); Hep C Virus Ab w/Reflex Quant NEGATIVE s/c (NEGATIVE)
== END ==
PROVIDERS: PCP Family Medicine; Referring Provider Obstetrics & Gynecology; Visit Provider Obstetrics & Gynecology
DX: Z34.81 Encounter for supervision of other normal pregnancy, first trimester (principal); Z3A.12 12 weeks gestation of pregnancy
CPT/HCPCS: 36415; 76801; 76817; 80055; 86787; 86803; 86850; 86900; 86901; 87389

== ENCOUNTER → 2021-11-18 12:49 | Outpatient (CLI) | payer OTHER, MEDICAID, SELFPAY ==
[2020-10-01 18:13] VITALS: BMI 52.9
[2021-11-18 13:01] LABS: Appearance Urine UA CLEAR; Bilirubin Urine UA NEGATIVE (NEGATIVE); Color Urine UA YELLOW; Glucose Urine UA NEGATIVE (Negative); Ketones Urine UA NEGATIVE (NEGATIVE); Leukocyte Esterase Urine UA NEGATIVE (NEGATIVE); Nitrite Urine UA NEGATIVE (Negative); Occult Blood Urine UA NEGATIVE (Negative); Protein Urine UA NEGATIVE (Negative); Urobilinogen Urine UA 0.2 E.U./dL (0.2)
[2021-11-18 13:02] LABS: pH Urine UA 7.5 (4.5-8.0)
== END ==
PROVIDERS: PCP Family Medicine; Visit Provider Obstetrics & Gynecology
DX: Z34.81 Encounter for supervision of other normal pregnancy, first trimester (principal)
CPT/HCPCS: 81003; 87086

== ENCOUNTER → 2021-11-27 11:57 | Outpatient (CLI) | payer OTHER, MEDICAID, SELFPAY ==
[2020-10-01 18:13] VITALS: BMI 52.9
--- NOTE | 2021-11-27 12:00 | DI.US.S_ITS ---
PROCEDURE: US OB >= 14 WEEKS FETUS INDICATIONS: 20 WEEK ANATOMY SCAN OUTSIDE/PRIOR DATING DATA: Last menstrual period (LMP): 07/03/2021. LMP-based estimated date of delivery (SU): 04/09/2022. First dating scan (date and location): 09/29/2021. Estimated date of delivery (SU) from first dating scan: 04/09/2022. TECHNIQUE: Real-time scanning was performed of the fetus, with image documentation and biometric measurements. Endovaginal scanning: No COMPARISON: [facility], , OB >= 14 WEEKS FETUS, 09/17/2020, 12:10. FINDINGS: General: A single living intrauterine gestation is present. Presentation: Breech. Placenta: Placental position is posterior , without previa. Amniotic fluid index: 17 cm, normal range is 5-24 cm. heart rate: 157 beats per minute. Maternal cervical canal: 5.1 cm long. Normal lower limit is 2.5 cm. biometrics: Biparietal diameter: 48 mm; 20 weeks 4 days Head circumference: 185 mm; 20 weeks 6 days Abdominal circumference: 167 mm; 21 weeks 5 days Femur length: 34 mm; 20 weeks 6 days Estimated gestational age by initial OB ultrasound: 21 weeks 0 days Composite gestational age from present scan: 21 weeks 0 days Estimated weight and percentile: 409 g, which is the 58th percentile for gestational age Anatomic survey: Limited by maternal body habitus. Neuro: Limited evaluation Nuchal skin fold: Limited evaluation Face: Not well seen Spine: No evidence for spina bifida. Heart: Not well seen Diaphragm: Diaphragm is intact. Stomach: Left-sided stomach is present. Kidneys: Not well seen Cord: 3-vessel cord has orthotopic insertion. Bladder: Normal in size. Extremities: Right upper extremity is within normal limits. Remaining extremities are not well seen. IMPRESSION: 1. Single living intrauterine gestation. 2. Limited survey of anatomy as above. We strive to produce accurate, complete, and clear reports of imaging services. To assist us in improving patient care, this report was composed using standard report templates and voice recognition software. Therefore, it may contain abnormal punctuation, insertions and/or omissions. Occasional wrong-word or sound-alike substitutions may occur. Though we review the report and make efforts to correct it, we do recommend that the report be read carefully in proper context to recognize any text inaccuracies. Dictated by: Andrez Marino M.D. on 11/27/2021 at 15:32 Transcribed by: BISHNU on 11/27/2021 at 15:35 Approved by: Andrez Marino M.D. on 11/27/2021 at 17:01
== END ==
PROVIDERS: PCP Family Medicine; Referring Provider Obstetrics & Gynecology; Visit Provider Obstetrics & Gynecology
DX: Z34.82 Encounter for supervision of other normal pregnancy, second trimester (principal); Z3A.21 21 weeks gestation of pregnancy
CPT/HCPCS: 76811

== ENCOUNTER → 2022-01-12 08:37 | Outpatient (CLI) | payer OTHER, MEDICAID, SELFPAY ==
[2020-10-01 18:13] VITALS: BMI 52.9
[2022-01-12 11:57] LABS: Hematocrit 32.2 % (36-46); Hemoglobin 11.1 g/dL (12.0-16.0)
[2022-01-12 11:59] LABS: GTT (PREG) 1 Hour PP 50gm Dose 92 mg/dL (76-139)
== END ==
PROVIDERS: PCP Family Medicine; Referring Provider Obstetrics & Gynecology; Visit Provider Obstetrics & Gynecology
DX: Z34.82 Encounter for supervision of other normal pregnancy, second trimester (principal); Z3A.23 23 weeks gestation of pregnancy
CPT/HCPCS: 36415; 82950; 85014; 85018

== ENCOUNTER → 2022-01-26 09:58 | Outpatient (CLI) | payer OTHER, MEDICAID, SELFPAY ==
[2020-10-01 18:13] VITALS: BMI 52.9
[2022-01-26 15:28] LABS: Urine N gonorrhoeae NOT DETECTED
[2022-01-26 15:42] LABS: Urine Chlamydia NOT DETECTED
== END ==
PROVIDERS: PCP Family Medicine; Visit Provider Obstetrics & Gynecology
DX: Z34.03 Encounter for supervision of normal first pregnancy, third trimester (principal); Z3A.29 29 weeks gestation of pregnancy
CPT/HCPCS: 87491; 87591

== ENCOUNTER → 2022-03-09 11:11 | Outpatient (CLI) | payer OTHER, MEDICAID, SELFPAY ==
[2020-10-01 18:13] VITALS: BMI 52.9
[2022-03-10 14:41] LABS: Strep Grp B PCR NEG for Grp B Strep
== END ==
PROVIDERS: PCP Family Medicine; Visit Provider Obstetrics & Gynecology
DX: Z34.83 Encounter for supervision of other normal pregnancy, third trimester (principal); Z3A.35 35 weeks gestation of pregnancy
CPT/HCPCS: 87653

== ENCOUNTER 2022-03-09 16:06 | Observation (INO) | payer OTHER, MEDICAID, SELFPAY ==
[2020-10-01 18:13] VITALS: BMI 52.9
--- NOTE | 2022-03-09 16:12 | DI.US.S_ITS ---
PROCEDURE: US OB BIOPHYSICAL PROFILE INDICATIONS: polyhydramnios OUTSIDE/PRIOR DATING DATA: Last menstrual period (LMP): 07/03/2021. LMP-based estimated date of delivery (SU): 04/09/2022. First dating scan (date and location): 09/29/2021. Estimated date of delivery (SU) from first dating scan: 04/09/2022. TECHNIQUE: Real-time scanning was performed of the fetus for biophysical profile, with image documentation. Color and pulse Doppler interrogation was also performed of the umbilical artery near its insertion into the placenta. COMPARISON: [facility] Ultrasound, US, US OB GROWTH, 03/09/2022, 14:15. FINDINGS: General: A single living intrauterine gestation is present. Presentation: Vertex. Placenta: Placental position is fundal, without previa. Amniotic fluid index: 51.0 cm, normal range is 5-24 cm. Single deepest vertical pocket is 16.3 cm. heart rate: 152 beats per minute. Maternal cervical canal: Not well seen. Clinically estimated gestational age: 35 weeks 4 days Biophysical profile: Tone: 2 points. Movement: 2 points. Respiration: 2 points. Largest pocket of fluid: 0 points. Thickening at the lower midline maternal abdominal wall. No hyperemia demonstrated. IMPRESSION: 1. Martinez living intrauterine at 35 weeks 4 days based on prior dating. 2. Normal placenta. Polyhydramnios. Largest pocket 16.3 cm. AMIRA 51 cm. 3. Thickened lower maternal abdominal wall. No hyperemia. We strive to produce accurate, complete, and clear reports of imaging services. To assist us in improving patient care, this report was composed using standard report templates and voice recognition software. Therefore, it may contain abnormal punctuation, insertions and/or omissions. Occasional wrong-word or sound-alike substitutions may occur. Though we review the report and make efforts to correct it, we do recommend that the report be read carefully in proper context to recognize any text inaccuracies. Dictated by: Colin Petersen M.D. on 03/09/2022 at 18:17 Approved by: Colin Petersen M.D. on 03/09/2022 at 18:23
--- NOTE | 2022-03-09 17:27 | P.TNLD_ITS ---
Visit Information Visit Information Date of evaluation: 03/09/22 Primary OB Provider: Yg Donis Reason for Evaluation: Yes non-stress test Comments/Additional reasons for admission: Tayla presents today for NST and BPP after a rgowth US performed at [facility] earlier today showed an AMIRA of 32.03 cm with the infant in the transverse lie, EFW 3108 gms (86.9 %'tile). She's doing well w/o contractions and she states her baby is active. Vital Signs Vital Signs: 141/95, 146/89, 139/86, 135/88, 141/85, 131/67, 127/76 T: 37.0 P: 96 PFSH Medical History (Updated 03/09/22 @ 18:39 by Yg Donis MD) ADD (attention deficit disorder) AMA (advanced maternal age) multigravida 35+ Anemia Anxiety Asthma section wound complication Chemical peritonitis following a procedure Gallstones Gestational hypertension Migraine Morbid obesity Ovarian cyst Pelvic infection (~10/01/20) Pneumonia Postoperative pain Surgical History (Updated 11/18/21 @ 11:47 by Yg Donis MD) H/O abdominal surgery History of appendectomy History of bilateral breast reduction surgery History of carpal tunnel surgery of right wrist (~2014) Hx of tonsillectomy (~2016) Previous section complicating S/P primary low transverse (~08/10/12) S/P wisdom tooth extraction (~2008) Family History Mother History of prediabetes Cancer Breast cancer AA (alcohol abuse) Ovarian cyst Father Joint replaced Sepsis Grandmother Head injury due to trauma Smoker Obesity Wheelchair bound Grandfather Cancer Colon cancer Grandmother Alzheimers disease Grandfather Head injury due to trauma AA (alcohol abuse) Sister Ovarian cyst Family/Other AA (alcohol abuse) Family/Other AA (alcohol abuse) Drug addiction Family estrangement Colon cancer Social History marital status: unmarried,living together number of children: 2 household members: significant other and children lives independently: Yes housing: house pets and animals: Yes (1 dog and 1 kitten, not managing litter box) 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 current occupational exposures/hazards: No special tiff needs: No seatbelt use: always water heater temp set < 120 deg: No working smoke detector in home: Yes fire extinguisher in home: Yes carbon monox detector in home: Yes firearms in home: Yes firearms unloaded and locked: Yes do you feel safe at home: Yes Smoking Status: Never smoker second hand exposure: No alcohol intake: former (pre- : very rare use) substance use type: does not use during the past year weight has: decreased > 10 lbs (intentional) well-balanced diet: daily or most days daily servings fruits/ve-4 caffeine: Yes (rarely and only in small amounts) Type(s) of exercise: walking Exam HENMT Head: normal to inspection, normocephalic and atraumatic Eyes General: appearance normal, both eyes and all related structures Resp Effort & Inspection: normal respiratory effort and able to speak in complete sentences GI Inspection: large pannus and other (Peu d'orange changes of the inferior pannus) Palpation: soft and no hepatosplenomegaly Uterus Location (Fundal Height): 42 Presentation: transverse/shoulder Estimated Weight (lbs): 6 Extrem Right lower extremity: normal to inspection Objective Imaging OB US/BPP: Radiologist's impression: PROCEDURE:? US OB BIOPHYSICAL PROFILE ? INDICATIONS:? polyhydramnios ? OUTSIDE/PRIOR DATING DATA:? Last menstrual period (LMP):? 07/03/2021.? LMP-based estimated date of delivery (SU):? 04/09/2022.? First dating scan (date and location):? 09/29/2021.? Estimated date of delivery (SU) from first dating scan:? 04/09/2022. ? TECHNIQUE:? Real-time scanning was performed of the fetus for biophysical profile, with image documentation.? Color and pulse Doppler interrogation was also performed of the umbilical artery near its insertion into the placenta.? ? COMPARISON:? [facility] Ultrasound, US, US OB GROWTH, 03/09/2022, 14:15. ? FINDINGS:? ? General:? A single living intrauterine gestation is present.? Presentation:? Vertex.? Placenta:? Placental position is fundal, without previa.? ? Amniotic fluid index:? 51.0 cm, normal range is 5-24 cm.? Single deepest vertical pocket is 16.3 cm. heart rate:? 152 beats per minute.? Maternal cervical canal:? Not well seen. ? ? Clinically estimated gestational age:? 35 weeks 4 days ? Biophysical profile:? Tone:? 2 points. Movement:? 2 points. Respiration:? 2 points. Largest pocket of fluid:? 0 points.? ? Thickening at the lower midline maternal abdominal wall.? No hyperemia demonstrated. ? ? IMPRESSION:? 1. Martinez living intrauterine at 35 weeks 4 days based on prior dating. ? 2. Normal placenta.? Polyhydramnios.? Largest pocket 16.3 cm. AMIRA 51 cm. ? 3. Thickened lower maternal abdominal wall.? No hyperemia. Labs Result Diagrams: 03/09/22 17:40 Evaluation Evaluation Baseline heart rate: 150 Variability: Moderate (11-25) Comments: Unable to keep the baby on the monitor for NST. BPP /8 (AMIRA 51) Diagnosis, Plan/Disposition Plan/Disposition Plan: PEC/PIH Labs Case reviewed with [facility] on-call Dr. Nerissa Hernandez who agrees patient is a good candidate for transfer of care for delivery and proactive OP management of her hydramnios. Referral written and Dr. Hernandez will expedite at her end with the goal of Tayla being seen there NLT 03/11/2022. Precautionary symptoms reviewed. OB Disposition: home
[2022-03-09 18:08] LABS: Alanine Aminotransferase 21 IU/L (<35); Albumin 3.2 g/dL (3.5-5.0); Albumin Globulin Ratio 1.1 (1.0-2.8); Alkaline Phosphatase 114 U/L (38-126); Aspartate Aminotransferase 21 IU/L (14-36); Bilirubin Total 0.2 mg/dL (0.2-1.3); Bilirubin Unconjugated 0.3 mg/dL (0.0-1.1); Globulin 2.9 g/dL (1.7-4.1); HEMOLYSIS < 15 (0-50); Total Protein 6.1 g/dL (6.3-8.2); Uric Acid 6.1 mg/dL (2.5-6.2)
[2022-03-09 19:28] LABS: Add Manual Diff / Slide Review NO; Basophils Absolute Auto 0 /uL (0-100); Basophils Percent Auto 0.4 % (0-2); Eosinophils Absolute Auto 100 /uL (0-450); Eosinophils Percent Auto 1.7 % (2-4); Hematocrit 32.3 % (36-46); Hemoglobin 10.8 g/dL (12.0-16.0); Lymphocytes Absolute Auto 1400 /uL (1100-4500); Lymphocytes Percent Auto 19.4 % (25-40); Mean Corpuscular HGB Conc 33.6 % (30-36); Mean Corpuscular Volume 89.3 fL (80-100); Monocytes Absolute Auto 400 /uL (0-900); Monocytes Percent Auto 5.3 % (3-14); Neutrophils Absolute Auto 5200 /uL (1500-7000); Neutrophils Percent Auto 73.2 % (50-75); Platelet Count 150 X10^3/uL (150-400); Red Blood Cell Count 3.62 X10^6/uL (4.0-5.2); Red Cell Distribution Width 14.4 % (11.6-14.8); White Blood Cell Count 7.1 X10^3/uL (4.5-11.0)
[2022-03-09 19:45] LABS: Creatinine Urine Random 105.7 mg/dL
[2022-03-09 19:47] LABS: Protein (Total) Urine Random < 5 mg/dL (0-12); Protein Creatinine Ratio Urine 0.04 GRAM/24H
== END 2022-03-09 18:05 | disposition home or self-care (01) ==
PROVIDERS: Admitting Provider Obstetrics & Gynecology; PCP Family Medicine; Referring Provider Obstetrics & Gynecology; Visit Provider Obstetrics & Gynecology
DX: O41.03X0 Oligohydramnios, third trimester, not applicable or unspecified (principal); Z3A.35 35 weeks gestation of pregnancy
CPT/HCPCS: 59025; 76819; 80076; 82570; 84156; 84550; 85025; G0378; G0379

== ENCOUNTER 2022-03-10 00:54 | Inpatient (IN) | payer OTHER, MEDICAID, SELFPAY ==
[2020-10-01 18:13] VITALS: BMI 52.9
[2022-03-10] VITALS (8 sets, daily range): BP systolic 109–145; BP diastolic 63–81; PULSE 75–99; RESP 12–22; TEMP 36.7–36.8; O2SAT 96–99
--- NOTE | 2022-03-10 01:48 | P.HPOB_ITS ---
OB HPI Date/Time Date of admission: 03/10/22 Date Patient Seen: 03/10/22 Time Patient Seen: 01:49 History of Present Condition Chief complaint: IUP, 35+5, prior x 2, labor : 4 Para: 2 Estimated Date of Delivery: 04/09/22 Estimated Gestational Age (weeks): 35+5 Narrative: Tayla Verdin is a 36 year old A1 admitted now at 35+ 5 weeks gestational age with regular uterine contractions every 4 minutes and light spotting. Patient has had 2 prior sections with her last complicated by postoperative lipoid peritonitis. Patient has been measuring size greater than dates and this is become dramatically more so in the last couple of weeks with ultrasound today showing AMIRA of 51 cm with her in the 87th percentile insofar as estimated weight. She is scheduled to be seen at [facility] on 03/11/2022 and delivery was planned there but an hour prior to admission she started having active contractions and light spotting. Continues to every 4-5 minutes with light spotting and possible leakage amniotic fluid therefore not considered candidate for transfer to [facility] for delivery as originally planned. course has been notable for morbid obesity and size greater than dates in the 3rd trimester. In addition she has been anemic requiring iron transfusions in the 3rd trimester. GBS status uncertain as that result is pending from 03/09/2022. Patient requests sterilization and has executed [facility] form 687 on 02/09/2022. Indications Indication for induction OB: other (Polyhydramnios) Operative indications ( section): malpresentation History of Present care: good care Dating criteria: LMP confirmed by 1st trimester US Ultrasounds: normal 1st trimester US, normal mid trimester US and abnormal US findings (Polyhydramnios, transverse lie) Obstetrical complications: labor and other (Polyhydramnios) Medical complications: other (Morbid obesity) Preadmission Labs Blood type: A (+) positive -: Antibody screen: negative, GBS status: unknown, HBsAG: negative, HIV: negative and RPR/VDLR: negative -: Chlamydia screen: not detected and Gonorrhea screen: not detected -: Rubella: not immune and Varicella: immune HCT: 32.3 HCAB: negative PAP: Normal Quad screen: Abnormal (Declined) Cell-free DNA: Declined 1 hr GTT: 92 Prior (ies) History: CS x 2 PFSH Medical History (Updated 03/09/22 @ 18:39 by Yg Donis MD) ADD (attention deficit disorder) AMA (advanced maternal age) multigravida 35+ Anemia Anxiety Asthma section wound complication Chemical peritonitis following a procedure Gallstones Gestational hypertension Migraine Morbid obesity Ovarian cyst Pelvic infection (~10/01/20) Pneumonia Postoperative pain Surgical History (Updated 11/18/21 @ 11:47 by Yg Donis MD) H/O abdominal surgery History of appendectomy History of bilateral breast reduction surgery History of carpal tunnel surgery of right wrist (~2014) Hx of tonsillectomy (~2016) Previous section complicating S/P primary low transverse (~08/10/12) S/P wisdom tooth extraction (~2008) Family History Mother History of prediabetes Cancer Breast cancer AA (alcohol abuse) Ovarian cyst Father Joint replaced Sepsis Grandmother Head injury due to trauma Smoker Obesity Wheelchair bound Grandfather Cancer Colon cancer Grandmother Alzheimers disease Grandfather Head injury due to trauma AA (alcohol abuse) Sister Ovarian cyst Family/Other AA (alcohol abuse) Family/Other AA (alcohol abuse) Drug addiction Family estrangement Colon cancer Social History marital status: unmarried,living together number of children: 2 household members: significant other and children lives independently: Yes housing: house pets and animals: Yes (1 dog and 1 kitten, not managing litter box) 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 current occupational exposures/hazards: No special tiff needs: No seatbelt use: always water heater temp set < 120 deg: No working smoke detector in home: Yes fire extinguisher in home: Yes carbon monox detector in home: Yes firearms in home: Yes firearms unloaded and locked: Yes do you feel safe at home: Yes Smoking Status: Never smoker second hand exposure: No alcohol intake: former (pre- : very rare use) substance use type: does not use during the past year weight has: decreased > 10 lbs (intentional) well-balanced diet: daily or most days daily servings fruits/ve-4 caffeine: Yes (rarely and only in small amounts) Type(s) of exercise: walking Meds Home Medications and Allergies Home Medications Medication Instructions Recorded Confirmed Type prenat.vits,amna,meo-ftjh-aetca 1 tab PO DAILY 04/15/20 03/09/22 History cholecalciferol (vitamin D3) 50 8,000 unit PO DAILY 09/10/21 03/09/22 History mcg (2,000 unit) capsule ferrous sulfate 300 mg (60 mg 300 mg PO DAILY 09/10/21 03/09/22 History iron)/5 mL oral liquid sumatriptan succinate 50 mg tablet 50 mg PO .COMPLEX #10 tabs 12/08/21 03/09/22 Rx (Imitrex) umkzqiiigo-hbntpqihmqhzi-lvyiejtu 2 tab PO Q6H PRN pain #30 tabs 02/03/22 03/09/22 Rx 50 mg-325 mg-40 mg tablet Allergies Allergy/AdvReac Type Severity Reaction Status Date / Time amoxicillin Allergy Severe Major Hives Verified 03/09/22 11:19 Penicillins Allergy Severe Severe Verified 03/09/22 11:19 Hives Review of Systems Review of Systems Narrative: Problem-specific ROS positives included in HPI OB Exam HENMT Head: normal to inspection, normocephalic and atraumatic Eyes General: appearance normal, both eyes and all related structures Resp Effort & Inspection: normal respiratory effort and able to speak in complete sentences Auscultation: clear to auscultation bilaterally Cardio Rate: regular rate Rhythm: regular rhythm Heart Sounds: S1 normal, S2 normal and no murmurs Extremities Lower extremity: Yes normal to inspection GI Inspection: normal to inspection Palpation: Yes soft and Yes no hepatosplenomegaly Uterus Location (Fundal Height): 4 Presentation: transverse/shoulder Estimated Weight (lbs): 7 Assessment and Plan Assessment and Plan Assessment and Plan narrative: ASSESSMENT 1. Intrauterine , 35+5 weeks EGA 2. Transverse lie 3. Prior x 2 4. Request for sterilization 5. Morbid obesity 6. Polyhydramnios PLAN 1. Admit for repeat section and bilateral salpingectomy if technically feasible. 2. See admission orders
[2022-03-10 01:54] LABS: Add Manual Diff / Slide Review NO; Basophils Absolute Auto 0 /uL (0-100); Basophils Percent Auto 0.2 % (0-2); Eosinophils Absolute Auto 100 /uL (0-450); Eosinophils Percent Auto 1.7 % (2-4); Hematocrit 33.7 % (36-46); Hemoglobin 11.3 g/dL (12.0-16.0); Lymphocytes Absolute Auto 1700 /uL (1100-4500); Lymphocytes Percent Auto 21.2 % (25-40); Mean Corpuscular HGB Conc 33.5 % (30-36); Mean Corpuscular Hemoglobin 30.1 PG (26-34); Mean Corpuscular Volume 89.8 fL (80-100); Monocytes Absolute Auto 400 /uL (0-900); Neutrophils Absolute Auto 5700 /uL (1500-7000); Neutrophils Percent Auto 71.9 % (50-75); Platelet Count 146 X10^3/uL (150-400); Red Blood Cell Count 3.76 X10^6/uL (4.0-5.2); Red Cell Distribution Width 14.5 % (11.6-14.8); White Blood Cell Count 7.9 X10^3/uL (4.5-11.0)
[2022-03-10 02:06] LABS: COVID19 -Nasal RAPID Negative (Negative)
--- NOTE | 2022-03-10 02:06 | PM.PREOP ---
Pre-operative Note COVID-19 COVID-19 status: Negative Result date/Date tested (Pos, Neg/Pending): 03/10/22 Criteria for continued procedure: Non-surgical alternatives not available or appropriate per current SOC Interval Note History & Physical reviewed/Exam performed by Physician: Yes Changes to H&P: No
[2022-03-10] MEDS: CEFAZOLIN VIAL 3 GM in SODIUM CHLORIDE 0.9% 100 ML IV (02:35)
[2022-03-10] MEDS: TRANEXAMIC ACID 1,000 MG in SODIUM CHLORIDE 0.9% 100 ML 200 MG IV ×2 (03:35→08:06)
[2022-03-10] MEDS: LACTATED RINGERS 1,000 ML 100 ML IV ×3 (03:46→11:36)
--- NOTE | 2022-03-10 03:58 | SUR.OPER ---
viable baby girl born at 031, placenta delivered at 031, cord blood and placenta delivered to OB per Gisselle Treviño RN to OB SAIMA Reis, FHT prior to case 150
--- NOTE | 2022-03-10 04:54 | P.OP_ITS ---
Operative Date/Time/Diagnoses Date of procedure: 03/10/22 Time of procedure: 02:30 Pre-op diagnosis: Intrauterine gestation, billings, 35+5 weeks EGA Prior section x 2 Morbid obesity Polyhydramnios Post-op diagnosis: other (YENNY, abdomino-pelvic adhesions) Procedure & Clinicians Procedure: Reapeat section Same procedure as scheduled: Yes Indications: Tayla is a 36 yo A1 at 35+5 presenting in labor w/ two prior sections and recently diagnosed polyhydramnios admitted for repeat section in labor. Patient expresses desire for elective sterilization if technically feasible given that extensive adhesions were noted at the time of her last and that procedure was followed by development of lipoid peritonitis. Surgeon: Yg Donis Global Product Manager: Dayanara Jeffries Reason for Global Product Manager: Global Product Manager required for the safe, effective, and timely completion of this surgery. Anesthesia Type: Spinal Operative Notes Findings: Viable female infant BW 3080 gms (6 lbs. 12.6 oz.), Apgars 3/8/9, delivered from the vertex presentation. Upon entry into the abdominal cavity, dense adhesions involving the left side of the anterior surface of the uterus and the anterior abdominal wall were encountered which required sharp and blunt dissection to be able to perform hysterotomy. Unable to visualize left adnexa due to adhesions. Right adnexa visible and also involved with filmy adhesions but otherwise normal for the gravid condition. Closure Type: primary Specimen(s): cord blood Intraoperative meds administered: Ketorolac and Pitocin Applied: Catheter Estimated Blood Loss (mL): 1,000 Blood products transfused: none Procedure in detail: With her informed written consent, the patient was taken to the operating room and placed in the supine position for a repeat section procedure, for the indication(s) above. The abdomen was prepped and draped in the usual manner for section and a pre-surgical timeout was taken per [facility] OR protocol. Once effective anesthesia was confirmed, a 15 cm transverse Pfannenstiel incision was made in the skin and taken down through the subcuta neous tissues to the deep fascia. The deep fascia was incised transversely, the rectus abdominal eyes bluntly and sharply, and the peritoneal cavity entered in the midline with considerable difficulty. The left side of the anterior uterus was adherent to the abdominal wall and sharp lysis of those adhesions was required to afford exposure of the LISA. The lower uterine segment was visualized and the position/presentation palpated. A transverse hysterotomy was performed near the midline and extended with cephalo-caudal traction. Amniotomy revealed clear fluid. The incision was extended bilaterally with digital traction and the infant was delivered without difficulty from the vertex presentation. The infant was not vigorous and therefore delayed cord clamping was not performed. A portion of cord was obtained for cord gas studies. The placenta was delivered intact using gentle cord traction and fundal massage.The uterine cavity was then cleared of any clot/debris first with a sloppy wet lap tape followed by a dry lap tape. Ring forceps were then applied to the angles and the midline of the incised LISA. A primary closure of the uterus was then accomplished with #1 CCGS in a running interlocking stitch followed by a 2nd layer of #1 CCGS in a running interlocking imbricating stitch. Several additional mattress/figure of eight sutures using #1 CCGS were required to render hemostatic the extensive area of raw surface involving the left anterior surface of the uterus which had been adherent to the anterior abdominal wall. Once the area was rendered hemostatic, surgifoam was applied to the area and pressure maintained for another 5 minutes or so. Reinspection confirmed the area to be hemostatic and preparations were made for abdominal closure with correct counts noted. Once pelvic hemostasis was assured, the fascia was closed with #1 Vicryl in a running stitch initiated at both angles and tying separately near the midline. The subcutaneous tissues w ere reapproximated with 2-0 vicryl in a running stitch. The skin edges were then brought together with 4-0 Monocryl in a subcuticular closure and the incision was reinforced with 1 Steri-Strips. An appropriate compression dressing was applied and the patient transferred to PACU for recovery and subsequent transfer to the Center for recuperation. Complications: none Baby 1: Gender: Female Presentation: vertex Position: Left Occiput Anterior Placental Delivery Description: Spontaneous and Expressed Cord Vessel Description: 3 Vessels score (1 min): 3 score (5 min): 8 score (10 min): 9 weight: 6 lb 12.644 oz Post-operative Condition: stable Disposition: PACU Aftercare: routine postop
[2022-03-10] MEDS: ONDANSETRON 8 MG in SODIUM CHLORIDE 0.9% 50 ML 216 MG IV (04:58)
[2022-03-10] MEDS: OXYTOCIN PREMIX 30 UNIT/500 ML PLAST..BAG 50 UNIT IV (05:35)
[2022-03-10] MEDS: METOCLOPRAMIDE 10 MG/2 ML INJ IV (06:12)
[2022-03-10] MEDS: ACETAMINOPHEN 325 MG TABLET 650 MG PO ×3 (09:38→23:22)
[2022-03-10 10:12] LABS: Add Manual Diff / Slide Review NO; Basophils Absolute Auto 0 /uL (0-100); Basophils Percent Auto 0.1 % (0-2); Eosinophils Absolute Auto 100 /uL (0-450); Eosinophils Percent Auto 0.8 % (2-4); Hematocrit 27.6 % (36-46); Hemoglobin 9.4 g/dL (12.0-16.0); Lymphocytes Absolute Auto 1300 /uL (1100-4500); Lymphocytes Percent Auto 12.4 % (25-40); Mean Corpuscular HGB Conc 34.1 % (30-36); Mean Corpuscular Hemoglobin 30.5 PG (26-34); Mean Corpuscular Volume 89.5 fL (80-100); Monocytes Absolute Auto 500 /uL (0-900); Monocytes Percent Auto 5.1 % (3-14); Neutrophils Absolute Auto 8200 /uL (1500-7000); Neutrophils Percent Auto 81.6 % (50-75); Platelet Count 129 X10^3/uL (150-400); Red Blood Cell Count 3.09 X10^6/uL (4.0-5.2); Red Cell Distribution Width 14.4 % (11.6-14.8); White Blood Cell Count 10.1 X10^3/uL (4.5-11.0)
[2022-03-10] MEDS: ONDANSETRON 8 MG in SODIUM CHLORIDE 0.9% 100 ML 208 MG IV (11:36)
[2022-03-10 16:01] LABS: Add Manual Diff / Slide Review NO; Basophils Absolute Auto 0 /uL (0-100); Basophils Percent Auto 0.2 % (0-2); Eosinophils Absolute Auto 0 /uL (0-450); Eosinophils Percent Auto 0.3 % (2-4); Hematocrit 26.4 % (36-46); Lymphocytes Absolute Auto 900 /uL (1100-4500); Lymphocytes Percent Auto 10.5 % (25-40); Mean Corpuscular HGB Conc 34.1 % (30-36); Mean Corpuscular Hemoglobin 30.3 PG (26-34); Mean Corpuscular Volume 88.9 fL (80-100); Monocytes Absolute Auto 500 /uL (0-900); Monocytes Percent Auto 5.9 % (3-14); Neutrophils Absolute Auto 6900 /uL (1500-7000); Neutrophils Percent Auto 83.1 % (50-75); Platelet Count 112 X10^3/uL (150-400); Red Blood Cell Count 2.97 X10^6/uL (4.0-5.2); Red Cell Distribution Width 14.2 % (11.6-14.8); White Blood Cell Count 8.3 X10^3/uL (4.5-11.0)
--- NOTE | 2022-03-10 16:35 | P.PNOB_ITS ---
Subjective - OB Subjective Patient comments: no complaints, incisional pain, tolerating diet and flatus present baby status: NICU feeding status: pumping and storing Narrative: Patient's nausea has resolved and she is doing well with minimal lochia Date Patient Seen: 03/10/22 Time Patient Seen: 16:36 Exam Vital Signs (past 8 hours): Oxygen Delivery Method Room Air Const General: cooperative and comfortable Nutritional Appearance: average body habitus Orientation: alert and oriented x3 HENMT Head: normal to inspection, atraumatic and abrasion Ears: hearing grossly normal bilaterally Face and sinus: face symmetric Eyes General: appearance normal, both eyes and all related structures Conjunctivae: conjunctivae normal Sclera: sclerae normal EOM: EOM intact bilaterally Neck Neck: normal visual inspection Resp Effort & Inspection: normal respiratory effort and able to speak in complete sentences GI Inspection: normal to inspection and incision (Surgical dressing clean and dry) Palpation: soft, no hepatosplenomegaly and tender (Mild, diffuse postsurgical tenderness) External Female Exam: other (No significant bleeding noted) Extrem General: no calf tenderness Psych Appearance: grossly normal Mental Status: mental status grossly normal Speech and Movement: speech and movement normal Mood: congruent mood Affect: normal affect Attitude: cooperative Thought Process: normal Thought Content: normal Judgment: judgment good Objective Labs Result Diagrams: 03/10/22 15:42 Labs: Laboratory Results - last 24 hr 03/10/22 03/10/22 03/10/22 01:30 01:30 01:48 WBC 7.9 RBC 3.76 L Hgb 11.3 L Hct 33.7 L MCV 89.8 MCH 30.1 MCHC 33.5 RDW 14.5 Plt Count 146 L Neut % (Auto) 71.9 Lymph % (Auto) 21.2 L [place] % (Auto) 5.0 Eos % (Auto) 1.7 L Baso % (Auto) 0.2 Neut # (Auto) 5700 Lymph # (Auto) 1700 [place] # (Auto) 400 Eos # (Auto) 100 Baso # (Auto) 0 SARS-CoV-2 (PCR) Negative Blood Type A Positive Antibody Screen Negative Crossmatch See Detail 03/10/22 03/10/22 08:20 15:42 WBC 10.1 8.3 RBC 3.09 L 2.97 L Hgb 9.4 L 9.0 L Hct 27.6 L 26.4 L MCV 89.5 88.9 MCH 30.5 30.3 MCHC 34.1 34.1 RDW 14.4 14.2 Plt Count 129 L 112 L Neut % (Auto) 81.6 H 83.1 H Lymph % (Auto) 12.4 L 10.5 L [place] % (Auto) 5.1 5.9 Eos % (Auto) 0.8 L 0.3 L Baso % (Auto) 0.1 0.2 Neut # (Auto) 8200 H 6900 Lymph # (Auto) 1300 900 L [place] # (Auto) 500 500 Eos # (Auto) 100 0 Baso # (Auto) 0 0 SARS-CoV-2 (PCR) Blood Type Antibody Screen Crossmatch Assessment & Plan Plan day: 0 plan OB: routine postop care Comments: Close observation of serial CBC's due to low pre-op PLT Initiate Lovenox tomorrow AM 0900 See orders Time Spent With Patient Time: Total time spent is greater than 50% in coordination of care (as documented) at patient's floor/unit and/or counseling patient: Time with patient: 15-24 minutes
[2022-03-10] MEDS: IBUPROFEN 600 MG TABLET PO ×2 (17:09→23:21)
[2022-03-10] MEDS: HYDROMORPHONE 4 MG TABLET PO ×2 (19:49→23:21)
[2022-03-11] MEDS: HYDROMORPHONE 4 MG TABLET PO ×2 (02:51→07:21)
[2022-03-11] MEDS: IBUPROFEN 600 MG TABLET PO ×2 (04:45→10:18)
[2022-03-11] MEDS: ACETAMINOPHEN 325 MG TABLET 650 MG PO ×3 (04:46→17:13)
[2022-03-11] MEDS: HYDROMORPHONE 2 MG INJ IV ×3 (04:51→11:30)
[2022-03-11 08:07] LABS: Add Manual Diff / Slide Review NO; Basophils Absolute Auto 0 /uL (0-100); Basophils Percent Auto 0.2 % (0-2); Eosinophils Absolute Auto 100 /uL (0-450); Eosinophils Percent Auto 1.1 % (2-4); Hematocrit 23.7 % (36-46); Hemoglobin 8.1 g/dL (12.0-16.0); Lymphocytes Absolute Auto 1100 /uL (1100-4500); Lymphocytes Percent Auto 14.1 % (25-40); Mean Corpuscular Hemoglobin 30.3 PG (26-34); Mean Corpuscular Volume 89.2 fL (80-100); Monocytes Absolute Auto 500 /uL (0-900); Monocytes Percent Auto 6.1 % (3-14); Neutrophils Absolute Auto 5900 /uL (1500-7000); Neutrophils Percent Auto 78.5 % (50-75); Platelet Count 115 X10^3/uL (150-400); Red Blood Cell Count 2.66 X10^6/uL (4.0-5.2); Red Cell Distribution Width 14.3 % (11.6-14.8); White Blood Cell Count 7.5 X10^3/uL (4.5-11.0)
--- NOTE | 2022-03-11 08:13 | PM.OBPN.1 ---
Subjective - OB Subjective Patient comments: incisional pain and tolerating diet; no flatus present [place] baby status: NICU (Continues to improve and is doing well) [place] feeding status: pumping and storing Narrative: Limited ambulation thus far. Patient experiencing some right upper quadrant pain and incisional pain. Lochia light w/ occasional passage of small clots. No flatus as yet Date Patient Seen: 03/11/22 Time Patient Seen: 08:14 Exam Vital Signs (past 8 hours): Oxygen Delivery Method Room Air Const General: cooperative and comfortable Nutritional Appearance: average body habitus Orientation: alert and oriented x3 HENMT Head: normal to inspection, atraumatic and abrasion Ears: hearing grossly normal bilaterally Face and sinus: face symmetric Eyes General: appearance normal, both eyes and all related structures Conjunctivae: conjunctivae normal Sclera: sclerae normal EOM: EOM intact bilaterally Neck Neck: normal visual inspection Resp Effort & Inspection: normal respiratory effort and able to speak in complete sentences Auscultation: clear to auscultation bilaterally Cardio Rate: regular rate Rhythm: regular rhythm Heart Sounds: S1 normal, S2 normal and no murmurs GI Inspection: normal to inspection and incision (Surgical dressing clean and dry) Palpation: soft, no hepatosplenomegaly and tender (Mild, diffuse postsurgical tenderness) Auscultation: hypoactive bowel sounds External Female Exam: other (No significant bleeding noted) Extrem General: no calf tenderness Psych Appearance: grossly normal Mental Status: mental status grossly normal Speech and Movement: speech and movement normal Mood: congruent mood Affect: normal affect Attitude: cooperative Thought Process: normal Thought Content: normal Judgment: judgment good Objective Labs Result Diagrams: 03/12/22 05:58 Labs: Laboratory Results - last 24 hr 03/10/22 03/10/22 03/11/22 08:20 15:42 06:55 WBC 10.1 8.3 7.5 RBC 3.09 L 2.97 L 2.66 L Hgb 9.4 L 9.0 L 8.1 L Hct 27.6 L 26.4 L 23.7 L MCV 89.5 88.9 89.2 MCH 30.5 30.3 30.3 MCHC 34.1 34.1 34.0 RDW 14.4 14.2 14.3 Plt Count 129 L 112 L 115 L Neut % (Auto) 81.6 H 83.1 H 78.5 H Lymph % (Auto) 12.4 L 10.5 L 14.1 L [place] % (Auto) 5.1 5.9 6.1 Eos % (Auto) 0.8 L 0.3 L 1.1 L Baso % (Auto) 0.1 0.2 0.2 Neut # (Auto) 8200 H 6900 5900 Lymph # (Auto) 1300 900 L 1100 [place] # (Auto) 500 500 500 Eos # (Auto) 100 0 100 Baso # (Auto) 0 0 0 Assessment & Plan Plan day: 1 plan OB: routine postop care Comments: IV Iron sucrose See orders Time Spent With Patient Time: Total time spent is greater than 50% in coordination of care (as documented) at patient's floor/unit and/or counseling patient: Time with patient: 15-24 minutes
[2022-03-11] MEDS: DOCUSATE 100 MG CAPSULE 200 MG PO (08:59)
[2022-03-11] MEDS: ENOXAPARIN 40 MG/0.4 ML SYRINGE SUBCUT (10:13)
[2022-03-11] MEDS: OXYCODONE IR 10 MG TABLET PO ×3 (14:13→20:45)
[2022-03-11 19:05] LABS: Add Manual Diff / Slide Review NO; Basophils Absolute Auto 0 /uL (0-100); Basophils Percent Auto 0.2 % (0-2); Eosinophils Absolute Auto 100 /uL (0-450); Eosinophils Percent Auto 1.3 % (2-4); Hematocrit 23.6 % (36-46); Hemoglobin 8.1 g/dL (12.0-16.0); Lymphocytes Absolute Auto 1000 /uL (1100-4500); Lymphocytes Percent Auto 14.4 % (25-40); Mean Corpuscular HGB Conc 34.3 % (30-36); Mean Corpuscular Hemoglobin 30.5 PG (26-34); Mean Corpuscular Volume 89.1 fL (80-100); Monocytes Absolute Auto 300 /uL (0-900); Monocytes Percent Auto 4.7 % (3-14); Neutrophils Absolute Auto 5800 /uL (1500-7000); Neutrophils Percent Auto 79.4 % (50-75); Platelet Count 128 X10^3/uL (150-400); Red Blood Cell Count 2.65 X10^6/uL (4.0-5.2); Red Cell Distribution Width 14.8 % (11.6-14.8); White Blood Cell Count 7.3 X10^3/uL (4.5-11.0)
[2022-03-11 19:15] LABS: Prothrombin Time 11.8 SECONDS (10.1-12.7)
[2022-03-11 19:18] LABS: PTT Partial Thromboplastin Tim 28 SECONDS (26-36)
[2022-03-11] MEDS: METOCLOPRAMIDE 10 MG/2 ML INJ IV (22:10)
[2022-03-12] MEDS: ACETAMINOPHEN 325 MG TABLET 650 MG PO ×2 (00:35→06:53)
[2022-03-12] MEDS: OXYCODONE IR 10 MG TABLET PO ×4 (00:35→10:27)
[2022-03-12 06:34] LABS: Add Manual Diff / Slide Review NO; Basophils Absolute Auto 0 /uL (0-100); Basophils Percent Auto 0.2 % (0-2); Eosinophils Absolute Auto 100 /uL (0-450); Eosinophils Percent Auto 1.1 % (2-4); Hematocrit 24.4 % (36-46); Hemoglobin 8.2 g/dL (12.0-16.0); Lymphocytes Absolute Auto 1000 /uL (1100-4500); Lymphocytes Percent Auto 11.9 % (25-40); Mean Corpuscular HGB Conc 33.5 % (30-36); Mean Corpuscular Hemoglobin 29.8 PG (26-34); Monocytes Absolute Auto 400 /uL (0-900); Monocytes Percent Auto 5.2 % (3-14); Neutrophils Absolute Auto 6600 /uL (1500-7000); Neutrophils Percent Auto 81.6 % (50-75); Platelet Count 149 X10^3/uL (150-400); Red Blood Cell Count 2.74 X10^6/uL (4.0-5.2); Red Cell Distribution Width 14.7 % (11.6-14.8); White Blood Cell Count 8.1 X10^3/uL (4.5-11.0)
--- NOTE | 2022-03-12 07:29 | P.DS_ITS ---
Discharge Providers Provider Date of admission: 03/10/22 00:54 Discharge Date: 03/12/22 Primary care physician: Kun Nash DO Consults: 03/10/22 05:30 Consult to Necktie [employer] Routine Comment: Discharge provider: Yg Donis MD Summary Hospital Course Date Patient Seen: 03/12/22 Time Patient Seen: 07:30 Diagnoses: Intrautereine gestation, 35+4 weeks EGA, delivered by repeat section in labor Prior section x 2 Polyhydramnios Abdomino-pelvic adhesions, extensive Anemia, chronic and acute due to operative blood loss Hospital Course: Tayla was admitted on the morning of 03/10/2022 for repeat section. Procedure itself was quite challenging due to the patient's morbid obesity and dense adhesions involving the anterior aspect of the uterus to the abdominal wall. Details of the procedure well summarized on the operative note of that date. Following the procedure itself, the patient did well but had a slow, steady decline in her hemoglobin/hematocrit which stabilized with use of abdominal binder. She received 2 rounds of intravenous iron but did not require transfusion time of discharge, and at the time of discharge her H&H were rising with the discharge value of 8.2 and 24.4 respectively. The infant required transfer for NICU care but following surgery she has done well with the mother experiencing prompt return of bowel and bladder function, she is ambulating independently, tolerating regular diet, and her pain is well relieved with oral pain medications. She will be discharged at this time in an afebrile normotensive condition home after counseling regarding precautionary symptoms, limitations of activity, medications, and plans for follow-up. Medications at discharge will include oxycodone 10 mg, # 45, and she will resume all pre- admission medications. Follow-up for an incision check will be one-week postop. Peripartum Data Delivery Method: Section Laceration Description: None complications: other (Anemia) [place] 1: Gender: Female Disposition of : NICU Status at Discharge Cognitive/behavioral status at discharge: oriented Functional status at discharge: independent ambulation Overall status at discharge: patient is progressing back to baseline Time Spent with Patient Time attestation: Total time spent providing and/or coordinating discharge services: Time spent: Less than 30 minutes Objective Labs Result Diagrams: 03/12/22 05:58 Labs: Laboratory Results - last 24 hr 12/10/2303/11/22 03/11/22 01:30 06:55 18:45 WBC 7.5 7.3 RBC 2.66 L 2.65 L Hgb 8.1 L 8.1 L Hct 23.7 L 23.6 L MCV 89.2 89.1 MCH 30.3 30.5 MCHC 34.0 34.3 RDW 14.3 14.8 Plt Count 115 L 128 L Neut % (Auto) 78.5 H 79.4 H Lymph % (Auto) 14.1 L 14.4 L [place] % (Auto) 6.1 4.7 Eos % (Auto) 1.1 L 1.3 L Baso % (Auto) 0.2 0.2 Neut # (Auto) 5900 5800 Lymph # (Auto) 1100 1000 L [place] # (Auto) 500 300 Eos # (Auto) 100 100 Baso # (Auto) 0 0 PT INR APTT Crossmatch See Detail 03/11/22 03/12/22 18:45 05:58 WBC 8.1 RBC 2.74 L Hgb 8.2 L Hct 24.4 L MCV 89.0 MCH 29.8 MCHC 33.5 RDW 14.7 Plt Count 149 L Neut % (Auto) 81.6 H Lymph % (Auto) 11.9 L [place] % (Auto) 5.2 Eos % (Auto) 1.1 L Baso % (Auto) 0.2 Neut # (Auto) 6600 Lymph # (Auto) 1000 L [place] # (Auto) 400 Eos # (Auto) 100 Baso # (Auto) 0 PT 11.8 INR 1.0 APTT 28 Crossmatch Exam Vital Signs (past 8 hours): Oxygen Delivery Method Room Air Const General: cooperative and comfortable Nutritional Appearance: average body habitus Orientation: alert and oriented x3 [facility] Head: normal to inspection, atraumatic and abrasion Ears: hearing grossly normal bilaterally Face and sinus: face symmetric Eyes General: appearance normal, both eyes and all related structures Conjunctivae: conjunctivae normal Sclera: sclerae normal EOM: EOM intact bilaterally Neck Neck: normal visual inspection Resp Effort & Inspection: normal respiratory effort and able to speak in complete sentences Auscultation: clear to auscultation bilaterally Cardio Rate: regular rate Rhythm: regular rhythm Heart Sounds: S1 normal, S2 normal and no murmurs GI Inspection: normal to inspection and incision (Compression dresing rmoved, AquCel applied) Palpation: soft, no hepatosplenomegaly, mass (Firm,moderately tender fundus, U- 4) and tender (Mild, diffuse postsurgical tenderness) Auscultation: normal bowel sounds External Female Exam: other (No significant bleeding noted) Extrem General: no calf tenderness Psych Appearance: grossly normal Mental Status: mental status grossly normal Speech and Movement: speech and movement normal Mood: congruent mood Affect: normal affect Attitude: cooperative Thought Process: normal Thought Content: normal Judgment: judgment good Discharge Plan Discharge Plan Patient Disposition: Home Provider Discharge Comment: Please review the written instructions you received when you were discharged from the hospital. Your follow-up appointment will be scheduled for 1 week after your delivery and I look forward to seeing you then. If however in the meanwhile you have any issues, concerns, or problems, please contact me either through the office phone [phone] or via the patient portal. Discharge orders & Medications Prescriptions: New ondansetron 8 mg tablet,disintegrating 8 mg PO Q8H PRN (Reason: nausea and vomiting) Qty: 20 0RF Continued sumatriptan succinate [Imitrex] 50 mg tablet 50 mg PO .COMPLEX Qty: 10 0RF Rx Instructions: 50 mg orally; tcxbijzavu-uutsbilwjohun-gqbf 50-325-40 mg tablet 2 tab PO Q6H PRN (Reason: pain) Qty: 30 2RF Rx Instructions: do not exceed 6 tabs per 24 hrs ferrous sulfate 300 mg (60 mg iron)/5 mL liquid 300 mg PO DAILY cholecalciferol (vitamin D3) 50 mcg (2,000 unit) capsule 8,000 unit PO DAILY prenat.vits,amna,hor-xmov-hedch Tablet 1 tab PO DAILY No Action tramadol 100 mg tablet 100 mg PO Q6H PRN (Reason: pain) Qty: 30 0RF Follow up/Referrals: Kun Nash DO [Primary Care Provider] - Yg Donis MD [Physician] - (Follow up appt and incision check with Dr. Donis on 03/17/2022 @ 1145 am) Discharge Health Status Multidrug resistant organism: No MDRO Diet/Activity/Treatments Diet: Diet as Tolerated Activity: As tolerated Other treatments: Bmfi-xlz-uergkmm Tylenol and/or ibuprofen may used for additional pain relief. Omin-rvd-kuwzfpo stool softeners and/or MiraLax made used for constipation Skin/Wound/Dressing Care Report to your healthcare provider any signs of infection, such as:: chills, fever, increased pain, unusual drainage and unusual redness Dressing: Dressing will be removed at your one-week postop visit. Visit Report/Discharge Packet Instructions: DI for , DI for Prescription Opioid Use Stand Alone Forms: Discharge: Care Discharge Data Primary Care Provider: Kun Nash
[2022-03-12 07:54] VITALS: BP 109/64; PULSE 87; RESP 15; TEMP 36.8
[2022-03-12] MEDS: DOCUSATE 100 MG CAPSULE 200 MG PO (08:37)
[2022-03-12] MEDS: ENOXAPARIN 40 MG/0.4 ML SYRINGE SUBCUT (10:29)
== END 2022-03-12 10:44 | disposition home or self-care (01) | DRG 540 ==
PROVIDERS: Admitting Provider Obstetrics & Gynecology; PCP Family Medicine; Referring Provider Obstetrics & Gynecology; Visit Provider Obstetrics & Gynecology
PROC: 10D00Z1 Extraction of Products of Conception, Low, Open Approach (ICD-10-PCS; CPT 59514; principal; 2022-03-10 02:30)
DX: O60.14X0 Preterm labor third trimester with preterm delivery third trimester, not applicable or unspecified (principal); O99.214 Obesity complicating childbirth; O40.3XX0 Polyhydramnios, third trimester, not applicable or unspecified; O99.02 Anemia complicating childbirth; D62 Acute posthemorrhagic anemia; Z37.0 Single live birth; Z3A.35 35 weeks gestation of pregnancy; E66.01 Morbid (severe) obesity due to excess calories; N73.6 Female pelvic peritoneal adhesions (postinfective); O32.2XX0 Maternal care for transverse and oblique lie, not applicable or unspecified; Z20.822 Contact with and (suspected) exposure to COVID-19; Z34.83 Encounter for supervision of other normal pregnancy, third trimester; O99.019 Anemia complicating pregnancy, unspecified trimester
CPT/HCPCS: 36415; 59025; 59050; 59514; 76819; 80076; 82570; 84156; 84550; 85025; 85610; 85730; 86850; 86900; 86901; 87635; 87653; 96365; C9803; G0378; G0379; J0690; J1170; J1650; J1756; J2250; J2274; J2405; J2590; J2765; J3010

== ENCOUNTER → 2022-04-07 09:49 | Outpatient (CLI) | payer OTHER, MEDICAID, SELFPAY ==
[2020-10-01 18:13] VITALS: BMI 52.9
== END ==
PROVIDERS: PCP Family Medicine; Visit Provider Physician Assistant
DX: O90.9 Complication of the puerperium, unspecified (principal)
CPT/HCPCS: 87070; 87075; 87205

== ENCOUNTER → 2023-05-17 08:49 | Outpatient (CLI) | payer OTHER, MEDICAID, SELFPAY ==
[2023-01-11 13:01] VITALS: BMI 52.9
[2023-05-17 19:14] LABS: Add Manual Diff / Slide Review NO; Basophils Absolute Auto 0 /uL (0-100); Basophils Percent Auto 0.7 % (0-2); Eosinophils Absolute Auto 100 /uL (0-450); Eosinophils Percent Auto 2.4 % (2-4); Hematocrit 40.7 % (36-46); Hemoglobin 13.7 g/dL (12.0-16.0); Lymphocytes Absolute Auto 1900 /uL (1100-4500); Lymphocytes Percent Auto 31.7 % (25-40); Mean Corpuscular HGB Conc 33.6 % (30-36); Mean Corpuscular Hemoglobin 29.1 PG (26-34); Mean Corpuscular Volume 86.7 fL (80-100); Monocytes Absolute Auto 200 /uL (0-900); Neutrophils Absolute Auto 3600 /uL (1500-7000); Neutrophils Percent Auto 61.2 % (50-75); Platelet Count 261 X10^3/uL (150-400); Red Blood Cell Count 4.69 X10^6/uL (4.0-5.2); Red Cell Distribution Width 13.3 % (11.6-14.8)
[2023-05-17 19:34] LABS: HEMOLYSIS < 15 (0-50); Iron 118 ug/dL (37-170)
[2023-05-17 19:37] LABS: Alanine Aminotransferase 31 IU/L (<35); Albumin 4.2 g/dL (3.5-5.0); Albumin Globulin Ratio 1.4 (1.0-2.8); Alkaline Phosphatase 62 U/L (38-126); Aspartate Aminotransferase 21 IU/L (14-36); BUN Creatinine Ratio 13.6 (6-22); Bilirubin Total 0.6 mg/dL (0.2-1.3); Blood Urea Nitrogen 8 mg/dL (7-17); Calcium 9.4 mg/dL (8.4-10.2); Carbon Dioxide 28 mmol/L (22-32); Chloride 100 mmol/L (98-107); Cholesterol 199 mg/dL (140-199); Estimated Glomerular Filt Rate > 60 mL/min (>60); Globulin 3.1 g/dL (1.7-4.1); Glucose 98 mg/dL (70-100); HDL Cholesterol 36 mg/dL (40-60); HEMOLYSIS < 15 (0-50); LDL Cholesterol Calculated 128 mg/dL (<100); Potassium 4.6 mmol/L (3.4-5.1); Sodium 137 mmol/L (137-145); Total Protein 7.3 g/dL (6.3-8.2); Triglycerides 174 mg/dL (35-150)
[2023-05-17 19:50] LABS: Percent Iron Saturation 36 % (15-50); Total Iron Binding Capacity 332 ug/dL (265-497); Transferrin 266 mg/dL (206-381)
[2023-05-17 19:52] LABS: Vitamin D 25 Hydroxy (D3) < 12.8 ng/mL (30.0-100.0)
[2023-05-17 20:12] LABS: TSH w/ Reflex to FT4 0.59 uIU/mL (0.47-4.68)
[2023-05-17 20:19] LABS: Ferritin 22 ng/mL (6-137)
[2023-05-17 20:33] LABS: Vitamin B12 Reflex MMA if <400 585 pg/mL (239-931)
[2023-05-19 05:15] LABS: x Labcorp Estim. Avg Glu (eAG) 120 mg/dL (.); x Labcorp Hemoglobin A1c 5.8 % (4.8-5.6)
== END ==
PROVIDERS: PCP Family Medicine; Visit Provider Family Medicine
DX: Z13.1 Encounter for screening for diabetes mellitus (principal); Z13.6 Encounter for screening for cardiovascular disorders; G47.10 Hypersomnia, unspecified; G89.29 Other chronic pain; R51.9 Headache, unspecified; D64.9 Anemia, unspecified
CPT/HCPCS: 80053; 80061; 82306; 82607; 82728; 83036; 83540; 83550; 84443; 85025

== ENCOUNTER → 2024-04-30 13:04 | Outpatient (CLI) | payer SELFPAY ==
[2023-01-11 13:01] VITALS: BMI 52.9
[2024-04-30 19:41] LABS: Hemoglobin A1C% w Est Avg Glu 5.4 % (4.0-6.0)
[2024-04-30 19:54] LABS: LDL Cholesterol Direct 109 mg/dL (<100)
[2024-04-30 19:55] LABS: Vitamin D 25 Hydroxy (D3) < 12.8 ng/mL (30.0-100.0)
[2024-04-30 20:08] LABS: TSH w/ Reflex to FT4 1.13 uIU/mL (0.47-4.68)
== END ==
PROVIDERS: PCP Family Medicine; Visit Provider Family Medicine
DX: R03.0 Elevated blood-pressure reading, without diagnosis of hypertension (principal); R00.0 Tachycardia, unspecified; G47.10 Hypersomnia, unspecified; E55.9 Vitamin D deficiency, unspecified; R73.09 Other abnormal glucose; E78.2 Mixed hyperlipidemia
CPT/HCPCS: 82306; 83036; 83721; 84443

== ENCOUNTER 2024-09-30 14:01 | Emergency (ER) | payer SELFPAY ==
[2023-01-11 13:01] VITALS: BMI 52.9
[2024-09-30 14:08] VITALS: BP 165/110; PULSE 116; RESP 17; TEMP 36.2; O2SAT 98; BMI 47.0
[2024-09-30] MEDS: OXYCODONE/ACETAMINOPHEN 5/325 TABLET 1 TAB PO (14:23)
[2024-09-30] MEDS: IBUPROFEN 400 MG TABLET PO (14:24)
--- NOTE | 2024-09-30 15:41 | ED_ITS ---
HPI - Extremity Injury (Lower) General Chief Complaint: Extremity Injury, Lower Stated Complaint: injured while dancing,tight,hot,back rt leg, pain Time Seen by Provider: 09/30/24 14:02 Source: patient Mode of arrival: Wheelchair History of Present Illness HPI Narrative: Otherwise healthy 38-year-old woman was dancing the night of her wedding when she felt a sharp pain at the back of her right calf. There was no obvious trauma or injury. Since unable to walk and pain has continued to worsen. She presents today for further evaluation concerned about an Achilles tendon injury. Related Data Previous Rx's ?Medication ?Instructions ?Recorded promethazine 12.5 mg tablet 12.5 mg PO .QD PRN nausea and 05/09/23 vomiting #30 tabs meloxicam 15 mg tablet 15 mg PO DAILY #30 tabs 05/06 09/25 ergocalciferol (vitamin D2) 1,250 1,250 mcg PO QWEEK v itamin D- ONCE 06/29/24 mcg (50,000 unit) capsule PER WEEK for 3 months. #12 caps dextroamphetamine-amphetamine 20 20 mg PO BID focus #6 0 tabs 09/28/24 mg tablet (Adderall) oxycodone-acetaminophen 5 mg-325 1 tab PO Q6H PRN pain #14 tabs 09/30/24 mg tablet Allergies Allergy/AdvReac Type Severity Reaction Status Date / Time amoxicillin AdvReac Severe Major Hives Verified 09/30/24 14:08 Penicillins AdvReac Severe Severe Verified 09/30/24 14:08 Hives Review of Systems Review of Systems Narrative: Pertinent positive and negative findings as per HPI Patient History Medical History Vitamin D deficiency Anemia Morbid obesity ADD (attention deficit disorder) Chemical peritonitis following a procedure section wound complication Pelvic infection (~10/01/20) Gallstones Postoperative pain Gestational hypertension Ovarian cyst Pneumonia Asthma Migraine Anxiety AMA (advanced maternal age) multigravida 35+ Surgical History H/O abdominal surgery History of bilateral breast reduction surgery Previous section complicating S/P wisdom tooth extraction (~2008) History of carpal tunnel surgery of right wrist (~2014) Hx of tonsillectomy (~2017) History of appendectomy S/P primary low transverse (~08/10/12) Family History Mother History of prediabetes Cancer Breast cancer AA (alcohol abuse) Ovarian cyst Father Joint replaced Sepsis Grandmother Head injury due to trauma Smoker Obesity Wheelchair bound Grandfather Cancer Colon cancer Grandmother Alzheimers disease Grandfather Head injury due to trauma AA (alcohol abuse) Sister Ovarian cyst Family/Other AA (alcohol abuse) Family/Other AA (alcohol abuse) Drug addiction Family estrangement Colon cancer Social History marital status: unmarried,living together number of children: 2 household members: significant other and children lives independently: Yes housing: house pets and animals: Yes (1 dog and 1 kitten, not managing litter box) education level: vocational occupational status: unemployed current occupational exposures/hazards: No special tiff needs: No seatbelt use: always water heater temp set < 120 deg: No working smoke detector in home: Yes fire extinguisher in home: Yes carbon monox detector in home: Yes firearms in home: Yes firearms unloaded and locked: Yes do you feel safe at home: Yes Smoking Status: Current every day smoker second hand exposure: No alcohol intake: former substance use type: does not use during the past year weight has: decreased > 10 lbs well-balanced diet: daily or most days daily servings fruits/ve-4 caffeine: Yes (rarely and only in small amounts) Type(s) of exercise: walking additional social history: kids: 10 yo, 2 yo, 6 months. Smoking Status: Current every day smoker alcohol intake frequency: holidays/special occasions only Exam Initial Vital Signs Initial Vital Signs: Vital Signs Temperature 97.2 F L 09/30/24 14:08 Pulse Rate 116 H 09/30/24 14:08 Respiratory Rate 17 09/30/24 14:08 Blood Pressure 165/110 H 09/30/24 14:08 Pulse Oximetry 98 09/30/24 14:08 Oxygen Delivery Method Room Air 09/30/24 14:08 General: Alert appropriate in no acute distress Respiratory: Able to speak in full sentences, no obvious respiratory distress Skin: No obvious rashes, warm and dry Neurologic: Grossly intact no obvious asymmetries or abnormalities Psych: appropriate insight and affect, cooperative Extremity: Right lower calf and Achilles area is exquisitely tender to touch, so much so that adequate exam is not possible. She does not have significant bruising or swelling in comparison to the left side. I believe I am able to palpate a step-off over the Achilles tendon. She is not able to dorsiflex her foot. She is neurovascularly intact distally Course Orders Ordered: Discontinued Medications Ibuprofen (Ibuprofen 400 Mg Tablet) 400 mg PO NOW ONE Stop: 09/30/24 14:14 Last Admin: 09/30/24 14:24 Dose: 400 mg Documented By: Oxycodone/Acetaminophen (Oxycodone/Acetaminophen 5/325 Tablet) 1 tab PO NOW ONE Stop: 09/30/24 14:14 Last Admin: 09/30/24 14:23 Dose: 1 tab Documented By: Vital Signs Vital signs: Vital Signs - 8 hr 09/30/24 14:08 Temperature 97.2 F L Pulse Rate 116 H Respiratory Rate 17 Blood Pressure 165/110 H Pulse Oximetry 98 Oxygen Delivery Method Room Air MDM - Extremity Injury (Lower) MDM Narrative Medical decision making narrative: 38-year-old woman who was dancing last night at her own wedding, felt a sharp pain spontaneously back of her right ankle and thought somebody had kicked her. There was no actual trauma. She is presenting today with significant pain, exam is challenging but I believe there is a step-off over the Achilles tendon and she is not able to dorsiflex. Exam presentation is consistent with at least partial if not complete Achilles tendon rupture. Findings reviewed with the patient. She responded well to ibuprofen +1 Percocet for pain control. That point pain was controlled enough that I was able to place a short-leg posterior splint in slight dorsiflexion. Pain was better controlled with the immobilization. She is instructed to avoid weight-bearing, given crutches and I did suggest she consider finding a knee scooter to use. She is referred to our orthopedic surgeon on-call today, Dr. Carmona. Discussed pain control, elevation, loosening the splint of the feels like it is too tight. She will need to be more thoroughly examined when she can actually be touched and definitive treatment can be discussed with the orthopedic surgeon. She is safe for discharge Discharge Plan Departure Patient Disposition: Home Clinical Impression: Achilles tendon rupture Qualifiers: Encounter type: initial encounter Laterality: right Qualified Code(s): S86.011A - Strain of right Achilles tendon, initial encounter Instructions: DI for Achilles Tendon Rupture Activity Restrictions/Additional Instructions: Thank you for coming in today. I am so sorry going to have this painful memory of your day. I think that you are right you have at least partially torn if not completely torn the Achilles tendon on the right side. You are swollen enough and tender enough that complete exam is difficult today. I have placed you in a long leg splint with your foot slightly pointed down so the Achilles tendon is all closely approximated. If you are having increasing pain or feels like the splint is too tight it is okay to loosen it up. Please do not walk on this foot do keep your toes slightly pointed down. I have given you crutches and I would strongly recommend buying a knee scooter. It will make your life much easier Using 400 mg of ibuprofen (2 [id number] pills) and 1 Tylenol every 6 hours can be very helpful in controlling pain. For severe pain 400 mg of ibuprofen and 1 Percocet can be helpful. Percocet will make you constipated, please take a stool softener with it Expect to hurt more over the 1st 48 hours. Keeping your foot as elevated as possible can help with the increased pain and aching from the swelling that you are going to experience at the end of the day after being up and around Please contact our orthopedic surgeon on-call today, [facility], their office #[phone]. Foot and ankle injuries are Dr. Carmona's specialty If you find that you are getting worse or develop any new symptoms, please feel free to return to the emergency department for further evaluation. Prescriptions: New oxycodone-acetaminophen 5-325 mg tablet 1 tab PO Q6H PRN (Reason: pain) Qty: 14 0RF No Action dextroamphetamine-amphetamine [Adderall] 20 mg tablet 20 mg PO BID Qty: 60 0RF Rx Instructions: administer doses at least 4-6 hours apart ergocalciferol (vitamin D2) 1,250 mcg (50,000 unit) capsule 1,250 mcg PO QWEEK Qty: 12 0RF Rx Instructions: for 3 months -- then change to once per month. promethazine 12.5 mg tablet 12.5 mg PO .QD PRN (Reason: nausea and vomiting) Qty: 30 3RF Rx Instructions: for migraines (nausea/vomiting) meloxicam 15 mg tablet 15 mg PO DAILY Qty: 30 3RF Referrals: Shahla Han MD [Primary Care Provider, Family Practice] Stand Alone Forms: Patient Portal/API
[2024-09-30] MEDS: OXYCODONE/APAP 5/325 PREPACK 1 BOTTLE MISC (16:00)
== END 2024-09-30 16:05 | disposition home or self-care (01) ==
PROVIDERS: Emergency Provider Emergency Medicine; PCP Family Medicine
DX: S86.011A Strain of right Achilles tendon, initial encounter (principal); X58.XXXA Exposure to other specified factors, initial encounter; Y93.41 Activity, dancing
CPT/HCPCS: 29515; 99283

== ENCOUNTER → 2025-02-04 11:28 | Outpatient (CLI) | payer OTHER, SELFPAY ==
[2023-01-11 13:01] VITALS: BMI 52.9
[2025-02-04 18:49] LABS: Hematocrit 38.7 % (36-46); Hemoglobin 13.0 g/dL (12.0-16.0); Mean Corpuscular HGB Conc 33.7 % (30-36); Mean Corpuscular Hemoglobin 29.4 PG (26-34); Mean Corpuscular Volume 87.5 fL (80-100); Platelet Count 268 X10^3/uL (150-400)
[2025-02-04 19:32] LABS: Alanine Aminotransferase 49 IU/L (<35); Albumin 4.4 g/dL (3.5-5.0); Albumin Globulin Ratio 1.5 (1.0-2.8); Alkaline Phosphatase 75 U/L (38-126); Blood Urea Nitrogen 10 mg/dL (7-17); Calcium 9.6 mg/dL (8.4-10.2); Carbon Dioxide 29 mmol/L (22-32); Chloride 101 mmol/L (98-107); Estimated Glomerular Filt Rate > 60 mL/min (>60); Globulin 3.0 g/dL (1.7-4.1); Glucose 109 mg/dL (70-99); HEMOLYSIS < 15 (0-50); Potassium 4.5 mmol/L (3.4-5.1); Sodium 138 mmol/L (137-145); Total Protein 7.4 g/dL (6.3-8.2)
[2025-02-04 19:34] LABS: Hemoglobin A1C% w Est Avg Glu 5.4 % (4.0-6.0)
[2025-02-04 19:49] LABS: Vitamin D 25 Hydroxy (D3) < 12.8 ng/mL (30.0-100.0)
[2025-02-04 20:07] LABS: Ferritin 11 ng/mL (6-137)
[2025-02-04 20:41] LABS: HCG Quantitative /Beta subunit < 2.39 mIU/mL
[2025-02-04 20:55] LABS: Thyroid Stimulating Hormone 1.66 uIU/mL (0.47-4.68)
== END ==
PROVIDERS: PCP Family Medicine; Visit Provider Family Medicine
DX: R73.09 Other abnormal glucose (principal); E55.9 Vitamin D deficiency, unspecified; E61.1 Iron deficiency; R03.0 Elevated blood-pressure reading, without diagnosis of hypertension; R42 Dizziness and giddiness; E78.2 Mixed hyperlipidemia; E66.01 Morbid (severe) obesity due to excess calories; Z68.43 Body mass index [BMI] 50.0-59.9, adult; N92.0 Excessive and frequent menstruation with regular cycle
CPT/HCPCS: 80053; 82306; 82728; 83036; 84443; 84702; 85027